=== PATIENT | female | born 1940 | race Caucasian/White ===

== ENCOUNTER 2022-07-11 13:13 | Observation (INO) | payer MEDICARE, BC, SELFPAY ==
[2022-07-11] VITALS (7 sets, daily range): BP systolic 125–163; BP diastolic 45–87; PULSE 78–89; RESP 16–18; TEMP 36.6–36.7; O2SAT 94–99; BMI 17.6; BMI 17.8
--- NOTE | 2022-07-11 13:27 | CRLHL7_ITS ---
For Patients: As a result of the Cures Act, medical imaging exams and procedure reports are released immediately into your electronic medical record. You may view this report before your referring provider. If you have questions, please contact your health care provider. INDICATION: Altered mental status. TECHNIQUE: Chest 2 views. IMPRESSION: Chronic bronchial wall thickening lower lobes. 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 No effusion or pneumothorax. No acute pulmonary consolidation. Mild cardiomegaly with a TAVR prosthesis. Dictated by Thai Foster MD @ 07/11/2022 3:35:55 PM (Electronically Signed)
--- NOTE | 2022-07-11 13:38 | CRLHL7_ITS ---
For Patients: As a result of the Century Cures Act, medical imaging exams and procedure reports are released immediately into your electronic medical record. You may view this report before your referring provider. If you have questions, please contact your health care provider. INDICATION: Headache, vision changes. TECHNIQUE: CTA head with contrast bolus tracking and 3D MIP reconstruction. FINDINGS: There is suboptimal arterial opacification. There is extensive calcified plaque around the carotid siphons. There is no obvious large vessel occlusion. No aneurysm is identified. IMPRESSION: No large vessel occlusion. Please note that all CT scans at this facility use dose modulation, iterative reconstruction, and/or weight-based dosing when appropriate to reduce radiation dose to as low as reasonably achievable. Dictated by George Sadler MD @ 07/11/2022 4:33:25 PM (Electronically Signed)
--- NOTE | 2022-07-11 13:38 | CRLHL7_ITS ---
For Patients: As a result of the Century Cures Act, medical imaging exams and procedure reports are released immediately into your electronic medical record. You may view this report before your referring provider. If you have questions, please contact your health care provider. INDICATION: Headache, vision changes. TECHNIQUE: CTA neck with contrast bolus tracking and 3D MIP reconstruction. FINDINGS: There is very little arterial occlusion, significantly limiting the study. There is carotid atherosclerosis. There is no obvious significant carotid or vertebral artery stenosis or dissection. IMPRESSION: Carotid atherosclerosis. No obvious significant stenosis or dissection on this limited study. Please note that all CT scans at this facility use dose modulation, iterative reconstruction, and/or weight-based dosing when appropriate to reduce radiation dose to as low as reasonably achievable. Dictated by George Sadler MD @ 07/11/2022 4:35:26 PM (Electronically Signed)
--- NOTE | 2022-07-11 13:38 | CRLHL7_ITS ---
For Patients: As a result of the Century Cures Act, medical imaging exams and procedure reports are released immediately into your electronic medical record. You may view this report before your referring provider. If you have questions, please contact your health care provider. INDICATION: Patient change in headache, status post TAVR 07/08 TECHNIQUE: Noncontrast axial CT of the head. Coronal and sagittal reformats. Bone and soft tissue algorithms. COMPARISON: No relevant comparison studies available at this institution. FINDINGS: The ventricles and cortical sulci appear slightly prominent. No midline shift or mass effect. No acute intracranial hemorrhage or extra-axial fluid collection. Eaton-white matter differentiation is grossly maintained. Suggestion of mild hypoattenuation along the posteromedial left occipital lobe is favored artifactual. There is mild supratentorial white matter hypoattenuation, suggestive of chronic microangiopathy. Scattered calcific plaquing of the intracranial ICAs. Midline structures are unremarkable. Bony calvarium appears grossly intact. Paranasal sinuses and mastoid air cells are clear. Orbits are unremarkable. IMPRESSION: 1. No CT evidence of acute intracranial abnormality. 2. Mild cerebral volume loss and mild presumed chronic microangiopathy changes. Please note that all CT scans at this facility use dose modulation, iterative reconstruction, and/or weight-based dosing when appropriate to reduce radiation dose to as low as reasonably achievable. Dictated by Sakina Victoria MD @ 07/11/2022 3:14:45 PM (Electronically Signed)
--- NOTE | 2022-07-11 13:40 | ED.GENADULT ---
HPI - General Adult General Time Seen by Provider: 13:32 Date Seen: 07/11/22 Chief complaint: Post Op Complication Stated complaint: Reaction to heart surgery 07/08 seeing things Time Seen by Provider: 07/11/22 13:25 Source: patient and family Mode of arrival: ambulatory Limitations: no limitations History of Present Illness HPI narrative: 82-year-old female who is postop day 3 status post TAVR who presents today with vision changes and visual hallucinations. Patient notes that she was doing well when she got home, then last night woke up and was seen ?trees and animals and people that did not look like people. This persisted all night. This morning when she looked in the mirror she had ?red poked dots? on her face. When watching gnosticism on TV she noted Polka dots on the alter boys robes as well. She has developed a slight frontal headache in the last hour. She denies chest pain or shortness of breath, no nausea vomiting, no abdominal pain. Notes that just prior to her surgery she was starting to have some urinary symptoms with frequency. Called her back hanger who recommended coming to the emergency department. Related Data Home Medications Medication Instructions Recorded Confirmed aspirin 81 mg capsule 81 mg PO DAILY 07/11/22 07/11/22 estradiol 0.01% (0.1 mg/gram) 1 appful vaginal DAILY 07/11/22 07/11/22 vaginal cream famotidine 40 mg tablet 40 mg PO DAILY 07/11/22 07/11/22 ferrous sulfate 325 mg (65 mg 325 mg PO DIRECTED 07/11/22 07/11/22 iron) tablet,delayed release sodium chloride 1 gram tablet 1,000 mg PO DAILY 07/11/22 07/11/22 Allergies Allergy/AdvReac Type Severity Reaction Status Date / Time latex Allergy Mild Rash Verified 07/11/22 14:00 Sulfa (Sulfonamide Allergy Mild Rash Verified 07/11/22 14:00 Antibiotics) Review of Systems Status of ROS: Reports: 10 or more systems reviewed and unremarkable except as noted in History and below PFSH PFSH Social History Non-prescribed substance use: denies use Exam Narrative: Exam Narrative: General: Well-developed and well-nourished, no acute distress Head: Atraumatic and normocephalic Eyes: Pupils are equal reactive, extraocular motions intact, conjunctiva clear ENT: External nose and ears are normal, posterior pharynx without erythema or exudate Neck: No midline cervical tenderness, full spontaneous range of motion the neck, trachea midline, no adenopathy Heart: Regular rate and rhythm, prominent valve click Lungs: Clear to auscultation bilaterally without wheezes or crackles Abdomen: Soft, nontender, nondistended with active bowel sounds Musculoskeletal: No tenderness, deformity, or edema Neurologic: Awake, alert, and oriented x3, no gross focal neurologic deficits, cranial nerves intact as tested Psych: Mood and affect are appropriate Skin: No rashes Const: Vital Signs, click to edit/add: Vital Signs - 24 hr 07/11/22 13:33 07/11/22 14:00 07/11/22 15:17 Temperature 98.0 F Pulse Rate 81 Pulse Rate [Right Pulse Oximeter] 89 78 Respiratory Rate 18 16 Blood Pressure [Ri ght Upper Arm] 149/87 H 148/78 H Pulse Oximetry 99 97 Oxygen Delivery Me thod Room Air Course Course Hospital Course: Patient seen examined, prior records reviewed. Patient presents today with some visual hallucinations status post TAVR on July 08. On exam here, no focal neurologic deficits and she says her symptoms are improved. She describes Polka dots when she looks at things as well as seen treatment animals, she denies visual floaters or flashers, no eye pain. Slight headache. No other neurologic findings and no neurologic deficits on exam. She denies chest pain or shortness of breath, valve click on exam. Symptoms most likely represent delirium either from medications after her TAVR, postoperative delirium, consider also infectious etiology. CT scan of the head is ordered although symptoms are not typical for intracranial ischemia or hemorrhage. Consider CT scan of the chest but no shortness of breath or chest pain, no crackles on lung exam suggest acute pulmonary edema or failure, or valve pathology. Chest x-rays ordered. Reevaluation(s) Reevaluation #1: Labs independently interpreted by me with mild hyponatremia, CBCs reassuring and creatinine is normal. Urinalysis is pending. CT scan of the head independently interpreted by me does not demonstrate any acute hemorrhage or other intracranial pathology. Chest x-ray and plain early interpreted by me demonstrates aortic prosthesis in place, possible trace infiltrate on the rate, no other acute findings. Radiology report from [facility] reviewed, proximal ICA plaquing with 50% narrowing on the left, less than 50% on the right. No intracranial occlusion or stenosis. Time: 15:26 Reevaluation #2: Urinalysis independently interpreted by me not consistent with infection. Paged interventional cardiology discussed patient's care. Patient recheck, she remains finally stable in emergency department elbow little bit anxious, says that she otherwise feels well. Time: 16:15 Reevaluation #3: Care discussed with Dr. Crenshaw, [facility] who feels that symptoms are not likely to be related to TAVR. Will discuss with Neurology. Time: 16:29 Additional Reevaluation(s): 4:50 p.m. care discussed with [facility] a Neurology, feel that is unlikely this is a stroke symptom but does recommend MRI which could be done tomorrow. Will need to check to see if TAVR is compatible with MRI this close to placement. Recheck patient and discussed plan for admission, possible MRI in the morning. Patient does not want to be admitted. I discussed my concerns with the patient that although she is able to tell that her visual illusions are not real currently, she could get worse and started having confusion that would make her unable to differentiate which she has actually seen verses the solutions. Additionally, concerned that without knowing the etiology of this problem, prognosis and expected clinical course cannot be predicted and patient could get worse fairly acutely in terms of confusion or mentation. She expressed understanding of this, says she feels like her visual hallucinations are improving, and declines admission. She has family who can stay with her tonight. She should contact her primary care doctor tomorrow for MRI, although I am waiting for call back today from Cardiology to find out if the TAVR is compatible. 5:08 p.m. patient is now agreeable to be observed in the hospital overnight. Discussed with Dr. Crenshaw, cardiology again, TAVR is MRI compatible immediately after placement with a 1.5/3 Pili magnet. Care discussed with Dr. Sánchez, hospitalist for admission. Vital Signs Vital signs: Initial Vital Signs Temperature 98.0 F 07/11/22 13:33 Temperature Source Temporal Artery Scan 07/11/22 13:33 Pulse Rate 89 07/11/22 13:33 Respiratory Rate 18 07/11/22 13:33 Blood Pressure 149/87 H 07/11/22 13:33 Blood Pressure Mean 107 07/11/22 13:33 Blood Pressure Position Sitting 07/11/22 13:33 Pulse Oximetry 99 07/11/22 13:33 Oxygen Delivery Method 07/11/22 13:33 Vital Signs Temperature 98.0 F 07/11/22 13:33 Pulse Rate 89 07/11/22 13:33 Respiratory Rate 18 07/11/22 13:33 Blood Pressure 149/87 H 07/11/22 13:33 Pulse Oximetry 99 07/11/22 13:33 Oxygen Delivery Method 07/11/22 13:33 Temperature 98.0 F 07/11/22 13:33 Pulse Rate 81 07/11/22 15:17 Respiratory Rate 16 07/11/22 14:00 Blood Pressure 148/78 H 07/11/22 14:00 Pulse Oximetry 97 07/11/22 15:17 Oxygen Delivery Method 07/11/22 13:33 Medical Decision Making Medical Records Medical records reviewed: Yes I reviewed the patient's medical records Lab Data Lab results reviewed: Yes I reviewed the patient's lab results Labs: Lab Results 07/11/22 07/11/22 07/11/22 Range/Units 14:00 14:00 15:30 WBC 8.39 (4.50-11.00) K/uL RBC 3.85 L (4.00-5.20) m/uL Hgb 12.0 (12.0-16.0) gm/dL Hct 35.8 (33.0-51.0) % MCV 93 (80-100) fL MCH 31 (26-34) pg MCHC 34 (32-36) gm/dL RDW Coeff of [place] 12.9 (11.5-15.5) % Plt Count 175 (140-440) K/uL Neut % (Auto) 72.0 (42.0-72.0) % Lymph % (Auto) 15.9 L (20-44) % Russell % (Auto) 10.3 (0.0-11.0) % Eos % (Auto) 1.2 (0.0-7.0) % Baso % (Auto) 0.4 (0.0-3.0) % Neut # (Auto) 6.05 (1.7-7.0) K/uL Lymph # (Auto) 1.30 (0.90-2.90) K/uL Russell # (Auto) 0.90 (0.00-0.90) K/UL Eos # (Auto) 0.10 (0.00-0.50) K/uL Baso # (Auto) 0.03 (0.00-0.30) K/uL Sodium 131 L (135-149) mmol/L Potassium 3.7 (3.6-5.1) mmol/L Chloride 95 L (96-114) mmol/L Carbon Dioxide 29 (20-32) mmol/L BUN 14 (7-30) mg/dL Creatinine 0.4 L (0.5-1.5) mg/dL Estimated Creat Clear 27.47 Estimated GFR 98 ml/min Glucose 96 (60-115) mg/dL Calcium 10.2 (8.4-10.6) mg/dL Urine Color Light yellow (Yellow) Urine Appearance Clear (Clear) Urine pH 7.0 (5.0-8.5) Ur Specific [place] 1.010 (1.000-1.030) Urine Protein Negative (Negative) Urine Glucose (UA) Negative (Negative) Urine Ketones Negative (Negative) Urine Blood Trace-intact A (Negative) Urine Nitrite Negative (Negative) Urine Bilirubin Negative (Negative) Urine Urobilinogen 0.2 (0.2-1.0) Ur Leukocyte Esterase Trace A (Negative) Urine RBC 2-5 A (0-2) Urine WBC 2-5 (0-5) Ur Squamous Epith Cells Few (None-Few) Urine Bacteria None (None) ECG Data Attestation: I personally reviewed and interpreted this ECG as follows: Prior ECG tracings: not available for review Interpretation: EKG independently interpreted by me performed at Discharge Plan Discharge Clinical Impression: S/P TAVR (transcatheter aortic valve replacement), Hallucinations, visual Patient Disposition: Admitted As Inpatient Condition: Improved
[2022-07-11 14:17] LABS: Basophils Absolute Auto 0.03 K/uL (0.00-0.30); Basophils Percent Auto 0.4 % (0.0-3.0); Eosinophils Percent Auto 1.2 % (0.0-7.0); Hematocrit 35.8 % (33.0-51.0); Immature Granulocytes Abs Auto 0.02 K/uL (0.00-0.30); Immature Granulocytes Pct Auto 0.2 %; Lymphocytes Percent Auto 15.9 % (20-44); Mean Corpuscular HGB Conc 34 gm/dL (32-36); Mean Corpuscular Hemoglobin 31 pg (26-34); Mean Corpuscular Volume 93 fL (80-100); Monocytes Percent Auto 10.3 % (0.0-11.0); Neutrophils Absolute Auto 6.05 K/uL (1.7-7.0); Platelet Count* 175 K/uL (140-440); RDW Coefficient of Variation % 12.9 % (11.5-15.5); Red Blood Count 3.85 m/uL (4.00-5.20); White Blood Count* 8.39 K/uL (4.50-11.00)
[2022-07-11 14:20] LABS: Slide Review Reflex No
[2022-07-11 14:29] LABS: Chloride* 95 mmol/L (96-114)
[2022-07-11 14:30] LABS: Potassium* 3.7 mmol/L (3.6-5.1); Sodium* 131 mmol/L (135-149)
[2022-07-11 14:32] LABS: Carbon Dioxide* 29 mmol/L (20-32); Creatinine* 0.4 mg/dL (0.5-1.5); Est. Creatinine Clearance* 27.47; Estimated Glomerular Filt Rate 98 ml/min
[2022-07-11 14:33] LABS: Blood Urea Nitrogen* 14 mg/dL (7-30); Calcium* 10.2 mg/dL (8.4-10.6); Glucose* 96 mg/dL (60-115)
[2022-07-11 15:40] LABS: Appearance Urine Clear (Clear); Bilirubin Urine Negative (Negative); Blood Urine Trace-intact (Negative); Color Urine Light yellow (Yellow); Glucose Urine Negative (Negative); Ketones Urine Negative (Negative); Leukocyte Esterase Urine Trace (Negative); Nitrite Urine Negative (Negative); Protein Urine Negative (Negative); Urobilinogen Urine 0.2 (0.2-1.0)
[2022-07-11] MEDS: 0.9 % SODIUM CHLORIDE 500 ML 500 ML IV (15:41)
[2022-07-11 16:06] LABS: Squamous Epithelial Cell Urine Few (None-Few)
[2022-07-11 18:10] LABS: SARS PCR* Negative SARS-CoV-2 (Negative)
--- NOTE | 2022-07-11 19:02 | PM.IMHP1 ---
Hospitalist- H&P: HPI History of Present Illness Time Seen by Provider: 18:45 Date Seen: 07/11/22 Chief complaint: Reaction to heart surgery 07/08 Narrative: Astrid Fields is a 82 year old female who underwent a TAVR on 07/09/2022 for severe symptomatic aortic stenosis at [facility] in presented through the ER today for visual hallucinations. After the procedure she recalls sleeping for a long time and feeling very cold for which she had a Rosina Hugger on. She says she was told by the doctors that she was doing so well that she could go home yesterday. On the car ride home her daughter commented that Jacquelyn did not seem herself. When she got to her daughter's house, she slept all day in the sunroom. Shruthi thinks she spent a night at her daughter's house and then was at home alone last night, but that would put three nights in between her surgery and today, but there have only been 2 nights. Last night Shruthi slept in her own bed and felt like she was tired, but afraid to sleep because whenever she closed her eyes she saw shapes that looked like half animal creatures, trees and other forms. She knew they were not real and she does not think she was confused. When she opened her eyes, the shapes were gone, but would come back as soon as she closed her eyes. She was afraid to go to sleep because of this. She then went to the bathroom and looked at her face in the mirror and saw black and red spots all over her face. Again she knew that this was not the case that they were actually there, but she saw them nonetheless. In the morning she was watching mass on TV and saw red and black spots on the alter boys white frocks. That is when she knew for sure that she was just seeing things and came to the ER. In the ER she again saw some shapes near the cabinets, but now she does not see anything abnormal. She had a headache this morning, but that is also gone. She denies any other focal symptoms, confusion, fever, or other vision problems. Shruthi admits to anxiety and says she is chronically anxious and drives my kids nuts. She also says she has a sore back today from laying on the hard table for the CT scan. Review of Systems Const: Reports: chills (first night after TAVR) and fatigue (for two days after TAVR sleeping more); Denies: fever Eyes: Reports: change in vision, dry eyes (chronic) and other (visual hallucinations) ENMT: Reports: throat pain (just after surgery); Denies: vertigo or nose bleeds Cardio: Denies: chest pain, palpitations or shortness of breath with exertion Resp: Denies: shortness of breath, cough or wheezing GI: Reports: abdominal pain (every evening for years), heartburn (occassionally, chronic) and constipation (occassionally, stopped iron); Denies: nausea, vomiting or diarrhea : Denies: painful urination, urinary frequency or urinary urgency Musculo: Reports: back pain Integ/Breast: Denies: rash or itching Neuro: Reports: headache (earlier today, gone now); Denies: numbness in extremities, weakness in extremities, lack of coordination, dizziness, vertigo, confusion or slurred speech Psych: Reports: anxiety Endo: Reports: fatigue (for two days after TAVR sleeping more) and cold intolerance Allergy/Immuno: Denies: wheezing PFSH PFSH Medical History (Updated 07/11/22 @ 19:56 by Pauly Sánchez MD) Cachexia Chronic hyponatremia Chronic superficial gastritis without bleeding Colon polyp GERD (gastroesophageal reflux disease) H/O echocardiogram Iron deficiency anemia Osteoporosis Severe aortic stenosis Surgical History (Updated 07/11/22 @ 19:56 by Pauly Sánchez MD) H/O rectocele repair (08/25/09) H/O rectocele repair (08/24/10) H/O tubal ligation (~1974) History of arthroscopy of left shoulder (~2008) Hx laparoscopic cholecystectomy (08/28/12) Hx of colonoscopy Hx of esophagogastroduodenoscopy (02/12/16) Family History (Updated 07/11/22 @ 19:53 by Pauly Sánchez MD) Sister Breast cancer Father Cancer Mother Lymphoma Social History (Updated 07/11/22 @ 19:51 by Pauly Sánchez MD) Narrative: Living independently. 2 years ago. He had dementia with behavioral disturbances and she says she is still not over his decline and . Smoked, 20 pack years, quit 49 years ago. Denies alcohol use. Denies recreational drug use. FULL CODE. Highest level of school completed/degree received: high school graduate Smoking Status: Former smoker Do you use any of these nicotine containing products: None How often do you have a drink containing alcohol: never How often do you have six or more drinks on one occasion: Never AUDIT-C Alcohol total score: 0 Non-prescribed substance use: denies use Caffeine: Yes service: No Meds Home Medications and Allergies Home Medications Medication Instructions Recorded Confirmed Type aspirin 81 mg capsule 81 mg PO DAILY 07/11/22 07/11/22 History calcium carbonate 600 mg-vitamin 1 tab PO DAILY 07/11/22 07/11/22 History D3 10 mcg (400 unit) tablet (Calcium 600 + D(3)) estradiol 0.01% (0.1 mg/gram) 1 appful vaginal DAILY PRN vaginal 07/11/22 07/11/22 History vaginal cream dryness famotidine 40 mg tablet 40 mg PO DAILY 07/11/22 07/11/22 History ferrous sulfate 325 mg (65 mg 325 mg PO DIRECTED 07/11/22 07/11/22 History iron) tablet,delayed release polyethylene glycol 3350 17 8.5 - 17 g PO DAILY PRN 07/11/22 07/11/22 History gram/dose oral powder (Miralax) sodium chloride 1 gram tablet 1,000 mg PO DAILY 07/11/22 07/11/22 History Allergies Allergy/AdvReac Type Severity Reaction Status Date / Time latex Allergy Mild Rash Verified 07/11/22 14:00 Sulfa (Sulfonamide Allergy Mild Rash Verified 07/11/22 14:00 Antibiotics) lisinopril AdvReac Mild Cough Verified 07/11/22 19:44 Exam Narrative: Exam Narrative: General: No acute distress. Awake alert oriented x3. Very kyphotic. HEENT: Normocephalic atraumatic, pupils equally round and reactive to light and accommodation. Oropharynx clear. Mucous membranes are moist. No cervical lymphadenopathy, thyromegaly or carotid bruits. No JVD. Cardiovascular: Regular rate and rhythm. Grade 1/6 systolic murmur loudest at the left lower sternal border. Chest: No increased work of breathing. Clear to auscultation bilaterally. No crackles or wheezes. Abdomen: Bowel sounds present. Soft, nondistended, nontender. No hepatosplenomegaly or masses. Groin: Normal external female genitalia. Bilateral femoral artery catheter wounds that have been glued. No erythema or drainage. These appear to be well and healing. Extremities: No edema, no cyanosis or clubbing. Skin: No jaundice, no pallor, no rashes. Neuro: There are no focal deficits. Romberg is negative. Gait is within normal limits. Cranial nerves 2-12 are intact. Extraocular movements are full. No nystagmus. No facial asymmetry. Tongue is midline. Peripheral vision and vision are grossly intact. She denies any hallucinations at present. Strength is 5/5 in all 4 extremities. DTRs intact and symmetric. Light touch sensation is intact in face body and extremities. Coordination is intact in upper and lower extremities. Const: Vital Signs, click to edit/add: Vital Signs - 24 hr 07/11/22 13:33 07/11/22 14:00 07/11/22 15:17 Temperature 98.0 F Pulse Rate 81 Pulse Rate [Right Pulse Oximeter] 89 78 Respiratory Rate 18 16 Blood Pressure [Ri ght Arm] Blood Pressure [Ri ght Upper Arm] 149/87 H 148/78 H Pulse Oximetry 99 97 Oxygen Delivery Me thod Room Air 07/11/22 18:34 Temperature 98.0 F Pulse Rate Pulse Rate [Right Pulse Oximeter] Respiratory Rate 16 Blood Pressure [Ri ght Arm] 163/71 H Blood Pressure [Ri ght Upper Arm] Pulse Oximetry 96 Oxygen Delivery Me thod Room Air Documenting provider has reviewed patient's vital signs: yes Hospitalist - H&P: Result Labs Labs: Short CBC 07/11/22 Range/Units 14:00 WBC 8.39 (4.50-11.00) K/uL Hgb 12.0 (12.0-16.0) gm/dL Hct 35.8 (33.0-51.0) % Plt Count 175 (140-440) K/uL BMP 07/11/22 14:00 Sodium 131 L Potassium 3.7 Chloride 95 L Carbon Dioxide 29 BUN 14 Creatinine 0.4 L Glucose 96 Calcium 10.2 Urine 07/11/22 Range/Units 15:30 Urine Color Light yellow (Yellow) Urine Appearance Clear (Clear) Urine pH 7.0 (5.0-8.5) Ur Specific [place] 1.010 (1.000-1.030) Urine Protein Negative (Negative) Urine Glucose (UA) Negative (Negative) Ordering Physician: Nacho Schaefer M.D. Date of Service: 07/11/22 Procedure(s): CT head/brain wo con Accession Number(s): [id number] cc: Nacho Schaefer M.D.; Liz Moseley D.O.~ For Patients: As a result of the Cures Act, medical imaging exams and procedure reports are released immediately into your electronic medical record. You may view this report before your referring provider. If you have questions, please contact your health care provider. INDICATION: Patient change in headache, status post TAVR 07/08 TECHNIQUE: Noncontrast axial CT of the head. Coronal and sagittal reformats. Bone and soft tissue algorithms. COMPARISON: No relevant comparison studies available at this institution. FINDINGS: The ventricles and cortical sulci appear slightly prominent. No midline shift or mass effect. No acute intracranial hemorrhage or extra-axial fluid collection. [place]-white matter differentiation is grossly maintained. Suggestion of mild hypoattenuation along the posteromedial left occipital lobe is favored artifactual. There is mild supratentorial white matter hypoattenuation, suggestive of chronic microangiopathy. Scattered calcific plaquing of the intracranial ICAs. Midline structures are unremarkable. Bony calvarium appears grossly intact. Paranasal sinuses and mastoid air cells are clear. Orbits are unremarkable. IMPRESSION: 1. No CT evidence of acute intracranial abnormality. 2. Mild cerebral volume loss and mild presumed chronic microangiopathy changes. Please note that all CT scans at this facility use dose modulation, iterative reconstruction, and/or weight-based dosing when appropriate to reduce radiation dose to as low as reasonably achievable. Dictated by Sakina Victoria MD @ 07/11/2022 3:14:45 PM (Electronically Signed) Ordering Physician: Nacho Schaefer M.D. Date of Service: 07/11/22 Procedure(s): CT angio head Accession Number(s): [id number] cc: Nacho Schaefer M.D.; Liz Moseley D.O.~ For Patients: As a result of the Cures Act, medical imaging exams and procedure reports are released immediately into your electronic medical record. You may view this report before your referring provider. If you have questions, please contact your health care provider. INDICATION: Headache, vision changes. TECHNIQUE: CTA head with contrast bolus tracking and 3D MIP reconstruction. FINDINGS: There is suboptimal arterial opacification. There is extensive calcified plaque around the carotid siphons. There is no obvious large vessel occlusion. No aneurysm is identified. IMPRESSION: No large vessel occlusion. Please note that all CT scans at this facility use dose modulation, iterative reconstruction, and/or weight-based dosing when appropriate to reduce radiation dose to as low as reasonably achievable. Dictated by George Sadler MD @ 07/11/2022 4:33:25 PM (Electronically Signed) Ordering Physician: Nacho Schaefer M.D. Date of Service: 07/11/22 Procedure(s): CT angio neck Accession Number(s): [id number] cc: Nacho Schaefer M.D.; Liz Moseley D.O.~ For Patients: As a result of the Cures Act, medical imaging exams and procedure reports are released immediately into your electronic medical record. You may view this report before your referring provider. If you have questions, please contact your health care provider. INDICATION: Headache, vision changes. TECHNIQUE: CTA neck with contrast bolus tracking and 3D MIP reconstruction. FINDINGS: There is very little arterial occlusion, significantly limiting the study. There is carotid atherosclerosis. There is no obvious significant carotid or vertebral artery stenosis or dissection. IMPRESSION: Carotid atherosclerosis. No obvious significant stenosis or dissection on this limited study. Please note that all CT scans at this facility use dose modulation, iterative reconstruction, and/or weight-based dosing when appropriate to reduce radiation dose to as low as reasonably achievable. Dictated by George Sadler MD @ 07/11/2022 4:35:26 PM (Electronically Signed) Assessment and Plan Assessment and plan (1) Hallucinations, visual: Status: Acute (2) S/P TAVR (transcatheter aortic valve replacement): Problem comment: Right transfemoral TAVR with a 23 mm Chantel S3 / ULTRA (if ) valve (+2cc, 3% oversized) Status: Acute Plan The ER physician spoke with marketing content manager at [facility] who did not think the visual hallucinations were directly related to the TAVR procedure. Also said that the TAVR valve it is MRI compatible immediately after being placed. Differential for visual hallucinations in the setting include delirium, stroke, seizure, prodrome to a seizure or migraine headache, retinal or optical disturbance, medication reaction, or other. She is on very few medications, and only a baby aspirin is new. None of the medications that she is on her psychoactive. The visual hallucinations are in both eyes, which rules out a retinal or optical disturbance. At this point I favor delirium, as I note that her perception of time is off and she is confused about some details since her surgery, she is quite anxious both now and according to her at baseline, and she has had normally a recent procedure, but has been at 3 different locations the last 3 days which may contribute to confusion. Stroke is also a possibility, but less likely. Admit for observation and obtain an MRI in the morning.
--- NOTE | 2022-07-11 19:18 | PC.NURSE ---
Up to floor at 1830. Pt. alert and oriented x4. Ambulating independently in room to BR. VSS. Denies chest pain, SOB, N/V/pain. tolerating a reg diet.
[2022-07-11] MEDS: SODIUM CHLORIDE 0.9 % (FLUSH) 10 ML SYRINGE 5 ML IVF (20:55)
[2022-07-11] MEDS: ACETAMINOPHEN 500 MG TABLET 1000 MG PO (22:45)
[2022-07-12 03:00] VITALS: BP 106/52; PULSE 84; RESP 18; TEMP 36.9; O2SAT 94
--- NOTE | 2022-07-12 05:48 | PC.NURSE ---
[id number] Pt pleasant and cooperative, slept fair during the night. C/O chronic back pain 3-11/29, tylenol, pillow and aqua-k pad used to help relieve pain, somewhat affective. No hallucinations noted this shift, denies chest pain, sob, headache, lightheaded/dizzy, nausea and vomiting. Ambulating to BR independently, tolerated activity well. two surgical sites to bilateral femoral arteries from TAVR procedure open to air, no drainage.
[2022-07-12 07:42] VITALS: BP 125/64; PULSE 86; RESP 16; TEMP 36.9; O2SAT 93
[2022-07-12 07:45] VITALS: PULSE 89
[2022-07-12 07:46] VITALS: PULSE 86; RESP 16
[2022-07-12] MEDS: ASPIRIN 81 MG TABLET EC PO (08:40)
[2022-07-12] MEDS: FAMOTIDINE 20 MG TABLET 40 MG PO (08:40)
[2022-07-12] MEDS: SODIUM CHLORIDE 1 GM TABLET PO (08:40)
[2022-07-12] MEDS: SODIUM CHLORIDE 0.9 % (FLUSH) 10 ML SYRINGE 5 ML IVF (08:41)
[2022-07-12 10:53] VITALS: BP 150/71; PULSE 82; RESP 18; TEMP 36.3; O2SAT 95
--- NOTE | 2022-07-12 11:15 | CRLHL7_ITS ---
For Patients: As a result of the Century Cures Act, medical imaging exams and procedure reports are released immediately into your electronic medical record. You may view this report before your referring provider. If you have questions, please contact your health care provider. INDICATION: Visual hallucinations. TECHNIQUE: Brain MRI without contrast. The following sequences were obtained: Sagittal T1 weighted sequence. DWI and ADC mapping sequences. Axial FLAIR and DILAN T2 weighted sequences. Susceptibility or GRE sequence. COMPARISON: Head CT from 07/11/2022. FINDINGS: Small focus of diffusion restriction within the right parietal lobe cortex, compatible with an acute infarct. Few additional punctate recent infarcts within the nearby right parietal subcortical white matter and left cerebellar hemisphere. No evidence of acute or chronic intracranial blood products. Patchy FLAIR hyperintensities throughout the supratentorial white matter, and to a lesser extent the central brainstem, typical for chronic microvascular ischemic change. Moderate generalized parenchymal volume loss. No mass effect or herniation. No hydrocephalus or extra-axial collections. The pituitary gland, parasellar structures and optic chiasm are normal. All the major intracranial vascular structures demonstrate normal flow-related signal. The orbital contents are normal. No calvarial or skull base marrow replacing process. No obstructive sinus disease. No extracranial soft tissue findings. IMPRESSION: 1. 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 No acute intracranial hemorrhage. 2. Moderate chronic microvascular ischemic changes within the supratentorial white matter, and to a lesser extent the central brainstem. Dictated by Carlito Steele MD @ 07/12/2022 11:57:16 AM (Electronically Signed)
--- NOTE | 2022-07-12 12:14 | PC.NURSE ---
End of shift. Pt has been very pleasant. no pain she is still seeing things on and off at times. md was updated flashing lights when she close and opens her eyes. no pain so far. she has heat to her back. she denies chest pain, sob, headache, lightheaded/dizzy, nausea and vomiting.? She is up ab jay in the room. , tolerated activity well.? two surgical sites to bilateral femoral arteries from TAVR procedure open to air, no drainage.? SL is patent.
--- NOTE | 2022-07-12 12:50 | P.DS_ITS ---
DS: Providers Provider Date Seen: 07/12/22 Date of admission: 07/11/22 17:28 Primary care physician: Liz Moseley DO Admitting Clinician: Pauly Sánchez MD Attending Physician on discharge: Newton Morales MD Date of Discharge: 07/12/22 DS: Diagnosis Discharge Diagnosis (1) Stroke: Status: Acute Problem details: MRI shows small new right parietal and left cerebellar stroke, suspicious for embolic stroke. Patient declines further evaluation at this time. Notably she had recent TAVR with recent echo. Cardiac monitoring here was normal. CTA of head and neck were unremarkable as well. Initiate Plavix plus aspirin for 1 month then aspirin to continue. Patient declines further outpatient monitoring or statin therapy at this time. (2) S/P TAVR (transcatheter aortic valve replacement): Status: Acute Problem details: Right transfemoral TAVR with a 23 mm Chantel S3 / ULTRA (if ) valve (+2cc, 3% oversized) (3) Hallucinations, visual: Status: Acute Problem details: Improved though still having mild symptoms. Possibly related to MRI findings DS: Summary Hospital Course Hospital Course: 82-year-old female status post TAVR 5 days ago presents with onset of visual hallucinations in the last day. Admitted to the hospital for evaluation of this. Overnight her symptoms have largely resolved though she still reports still seeing some abnormalities such as flashing lights when she opens her eyes. She recognizes these as unreal and is not delusional. CTA of the head and neck and MRI of the brain were obtained. Significant findings are primarily new small presumably embolic infarcts in right parietal and left occipital lobes. Had a long discussion with the patient about further evaluation treatment. She is quite adamant that she does not want aggressive evaluation and treatment. She was even quite reluctant to begin clopidogrel. She did not want any further outpatient evaluation. She feels like she spends too much time with doctors already. I did discuss risks and benefits of all of they potential evaluation and management for stroke. At this point she will accept adding clopidogrel to aspirin but no other interventions. She can discuss this with her primary care provider, Dr. Howard at her follow-up appointment. Status at Discharge Functional status at discharge: independent ambulation Overall status at discharge: patient is back to baseline Time Spent with Patient Time attestation: Total time spent providing and/or coordinating discharge services: Time spent: Greater than 30 minutes Exam Narrative: Exam Narrative: She is alert and appears in no distress. Speech is normal. Head is without trauma. Extraocular movements are full. Visual gotti are intact. No facial asymmetry. Oropharynx is normal. Tongue is midline. Intact sensation in her face. Respirations are clear to auscultation. Cardiovascular S1, S2, regular rate and rhythm. Abdomen: Bowel sounds active. Abdomen is soft without tenderness or mass. Upper extremities bilaterally with 5/5 strength in shoulder flexion and extension, elbow flexion extension, wrist flexion extension and head of ict strength and finger extension. Rapid finger movements normal. [id number] normal. Lower extremity bilateral strength with hip flexion, knee flexion and extension, ankle dorsiflexion and plantar flexion all 5/5. Babinski is downgoing toe. Heel-ruth is normal. Const: Vital Signs, click to edit/add: Vital Signs - 24 hr 07/11/22 13:33 07/11/22 14:00 07/11/22 15:17 Temperature 98.0 F Pulse Rate 81 Pulse Rate [Pulse Oximeter] Pulse Rate [Right Pulse Oximeter] 89 78 Respiratory Rate 18 16 Blood Pressure [Ri ght Arm] Blood Pressure [Ri ght Upper Arm] 149/87 H 148/78 H Pulse Oximetry 99 97 Oxygen Delivery Me thod Room Air 07/11/22 18:34 07/11/22 19:00 07/11/22 23:00 Temperature 98.0 F 97.8 F 98.0 F Pulse Rate Pulse Rate [Pulse Oximeter] 89 Pulse Rate [Right Pulse Oximeter] Respiratory Rate 16 16 16 Blood Pressure [Ri ght Arm] 163/71 H 143/67 H 125/45 L Blood Pressure [Ri ght Upper Arm] Pulse Oximetry 96 96 94 Oxygen Delivery Me thod Room Air Room Air Room Air 07/11/22 23:59 07/12/22 03:00 07/12/22 07:42 Temperature 98.4 F 98.5 F Pulse Rate 89 Pulse Rate [Pulse Oximeter] 84 86 Pulse Rate [Right Pulse Oximeter] Respiratory Rate 18 16 Blood Pressure [Ri ght Arm] 106/52 L 125/64 Blood Pressure [Ri ght Upper Arm] Pulse Oximetry 94 93 Oxygen Delivery Pa thod Room Air Room Air 07/12/22 07:45 07/12/22 07:46 07/12/22 10:53 Temperature 97.4 F L Pulse Rate 89 Pulse Rate [Pulse Oximeter] 86 82 Pulse Rate [Right Pulse Oximeter] Respiratory Rate 16 18 Blood Pressure [Ri ght Arm] 150/71 H Blood Pressure [Ri ght Upper Arm] Pulse Oximetry 95 Oxygen Delivery Me thod Room Air Documenting provider has reviewed patient's vital signs: yes DS: Data Data Completed and Pending Labs on day of discharge: Labs from last 24 hours 07/11/22 07/11/22 07/11/22 17:20 15:30 14:00 WBC RBC Hgb Hct MCV MCH MCHC RDW Coeff of [place] Plt Count Neut % (Auto) Lymph % (Auto) [place] % (Auto) Eos % (Auto) Baso % (Auto) Neut # (Auto) Lymph # (Auto) [place] # (Auto) Eos # (Auto) Baso # (Auto) Sodium 131 L Potassium 3.7 Chloride 95 L Carbon Dioxide 29 BUN 14 Creatinine 0.4 L Estimated Creat Clear 27.47 Estimated GFR 98 Glucose 96 Calcium 10.2 Urine Color Light yellow Urine Appearance Clear Urine pH 7.0 Ur Specific [place] 1.010 Urine Protein Negative Urine Glucose (UA) Negative Urine Ketones Negative Urine Blood Trace-intact A Urine Nitrite Negative Urine Bilirubin Negative Urine Urobilinogen 0.2 Ur Leukocyte Esterase Trace A Urine RBC 2-5 A Urine WBC 2-5 Ur Squamous Epith Cells Few Urine Bacteria None SARS-CoV-2 (PCR) Negative SARS-CoV-2 07/11/22 14:00 WBC 8.39 RBC 3.85 L Hgb 12.0 Hct 35.8 MCV 93 MCH 31 MCHC 34 RDW Coeff of [place] 12.9 Plt Count 175 Neut % (Auto) 72.0 Lymph % (Auto) 15.9 L [place] % (Auto) 10.3 Eos % (Auto) 1.2 Baso % (Auto) 0.4 Neut # (Auto) 6.05 Lymph # (Auto) 1.30 [place] # (Auto) 0.90 Eos # (Auto) 0.10 Baso # (Auto) 0.03 Sodium Potassium Chloride Carbon Dioxide BUN Creatinine Estimated Creat Clear Estimated GFR Glucose Calcium Urine Color Urine Appearance Urine pH Ur Specific [place] Urine Protein Urine Glucose (UA) Urine Ketones Urine Blood Urine Nitrite Urine Bilirubin Urine Urobilinogen Ur Leukocyte Esterase Urine RBC Urine WBC Ur Squamous Epith Cells Urine Bacteria SARS-CoV-2 (PCR) Imaging MR Brain: Radiologist's impression: Small focus of diffusion restriction within the right parietal lobe cortex, compatible with an acute infarct. Few additional punctate recent infarcts within the nearby right parietal subcortical white matter and left cerebellar hemisphere.? No evidence of acute or chronic intracranial blood products. Patchy FLAIR hyperintensities throughout the supratentorial white matter, and to a lesser extent the central brainstem, typical for chronic microvascular ischemic change. Moderate generalized parenchymal volume loss. No mass effect or herniation. No hydrocephalus or extra-axial collections. The pituitary gland, parasellar structures and optic chiasm are normal. All the major intracranial vascular structures demonstrate normal flow-related signal. The orbital contents are normal. No calvarial or skull base marrow replacing process. No obstructive sinus disease. No extracranial soft tissue findings. IMPRESSION: 1. 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 No acute intracranial hemorrhage. 2. Moderate chronic microvascular ischemic changes within the supratentorial white matter, and to a lesser extent the central brainstem. Dictated by Carlito Steele MD @ 07/12/2022 11:57:[address]- Other: Radiologist's impression: CTA neck with contrast bolus tracking and 3D MIP reconstruction. FINDINGS: There is very little arterial occlusion, significantly limiting the study. There is carotid atherosclerosis. There is no obvious significant carotid or vertebral artery stenosis or dissection. IMPRESSION: Carotid atherosclerosis. No obvious significant stenosis or dissection on this limited study. CTA head with contrast bolus tracking and 3D MIP reconstruction. FINDINGS: There is suboptimal arterial opacification. There is extensive calcified plaque around the carotid siphons. There is no obvious large vessel occlusion. No aneurysm is identified. IMPRESSION: No large vessel occlusion. Discharge Plan Discharge Disposition: Home, Self-Care Date of Admission: 07/11/22 17:28 Primary Care Provider: Liz Moseley Condition: Improved Anticipated Discharge Date/Time: 07/12/22 13:06 Discharge Medications: New clopidogrel 75 mg tablet 75 mg PO DAILY Qty: 30 0RF Continued aspirin 81 mg capsule 81 mg PO DAILY estradiol 0.01 % (0.1 mg/gram) cream 1 appful VAGINAL DAILY PRN (Reason: vaginal dryness) famotidine 40 mg tablet 40 mg PO DAILY sodium chloride 1 gram tablet 1,000 mg PO DAILY ferrous sulfate 325 mg (65 mg iron) tablet,delayed release (DR/EC) 325 mg PO DIRECTED Label Comments: take one tablet by mouth Tuesday and calcium carbonate-vitamin D3 [Calcium 600 + D(3)] 600 mg-10 mcg (400 unit) tablet 1 tab PO DAILY polyethylene glycol 3350 [Miralax] 17 gram/dose powder 8.5 - 17 g PO DAILY PRN Discharge Orders: Discharge Order (Routine); Ordered 07/12/22 Ordered By: Andreas Morales Additional Instructions: I am optimistic that you will have a good recovery from these small strokes. I think the visual hallucinations will continue to improve. We talked today about tests and treatments that might prevent another stroke. It is possible that another stroke could be much more serious and possibly disabling. Talk with Dr. Moseley about your goals of care and how to keep yourself healthy and independent. She will help you decide what other tests or treatments would be beneficial Activity Level: Activity as Tolerated Discharge Diet: Regular Follow Up Appointments: Liz Moseley DO [Primary Care Provider] - (Patient will follow-up on about July 27 for previously scheduled appointment) Forms: [email or web address] Info Instructions
[2022-07-12 13:24] VITALS: PULSE 89; RESP 18; TEMP 36.3
[2022-07-12] MEDS: CLOPIDOGREL 75 MG TABLET PO (13:29)
== END 2022-07-12 14:35 | disposition home or self-care (01) ==
LOC: ED 17:10 → MEDSURG 17:29
PROVIDERS: Admitting Provider Family Medicine; Emergency Provider Family Medicine; PCP Family Medicine; Visit Provider Family Medicine
DX: R44.1 Visual hallucinations (principal); I63.9 Cerebral infarction, unspecified; E87.1 Hypo-osmolality and hyponatremia; F05 Delirium due to known physiological condition; Z95.2 Presence of prosthetic heart valve; Z79.82 Long term (current) use of aspirin; R51.9 Headache, unspecified; F41.9 Anxiety disorder, unspecified; R53.83 Other fatigue; M54.9 Dorsalgia, unspecified; M81.0 Age-related osteoporosis without current pathological fracture; Z87.898 Personal history of other specified conditions; Z98.890 Other specified postprocedural states; Z98.51 Tubal ligation status; Z87.891 Personal history of nicotine dependence
CPT/HCPCS: 36415; 70450; 70496; 70498; 70551; 71046; 80048; 81001; 85025; 87635; 96361; 97165; 99285; G0378; A9270; J7120; Q9967

== ENCOUNTER 2022-08-06 10:33 | Outpatient (CLI) | payer MEDICARE, BC, SELFPAY | END 2022-08-06 10:34 | disposition home or self-care (01) | LOC: RAD 10:35 | PROVIDERS: PCP Family Medicine; Referring Provider Physician Assistant Medical | DX: I35.0 Nonrheumatic aortic (valve) stenosis (principal); I51.7 Cardiomegaly; I34.0 Nonrheumatic mitral (valve) insufficiency; I07.1 Rheumatic tricuspid insufficiency | CPT/HCPCS: 93308; 93321; 93325 ==

== ENCOUNTER 2023-12-09 12:34 | Inpatient (IN) | payer MEDICARE, BC, SELFPAY ==
[2023-12-09] VITALS (7 sets, daily range): BP systolic 119–176; BP diastolic 44–67; PULSE 71–87; RESP 18–24; TEMP 36.3–36.7; O2SAT 90–98; BMI 19.5; BMI 19.9
--- NOTE | 2023-12-09 13:01 | ED.ABDPAIN ---
HPI - Abdominal Pain General Time Seen by Provider: 13:01 Date Seen: 12/09/23 Chief Complaint: Abdominal Pain Stated Complaint: back and abdominal pain Time Seen by Provider: 12/09/23 12:34 Source: patient and RN notes reviewed Mode of arrival: ambulatory Limitations: no limitations History of Present Illness HPI narrative: This 83-year-old female is ambulatory into the ED with increasing mid to low back pain beyond her her usual, also now with some abdominal pain. She has no fall or injury to her back but does admit that when this started she did lift heavy or suitcase. She has had a history of a compression fracture in her back, is wondering if that is what she is having. There is no pain into the legs, she is still able to ambulate. She notes that she has maybe not urinating as much but no dysuria, no hematuria. She has some generalized abdominal pain, feels like she is constipated, has had small bowel movements last 2 days. She does not tolerate narcotic pain medicines due to nausea. They tried gabapentin when she was in the hospital reportedly for her compression fracture in her back in 2020. She states her doctor did not really want to keep her on this for the sedation and the potential for falls at night. She will use some Tylenol. Appetite is unchanged, she admits her appetite is never very good but she is still able to eat, no nausea or vomiting. There has been no fevers or chills. She states she does have a history of constipation, is wondering if she is constipated. MD elicited complaint: abdominal pain Pertinent past history: constipation Related Data Home Medications ?Medication ?Instructions ?Recorded ?Confirmed aspirin 81 mg capsule 81 mg PO DAILY 07/11/22 12/09/23 calcium carbonate 600 mg-vitamin 1 tab PO DAILY 07/11/22 12/09/23 D3 10 mcg (400 unit) tablet (Calcium 600 + D(3)) estradiol 0.01% (0.1 mg/gram) 1 appful vaginal DAILY PRN vaginal 07/11/22 12/09/23 vaginal cream dryness famotidine 40 mg tablet 40 mg PO DAILY 07/11/22 12/09/23 ferrous sulfate 325 mg (65 mg 325 mg PO DIRECTED 07/11/22 12/09/23 iron) tablet,delayed release polyethylene glycol 3350 17 8.5 - 17 g PO DAILY PRN 07/11/22 12/09/23 gram/dose oral powder (Miralax) sodium chloride 1 gram tablet 1,000 mg PO DAILY 07/11/22 12/09/23 amlodipine 5 mg tablet 5 mg PO DAILY 12/09/23 12/09/23 omeprazole 40 mg capsule,delayed 40 mg PO DAILY 12/09/23 12/09/23 release Previous Rx's ?Medication ?Instructions ?Recorded gabapentin 100 mg capsule 100 mg PO TID PRN #30 caps 12/09/23 Allergies Allergy/AdvReac Type Severity Reaction Status Date / Time latex Allergy Mild Rash Verified 12/09/23 15:12 Sulfa (Sulfonamide Allergy Mild Rash Verified 12/09/23 15:12 Antibiotics) lisinopril AdvReac Mild Cough Verified 12/09/23 15:12 Review of Systems Status of ROS Reports: 6 or more systems reviewed and unremarkable except as noted in History and below [facility] Medical History (Updated 12/09/23 @ 23:49 by Andreas Morales MD) Stroke ?I63.9 - Cerebral infarction, unspecified (ICD-10) H/O echocardiogram ?Z92.89 - Personal history of other medical treatment (ICD-10) Chronic hyponatremia ?E87.1 - Hypo-osmolality and hyponatremia (ICD-10) Cachexia ?R64 - Cachexia (ICD-10) Iron deficiency anemia ?D50.9 - Iron deficiency anemia, unspecified (ICD-10) Chronic superficial gastritis without bleeding ?K29.30 - Chronic superficial gastritis without bleeding (ICD-10) Osteoporosis ?M81.0 - Age-related osteoporosis without current pathological fracture (ICD-10) GERD (gastroesophageal reflux disease) ?K21.9 - Gastro-esophageal reflux disease without esophagitis (ICD-10) Colon polyp ?K63.5 - Polyp of colon (ICD-10) Severe aortic stenosis ?I35.0 - Nonrheumatic aortic (valve) stenosis (ICD-10) Surgical History H/O rectocele repair (08/24/10) ?Z98.890 - Other specified postprocedural states (ICD-10) H/O rectocele repair (08/25/09) ?Z98.890 - Other specified postprocedural states (ICD-10) Hx laparoscopic cholecystectomy (08/28/12) ?Z90.49 - Acquired absence of other specified parts of digestive tract (ICD-10) H/O tubal ligation (~1974) ?Z98.51 - Tubal ligation status (ICD-10) Hx of esophagogastroduodenoscopy (02/12/16) ?Z98.890 - Other specified postprocedural states (ICD-10) Hx of colonoscopy ?Z98.890 - Other specified postprocedural states (ICD-10) History of arthroscopy of left shoulder (~2008) ?Z98.890 - Other specified postprocedural states (ICD-10) Family History Sister Breast cancer Father Cancer Mother Lymphoma Social History (Updated 12/09/23 @ 23:44 by Andreas Morales MD) Narrative: Living independently. 2 years ago. He had dementia with behavioral disturbances and she says she is still not over his decline and . Smoked, 20 pack years, quit 50 years ago. Nonsmoker.. DNR. She reports that she was quite unhappy with longterm placement when she had her T12 compression fracture about 3 years ago. She said she would rather than return to a longterm. She is more afraid of disability than . What is your current living situation?: I presently have a place to live Problems where you live: no known problems Problems where you live details: n/a In the past 12 months, utilities in danger of being shut off: no In past 12 months, lack of transportation kept you from medical appts, meetings, work, or getting things needed for daily living: no In the past 12 mos, have been you worried that your food would run out before you had money to buy more?: never true In the past 12 mos, the food you bought just didn't last and you didn't have money to buy more?: never true Highest level of school completed/degree received: high school graduate Smoking Status: Former smoker Do you use any of these nicotine containing products: None How often do you have a drink containing alcohol: never How often do you have six or more drinks on one occasion: Never AUDIT-C Alcohol total score: 0 Non-prescribed substance use: denies use Caffeine: Yes (2 cups of coffee) How often does anyone, including family, friends and others, physically hurt you: never How often does anyone, including family, friends and others, insult or talk down to you: never How often does anyone, including family, friends and others, threaten you with harm: never How often does anyone, including family, friends and others, scream or curse at you: never service: No Exam Const: Vital Signs, click to edit/add: Vital Signs - 24 hr 12/09/23 12:39 12/09/23 14:27 12/09/23 16:13 Temperature 97.3 F L Pulse Rate [Pulse Oximeter] 87 80 87 Respiratory Rate 18 Blood Pressure [Ri ght Upper Arm] 176/67 H Pulse Oximetry 98 93 92 Oxygen Delivery Me thod Room Air Room Air Room Air This 83-year-old female is a very slender build, appears frail but is otherwise alert, interactive, no apparent distress. Face atraumatic, sclera clear, equal pupils. Able to speak in complete sentences. Under, no masses, no jugular venous distension, no thyromegaly masses or nodules. She can sit up but it is somewhat uncomfortable for her. She has significant kyphosis. At the end of the thoracic spine midline and into the lumbar spine she does feel some pain, she states it is worst at the end of the thoracic spine and upper lumbar back. CV regular rate and rhythm, do hear a systolic murmur, normal S1-S2, no S3-S4. Abdomen is soft, bowel sounds are present, no rebound or guarding, no organomegaly at this time. She has no lower extremity edema. No focal change in strength or sensory noted. Documenting provider has reviewed patient's vital signs: yes Course Course ED Course: We can proceed with CT imaging to rule out compression fracture. For doing CT imaging, have discussed with patient that I do think we need to consider abdominal imaging. At age 83 and with her frailty, patient could have significant underlying pathology be on constipation. Her exam is otherwise reassuring but certainly do not want to miss anything pertinent. Retroperitoneal pathology in the abdomen could present with more back symptoms. She certainly does have tenderness over the midline in that lower thoracic area. Compression fracture of her spine certainly is a consideration. It is possible that we may not see this on imaging but if her back is as bad as which she reports, I expect we may visualize an acute abnormality. Will get baseline labs. They do feel that she does need some pain management. Will have her on pulse oximetry, established an IV and try a very low dose of IV fentanyl with some Zofran to prevent nausea. Reevaluation(s) Time of Reevaluation #1: 15:27 Reevaluation #1: Patient requesting more pain meds, will re-dose the fentanyl. Her sodium is 125. She does run hyponatremic in our records but not this low. Will give a small bolus of normal saline. We are waiting reading of her CT scans. Time of Reevaluation #2: 16:31 Reevaluation #2: Have reviewed patient CTs. There is definitely constipation. She has the significant but stable T12 compression fracture. Reviewed with her that sometimes there can be further degeneration that we do not always bead picker initially on the imaging. In any event, things appear stable. The fentanyl helped some but not greatly. Discussed the hyponatremia, she does take sodium tablets for this. Her level would qualify her to come into the hospital but she overall seems quite stable and not affected at this time. She does already have sodium tablets. She really does want to go home. We discussed that pain management really next step would be things that could be sedating and increase her risk for falls. She feels comfortable and safe going home. Her daughter will be back shortly to pick her up. We discussed reinitiating gabapentin at 100 mg, she states she tolerated this without complication before. I think avoidance of narcotics is probably safest for her given that she has the side effect of nausea with them. I do feel more comfortable initiating something that she states she has already tolerated. Have offered her hospitalization but she is declining at this time. Her hyponatremia does not seem to be causing any changes in her baseline status from what I can see or what she is describing to me. We will insure patient is ambulating safely prior to discharge. Time of Reevaluation #3: 16:58 Reevaluation #3: Patient's daughter was concerned, she did want her mom placed in the hospital. Reviewed with patient that I had offered hospitalization, had reviewed with our hospitalist in he is willing to place her in the hospital. She would be observation but she does have hyponatremia. Discussed with her that the hospitalization offer certainly is there for her. Her daughter obviously wants her to stay, she will call her daughter back and let her know that she will be staying overnight. She wants know that is just overnight, reviewed with her that we have no idea, will have to see how things go. She understands and is in agreement for hospitalization. I had already reviewed this case with Dr. Morales, he had accepted. Vital Signs Vital signs: Initial Vital Signs Temperature 97.3 F L 12/09/23 12:39 Temperature Source Temporal Artery Scan 12/09/23 12:39 Pulse Rate 87 12/09/23 12:39 Respiratory Rate 18 12/09/23 12:39 Blood Pressure 176/67 H 12/09/23 12:39 Blood Pressure Mean 103 12/09/23 12:39 Blood Pressure Position Sitting 12/09/23 12:39 Pulse Oximetry 98 12/09/23 12:39 Oxygen Delivery Method Room Air 12/09/23 12:39 Vital Signs Temperature 97.3 F L 12/09/23 12:39 Pulse Rate 87 12/09/23 12:39 Respiratory Rate 18 12/09/23 12:39 Blood Pressure 176/67 H 12/09/23 12:39 Pulse Oximetry 98 12/09/23 12:39 Oxygen Delivery Method Room Air 12/09/23 12:39 Temperature 98.1 F 12/10/23 04:33 Pulse Rate 70 12/10/23 04:33 Respiratory Rate 20 12/10/23 04:33 Blood Pressure 132/47 L 12/10/23 04:33 Pulse Oximetry 89 12/10/23 04:33 Oxygen Delivery Method Room Air 12/10/23 04:33 Medications Administered Medications: Generic Name Dose Route Start Last Admin Trade Name Freq PRN Reason Stop Dose Admin Acetaminophen 650 mg 12/09/23 18:15 12/10/23 04:20 Acetaminophen 325 Mg Tablet PO 650 mg Q4H PRN Administration Mild Pain Gabapentin 100 mg 12/09/23 21:00 12/09/23 23:09 Gabapentin 100 Mg Capsule PO Not Given TID [facility] Ondansetron HCl 4 mg 12/09/23 19:48 12/09/23 19:59 Ondansetron 2 Mg/Ml Inj IVP 4 mg Q4H PRN Administration Nausea Oxycodone HCl 2.5 mg 12/09/23 18:15 12/09/23 18:51 Oxycodone 5 Mg Tablet PO 2.5 mg Q2H PRN Administration MODERATE PAIN Senna/Docusate Sodium 2 tab 12/09/23 21:00 12/09/23 23:09 Sennosides/Docusate Tablet PO Not Given BID CLIVE Sodium Chloride 5 ml 12/09/23 21:00 12/09/23 23:09 Sodium Chloride 0.9 % (Flush) 10 Ml Syringe IVF 5 ml BID CLIVE Administration Discontinued Medications Generic Name Dose Route Start Last Admin Trade Name Sujey PRN Reason Stop Dose Admin Bisacodyl 10 mg 12/09/23 18:15 12/09/23 18:51 Bisacodyl 10 Mg Supp.Rect RI 12/09/23 18:16 10 mg ONCE ONE Administration Fentanyl 12.5 mcg 12/09/23 13:12 12/09/23 13:45 Fentanyl 100 Mcg/2 Ml Inj IVP 12/09/23 13:13 12.5 mcg ONCE ONE Administration Fentanyl 12.5 mcg 12/09/23 15:26 12/09/23 15:58 Fentanyl 100 Mcg/2 Ml Inj IVP 12/09/23 15:27 12.5 mcg ONCE ONE Administration Gabapentin 100 mg 12/09/23 16:32 12/09/23 16:41 Gabapentin 100 Mg Capsule PO 12/09/23 16:33 100 mg ONCE ONE Administration Sodium Chloride 250 mls @ 250 mls/hr 12/09/23 15:28 12/09/23 16:45 0.9 % Sodium Chloride 250 Ml IV 12/09/23 16:27 Infused .Q1H ONE Infusion Magnesium Hydroxide 30 ml 12/09/23 18:15 12/09/23 18:54 Magnesium Hydroxide 30 Ml Oral.Susp PO 12/09/23 18:16 30 ml ONCE ONE Administration Ondansetron HCl 4 mg 12/09/23 13:12 12/09/23 13:46 Ondansetron 2 Mg/Ml Inj IVP 12/09/23 13:13 4 mg ONCE ONE Administration Sodium Chloride 1 gm 12/09/23 18:21 12/09/23 18:54 Sodium Chloride 1 Gm Tablet PO 12/09/23 18:22 Not Given ONCE ONE MDM - Abdominal Pain Lab Data Attestation: I reviewed the patient's lab results. Labs: Lab Results 07/19/24 07/19/24 Range/Units 13:29 13:35 WBC 10.31 (4.50-11.00) K/uL RBC 3.10 L (4.00-5.20) m/uL Hgb 9.7 L (12.0-16.0) gm/dL Hct 29.9 L (33.0-51.0) % MCV 97 (80-100) fL MCH 31 (26-34) pg MCHC 32 (32-36) gm/dL RDW Coeff of [place] 13.0 (11.5-15.5) % Plt Count 360 (140-440) K/uL Neut % (Auto) 82.3 H (42.0-72.0) % Lymph % (Auto) 8.5 L (20-44) % [place] % (Auto) 7.5 (0.0-11.0) % Eos % (Auto) 0.8 (0.0-7.0) % Baso % (Auto) 0.5 (0.0-3.0) % Neut # (Auto) 8.50 H (1.7-7.0) K/uL Lymph # (Auto) 0.90 (0.90-2.90) K/uL [place] # (Auto) 0.80 (0.00-0.90) K/UL Eos # (Auto) 0.08 (0.00-0.50) K/uL Baso # (Auto) 0.05 (0.00-0.30) K/uL Abs Immat Gran (auto) 0.04 (0.00-0.30) K/uL Imm/Tot Granulo (auto) 0.4 % Sodium 125 L (135-149) mmol/L Potassium 4.2 (3.6-5.1) mmol/L Chloride 88 L (96-114) mmol/L Carbon Dioxide 30 (20-32) mmol/L Anion Gap 7 (7-15) mEq/L BUN 14 (7-30) mg/dL Creatinine 0.5 (0.5-1.5) mg/dL Estimated Creat Clear 29.99 Estimated GFR 92 ml/min Glucose 94 (60-115) mg/dL Lactate 0.8 (0.5-1.9) mmol/L Calcium 10.5 (8.4-10.6) mg/dL Total Bilirubin 0.5 (0.1-1.5) mg/dL AST 43 H (12-35) U/L ALT 24 (4-35) U/L Alkaline Phosphatase 158 H (40-150) U/L C-Reactive Protein 1.3 H (0.5-1.0) mg/dL Total Protein 8.4 H (6.0-8.3) g/dL Albumin 4.7 (3.3-5.0) g/dL Urine Color Yellow (Yellow) Urine Appearance Clear (Clear) Urine pH 7.0 (5.0-8.5) Ur Specific [place] 1.015 (1.000-1.030) Urine Protein Negative (Negative) Urine Glucose (UA) Negative (Negative) Urine Ketones Negative (Negative) Urine Blood Negative (Negative) Urine Nitrite Negative (Negative) Urine Bilirubin Negative (Negative) Urine Urobilinogen 0.2 (0.2-1.0) Ur Leukocyte Esterase 1+ A (Negative) Urine RBC 0-2 (0-2) Urine WBC 5-10 A (0-5) Ur Squamous Epith Cells Few (None-Few) Urine Bacteria None (None) POC Creatinine 0.6 (0.6-1.3) mg/dl Imaging Data CT scan - abdomen: Attestation: I have reviewed the pertinent imaging results. Radiologist's impression: Patient: JAILENE MEDINA Facility:?[facility] Patient ID:?[id number] Site Patient ID:?[id number] Site :?[id number] Study:?CT-Abdomen/Pelvis W/ 49CC ISOVUE 370-12/09/2023 3:16:42 PM Ordering Physician:Carolyn Escamilla Final Report: INDICATION: Abdominal pain, not otherwise described. Constipation. COMPARISON: None available. TECHNIQUE: CT of the abdomen and pelvis with 49 cc of Isovue 370 intravenous contrast. Please note that all CT scans at this facility use dose modulation, iterative reconstruction, and/or weight-based dosing when appropriate to reduce radiation dose to as low as reasonably achievable. FINDINGS: ABDOMEN Liver: Normal hepatic attenuation. No suspicious focal hepatic lesion. No intrahepatic biliary ductal dilatation. Patent portal and hepatic veins. Gallbladder: Cholecystectomy. Prominent extrahepatic bile duct is consistent with a reservoir effect. Pancreas: Normal pancreatic attenuation. No focal lesion. Normal duct caliber. No peripancreatic inflammatory changes. Spleen: Normal splenic attenuation. No suspicious focal lesion. Patent splenic artery and vein. Adrenal Glands: Symmetrical adrenal glands. No focal lesion of significance. Kidneys: Normal bilateral renal attenuation. Bilateral uncomplicated renal cortical cysts are noted, the largest arising exophytically from the lower pole of the left kidney measuring 4.8 cm in greatest dimension (6; 37). No suspicious focal lesion. No obstructing nephrolith or dilatation of the intrarenal collecting systems. Patent renal arteries and veins. Nondilated upper urinary tracts. Gastrointestinal tract: Nondilated bowel. Moderate colonic fecal burden. No inflammatory changes. Vascular: Chronic severe thoracoabdominal aortoiliac atherosclerotic mural calcification. Abdominal aorta and its major proximal branches including the celiac, superior mesenteric, inferior mesenteric, renal, and bilateral common iliac arteries are patent. Inferior vena cava, portal and superior mesenteric veins are patent. Additional findings: No incidental adenopathy. No significant ascites, free fluid or pneumoperitoneum. PELVIS No bladder lesion is identified. No abnormal free fluid. No incidental adenopathy. SKELETON AND BODY WALL Chronic appearing severe T12 complete burst fracture with retropulsion of the posterior vertebral body into the spinal canal. No severe spinal stenosis is associated. Please correlate with the patient`s clinical history. LOWER THORAX TAVR. Severe atherosclerotic coronary artery calcification. Increased lung volumes consistent with chronic obstructive airways disease. Inferior lingular segment pleural-based band opacity consistent with nonspecific fibrosis. Partially included lower thoracic wall, lungs, pleural spaces and mediastinum are otherwise without significant incidental findings. IMPRESSION: 1. No specific imaging findings to explain abdominal pain. 2. Nonspecific moderate colonic fecal loading consistent with the history of constipation. No evidence of stercoral colitis. 3. Incidental findings described above including a chronic severe burst fracture of T12 with retropulsion of the posterior vertebral body into the spinal canal without associated significant spinal canal stenosis. Please note that all CT scans at this facility use dose modulation, iterative reconstruction, and/or weight-based dosing when appropriate to reduce radiation dose to as low as reasonably achievable. Dictated by Terrance Sosa MD @ 12/09/2023 3:53:53 PM (Electronic Signature) CT- Other: Attestation: I have reviewed the pertinent imaging results. Radiologist's impression: Patient: JAILENE MEDINA Facility:[facility] Patient ID:?[id number] Site Patient ID:?[id number]. Site :?[id number] Study:?CT-Spine Lumbar W/O-12/09/2023 3:18:00 PM Ordering Physician:Carolyn Escamilla Final Report: Indication: Increasing lower back pain. History of lower back compression fracture. Technique: Noncontrast axial CT of the lumbar spine with coronal and sagittal reformats. Comparison: CT chest abdomen pelvis report 05/20/2022, MRI thoracic spine report 10/08/2021, CT thoracic spine 05/23/2021. Findings: Redemonstration of the chronic T12 superior endplate compression deformity, with severe vertebral height loss, and approximately 6 mm cortical retropulsion of the posterosuperior corner. On the 05/20/2022 CTA report, it was estimated that there was 85 percent vertebral height loss at this level, favored stable over the interval. Accentuated lumbar lordosis. Grade 1 anterolisthesis at L2-3. Remaining vertebral body heights are maintained. No acute osseous abnormality identified. Aortoiliac atherosclerotic plaquing. Bilateral renal cysts, left larger than right. Included views of the SI joints demonstrate partial bony ankylosis on the left. T11-T12: Cortical retropulsion, mild facet arthropathy. No neural foraminal stenosis. Mild-moderate spinal canal narrowing. T12-L1, L1-L2: No neural foraminal or spinal canal stenosis. L2-L3: Mild diffuse disc bulge. No neural foraminal or spinal canal stenosis. L3-L4: Mild diffuse disc bulge, mild facet arthropathy. No neural foraminal or spinal canal stenosis. L4-L5: Mild diffuse disc bulge, mild facet arthropathy. Mild bilateral neural foraminal narrowing, left worse than right. No spinal canal stenosis. L5-S1: Shallow posterior disc bulge, mild facet arthropathy. No neural foraminal or spinal canal stenosis. Impression: 1. Chronic T12 superior endplate compression deformity with severe vertebral height loss and 6 mm cortical retropulsion, favored stable relative to the 05/20/2022 CTA report. 2. No acute osseous abnormality. Scattered spondylosis as detailed. No high-grade neural foraminal or spinal canal stenosis. Please note that all CT scans at this facility use dose modulation, iterative reconstruction, and/or weight-based dosing when appropriate to reduce radiation dose to as low as reasonably achievable. Dictated by Sakina Victoria MD @ 12/09/2023 3:44:22 PM (Electronic Signature) Discharge Plan Discharge Clinical Impression: Constipation, Acute back pain, Hyponatremia Patient Disposition: Admitted As Observation Condition: Stable Activity Level: Activity as Tolerated
--- NOTE | 2023-12-09 13:12 | CRLHL7_ITS ---
For Patients: As a result of the Century Cures Act, medical imaging exams and procedure reports are released immediately into your electronic medical record. You may view this report before your referring provider. If you have questions, please contact your health care provider. Indication: Increasing lower back pain. History of lower back compression fracture. Technique: Noncontrast axial CT of the lumbar spine with coronal and sagittal reformats. Comparison: CT chest abdomen pelvis report 05/20/2022, MRI thoracic spine report 10/08/2021, CT thoracic spine 05/23/2021. Findings: Redemonstration of the chronic T12 superior endplate compression deformity, with severe vertebral height loss, and approximately 6 mm cortical retropulsion of the posterosuperior corner. On the 05/20/2022 CTA report, it was estimated that there was 85 percent vertebral height loss at this level, favored stable over the interval. Accentuated lumbar lordosis. Grade 1 anterolisthesis at L2-3. Remaining vertebral body heights are maintained. No acute osseous abnormality identified. Aortoiliac atherosclerotic plaquing. Bilateral renal cysts, left larger than right. Included views of the SI joints demonstrate partial bony ankylosis on the left. T11-T12: Cortical retropulsion, mild facet arthropathy. No neural foraminal stenosis. Mild-moderate spinal canal narrowing. T12-L1, L1-L2: No neural foraminal or spinal canal stenosis. L2-L3: Mild diffuse disc bulge. No neural foraminal or spinal canal stenosis. L3-L4: Mild diffuse disc bulge, mild facet arthropathy. No neural foraminal or spinal canal stenosis. L4-L5: Mild diffuse disc bulge, mild facet arthropathy. Mild bilateral neural foraminal narrowing, left worse than right. No spinal canal stenosis. L5-S1: Shallow posterior disc bulge, mild facet arthropathy. No neural foraminal or spinal canal stenosis. Impression: 1. Chronic T12 superior endplate compression deformity with severe vertebral height loss and 6 mm cortical retropulsion, favored stable relative to the 05/20/2022 CTA report. 2. No acute osseous abnormality. Scattered spondylosis as detailed. No high-grade neural foraminal or spinal canal stenosis. Please note that all CT scans at this facility use dose modulation, iterative reconstruction, and/or weight-based dosing when appropriate to reduce radiation dose to as low as reasonably achievable. Dictated by Sakina Victoria MD @ 12/09/2023 3:44:22 PM (Electronically Signed)
--- NOTE | 2023-12-09 13:12 | CRLHL7_ITS ---
For Patients: As a result of the 21st Century Cures Act, medical imaging exams and procedure reports are released immediately into your electronic medical record. You may view this report before your referring provider. If you have questions, please contact your health care provider. INDICATION: Abdominal pain, not otherwise described. Constipation. COMPARISON: None available. TECHNIQUE: CT of the abdomen and pelvis with 49 cc of Isovue 370 intravenous contrast. Please note that all CT scans at this facility use dose modulation, iterative reconstruction, and/or weight-based dosing when appropriate to reduce radiation dose to as low as reasonably achievable. FINDINGS: ABDOMEN Liver: Normal hepatic attenuation. No suspicious focal hepatic lesion. No intrahepatic biliary ductal dilatation. Patent portal and hepatic veins. Gallbladder: Cholecystectomy. Prominent extrahepatic bile duct is consistent with a reservoir effect. Pancreas: Normal pancreatic attenuation. No focal lesion. Normal duct caliber. No peripancreatic inflammatory changes. Spleen: Normal splenic attenuation. No suspicious focal lesion. Patent splenic artery and vein. Adrenal Glands: Symmetrical adrenal glands. No focal lesion of significance. Kidneys: Normal bilateral renal attenuation. Bilateral uncomplicated renal cortical cysts are noted, the largest arising exophytically from the lower pole of the left kidney measuring 4.8 cm in greatest dimension (6; 37). No suspicious focal lesion. No obstructing nephrolith or dilatation of the intrarenal collecting systems. Patent renal arteries and veins. Nondilated upper urinary tracts. Gastrointestinal tract: Nondilated bowel. Moderate colonic fecal burden. No inflammatory changes. Vascular: Chronic severe thoracoabdominal aortoiliac atherosclerotic mural calcification. Abdominal aorta and its major proximal branches including the celiac, superior mesenteric, inferior mesenteric, renal, and bilateral common iliac arteries are patent. Inferior vena cava, portal and superior mesenteric veins are patent. Additional findings: No incidental adenopathy. No significant ascites, free fluid or pneumoperitoneum. PELVIS No bladder lesion is identified. No abnormal free fluid. No incidental adenopathy. SKELETON AND BODY WALL Chronic appearing severe T12 complete burst fracture with retropulsion of the posterior vertebral body into the spinal canal. No severe spinal stenosis is associated. Please correlate with the patient`s clinical history. LOWER THORAX TAVR. Severe atherosclerotic coronary artery calcification. Increased lung volumes consistent with chronic obstructive airways disease. Inferior lingular segment pleural-based band opacity consistent with nonspecific fibrosis. Partially included lower thoracic wall, lungs, pleural spaces and mediastinum are otherwise without significant incidental findings. IMPRESSION: 1. No specific imaging findings to explain abdominal pain. 2. Nonspecific moderate colonic fecal loading consistent with the history of constipation. No evidence of stercoral colitis. 3. Incidental findings described above including a chronic severe burst fracture of T12 with retropulsion of the posterior vertebral body into the spinal canal without associated significant spinal canal stenosis. Please note that all CT scans at this facility use dose modulation, iterative reconstruction, and/or weight-based dosing when appropriate to reduce radiation dose to as low as reasonably achievable. Dictated by Terrance Sosa MD @ 12/09/2023 3:53:53 PM (Electronically Signed)
[2023-12-09 13:43] LABS: Lactate* 0.8 mmol/L (0.5-1.9)
[2023-12-09] MEDS: fentaNYL 100 MCG/2 ML inj 12.5 MCG IVP ×2 (13:45→15:58)
[2023-12-09] MEDS: ONDANSETRON 2 MG/ML inj 4 MG IVP ×2 (13:46→19:59)
[2023-12-09 13:48] LABS: Basophils Absolute Auto 0.05 K/uL (0.00-0.30); Basophils Percent Auto 0.5 % (0.0-3.0); Eosinophils Absolute Auto 0.08 K/uL (0.00-0.50); Eosinophils Percent Auto 0.8 % (0.0-7.0); Hematocrit 29.9 % (33.0-51.0); Hemoglobin* 9.7 gm/dL (12.0-16.0); Immature Granulocytes Abs Auto 0.04 K/uL (0.00-0.30); Immature Granulocytes Pct Auto 0.4 %; Lymphocytes Percent Auto 8.5 % (20-44); Mean Corpuscular HGB Conc 32 gm/dL (32-36); Mean Corpuscular Hemoglobin 31 pg (26-34); Mean Corpuscular Volume 97 fL (80-100); Monocytes Percent Auto 7.5 % (0.0-11.0); Neutrophils Percent Auto 82.3 % (42.0-72.0); Platelet Count* 360 K/uL (140-440); White Blood Count* 10.31 K/uL (4.50-11.00)
[2023-12-09 14:02] LABS: Creatinine, Point-of-Care* 0.6 mg/dl (0.6-1.3); Slide Review Reflex No
[2023-12-09 14:04] LABS: Chloride* 88 mmol/L (96-114)
[2023-12-09 14:05] LABS: Albumin* 4.7 g/dL (3.3-5.0); Potassium* 4.2 mmol/L (3.6-5.1); Sodium* 125 mmol/L (135-149)
[2023-12-09 14:08] LABS: Alanine Aminotransferase* 24 U/L (4-35); Alkaline Phosphatase* 158 U/L (40-150); Anion Gap 7 mEq/L (7-15); Aspartate Amino Transferase* 43 U/L (12-35); Bilirubin Total* 0.5 mg/dL (0.1-1.5); Blood Urea Nitrogen* 14 mg/dL (7-30); Carbon Dioxide* 30 mmol/L (20-32); Creatinine* 0.5 mg/dL (0.5-1.5); Est. Creatinine Clearance* 29.99; Estimated Glomerular Filt Rate 92 ml/min; Glucose* 94 mg/dL (60-115); Total Protein* 8.4 g/dL (6.0-8.3)
[2023-12-09 14:09] LABS: Calcium* 10.5 mg/dL (8.4-10.6)
[2023-12-09 14:12] LABS: C Reactive Protein* 1.3 mg/dL (0.5-1.0)
[2023-12-09 14:37] LABS: Appearance Urine Clear (Clear); Bilirubin Urine Negative (Negative); Blood Urine Negative (Negative); Color Urine Yellow (Yellow); Glucose Urine Negative (Negative); Ketones Urine Negative (Negative); Leukocyte Esterase Urine 1+ (Negative); Nitrite Urine Negative (Negative); Protein Urine Negative (Negative); RBC Urine 0-2 (0-2); Specific Gravity Urine 1.015 (1.000-1.030); Squamous Epithelial Cell Urine Few (None-Few); Urobilinogen Urine 0.2 (0.2-1.0)
[2023-12-09] MEDS: 0.9 % SODIUM CHLORIDE 250 ml 250 ML IV (15:53)
[2023-12-09] MEDS: GABAPENTIN 100 MG CAPSULE PO (16:41)
[2023-12-09] MEDS: bisacodyL 10 MG SUPP.RECT PR (18:51)
[2023-12-09] MEDS: OXYCODONE 5 MG TABLET 2.5 MG PO (18:51)
[2023-12-09] MEDS: MAGNESIUM HYDROXIDE 30 ML ORAL.SUSP PO (18:54)
[2023-12-09] MEDS: SODIUM CHLORIDE 0.9 % (FLUSH) 10 ML SYRINGE 5 ML IVF (23:09)
[2023-12-09] MEDS: ACETAMINOPHEN 325 MG TABLET 650 MG PO (23:34)
--- NOTE | 2023-12-09 23:34 | P.IMHP_ITS ---
Hospitalist- H&P: HPI History of Present Illness Date Seen: 12/09/23 Chief complaint: back and abdominal pain Narrative: Astrid Fields is a 83 year old female admitted with acute on chronic back pain and constipation. Patient has known osteoporosis and had a severe T12 compression fracture a few years ago. 2 days ago she had marked increase in her back pain at about the T12 level. There was no new injury. She did live a heavy suitcase on Tuesday but was not aware of any injury at that time. She has no bowel or bladder incontinence. No pain shooting into her legs or new numbness or weakness in her legs. She also notes that she has recently been having increasing low abdominal pain and is been struggling to have a bowel movement. She had a small hard stool couple days ago. She does have a history of chronic constipation. She has been taking psyllium every other day alternating with MiraLax but without good results. She is not on any chronic opioids and she poorly tolerates them due to nausea. She reports a chronically poor appetite which has been worse recently. She has not had any vomiting. 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 She does not have diabetes. Along with this she has poor balance. She has never been prescribed a walker but uses her 's walker sometimes in the middle of the night when she is up to the bathroom. His walker poorly fits her. She has chronic hyponatremia and is on sodium tablets for this. Review of Systems Narrative: Complete review of systems is unremarkable except as noted above. She specifically denies shortness of breath, chest pain, fever, chills. No urinary symptoms. [facility] Medical History (Updated 12/09/23 @ 23:49 by Andreas Morales MD) Stroke ?I63.9 - Cerebral infarction, unspecified (ICD-10) H/O echocardiogram ?Z92.89 - Personal history of other medical treatment (ICD-10) Chronic hyponatremia ?E87.1 - Hypo-osmolality and hyponatremia (ICD-10) Cachexia ?R64 - Cachexia (ICD-10) Iron deficiency anemia ?D50.9 - Iron deficiency anemia, unspecified (ICD-10) Chronic superficial gastritis without bleeding ?K29.30 - Chronic superficial gastritis without bleeding (ICD-10) Osteoporosis ?M81.0 - Age-related osteoporosis without current pathological fracture (ICD- 10) GERD (gastroesophageal reflux disease) ?K21.9 - Gastro-esophageal reflux disease without esophagitis (ICD-10) Colon polyp ?K63.5 - Polyp of colon (ICD-10) Severe aortic stenosis ?I35.0 - Nonrheumatic aortic (valve) stenosis (ICD-10) Surgical History H/O rectocele repair (08/24/10) ?Z98.890 - Other specified postprocedural states (ICD-10) H/O rectocele repair (08/25/09) ?Z98.890 - Other specified postprocedural states (ICD-10) Hx laparoscopic cholecystectomy (08/28/12) ?Z90.49 - Acquired absence of other specified parts of digestive tract (ICD- 10) H/O tubal ligation (~1974) ?Z98.51 - Tubal ligation status (ICD-10) Hx of esophagogastroduodenoscopy (02/12/16) ?Z98.890 - Other specified postprocedural states (ICD-10) Hx of colonoscopy ?Z98.890 - Other specified postprocedural states (ICD-10) History of arthroscopy of left shoulder (~2008) ?Z98.890 - Other specified postprocedural states (ICD-10) Family History Sister Breast cancer Father Cancer Mother Lymphoma Social History (Updated 12/09/23 @ 23:44 by Andreas Morales MD) Narrative: Living independently. 2 years ago. He had dementia with behavioral disturbances and she says she is still not over his decline and . Smoked, 20 pack years, quit 50 years ago. Nonsmoker.. DNR. She reports that she was quite unhappy with skilled nursing placement when she had her T12 compression fracture about 3 years ago. She said she would rather than return to a skilled nursing. She is more afraid of disability than . What is your current living situation?: I presently have a place to live Problems where you live: no known problems Problems where you live details: n/a In the past 12 months, utilities in danger of being shut off: no In past 12 months, lack of transportation kept you from medical appts, meetings, work, or getting things needed for daily living: no In the past 12 mos, have been you worried that your food would run out before you had money to buy more?: never true In the past 12 mos, the food you bought just didn't last and you didn't have money to buy more?: never true Highest level of school completed/degree received: high school graduate Smoking Status: Former smoker Do you use any of these nicotine containing products: None How often do you have a drink containing alcohol: never How often do you have six or more drinks on one occasion: Never AUDIT-C Alcohol total score: 0 Non-prescribed substance use: denies use Caffeine: Yes (2 cups of coffee) How often does anyone, including family, friends and others, physically hurt you : never How often does anyone, including family, friends and others, insult or talk down to you: never How often does anyone, including family, friends and others, threaten you with harm: never How often does anyone, including family, friends and others, scream or curse at you: never service: No Meds Home Medications and Allergies Home Medications ?Medication ?Instructions ?Recorded ?Confirmed ?Type aspirin 81 mg capsule 81 mg PO DAILY 07/11/22 12/09/23 History calcium carbonate 600 mg-vitamin 1 tab PO DAILY 07/11/22 12/09/23 History D3 10 mcg (400 unit) tablet (Calcium 600 + D(3)) estradiol 0.01% (0.1 mg/gram) 1 appful vaginal DAILY PRN vaginal 07/11/22 12/09/23 History vaginal cream dryness famotidine 40 mg tablet 40 mg PO DAILY 07/11/22 12/09/23 History ferrous sulfate 325 mg (65 mg 325 mg PO DIRECTED 07/11/22 12/09/23 History iron) tablet,delayed release polyethylene glycol 3350 17 8.5 - 17 g PO DAILY PRN 07/11/22 12/09/23 History gram/dose oral powder (Miralax) sodium chloride 1 gram tablet 1,000 mg PO DAILY 07/11/22 12/09/23 History amlodipine 5 mg tablet 5 mg PO DAILY 12/09/23 12/09/23 History omeprazole 40 mg capsule,delayed 40 mg PO DAILY 12/09/23 12/09/23 History release Allergies Allergy/AdvReac Type Severity Reaction Status Date / Time latex Allergy Mild Rash Verified 12/09/23 15:12 Sulfa (Sulfonamide Allergy Mild Rash Verified 12/09/23 15:12 Antibiotics) lisinopril AdvReac Mild Cough Verified 12/09/23 15:12 Exam Narrative: Exam Narrative: She is alert and appears in no distress. She gives her own history. Speech is fluent. Eyes are normal except for bilateral cataracts. She is oriented to her circumstances. Oropharynx is normal. Neck is supple without mass or adenopathy. Respirations are clear to auscultation. She is tender in the area of the lower thoracic spine on palpation and this is the area where she reports maximal pain. No apparent trauma on inspection. Cardiovascular: S1, S2, regular rate and rhythm. Abdomen is soft with mild diffuse low abdominal tenderness. No mass. No peritonitis. External genitalia normal. Extremities with no edema. Intact peripheral pulses. She moves both lower extremities with relatively equal strength. Const: Vital Signs, click to edit/add: Vital Signs - 24 hr 12/09/23 12:39 12/09/23 14:27 12/09/23 16:13 Temperature 97.3 F L Pulse Rate [Pulse Oximeter] 87 80 87 Respiratory Rate 18 Blood Pressure [Le ft Arm] Blood Pressure [Ri ght Upper Arm] 176/67 H Pulse Oximetry 98 93 92 Oxygen Delivery Me thod Room Air Room Air Room Air 12/09/23 19:20 12/09/23 22:56 12/09/23 23:05 Temperature 97.4 F L 97.5 F L Pulse Rate [Pulse Oximeter] 71 73 Respiratory Rate 18 24 Blood Pressure [Le ft Arm] 145/58 H 119/44 L Blood Pressure [Ri ght Upper Arm] Pulse Oximetry 92 92 92 Oxygen Delivery Me thod Room Air Room Air Room Air Documenting provider has reviewed patient's vital signs: yes Hospitalist - H&P: Result Labs Labs: Short CBC 12/09/23 Range/Units 13:35 WBC 10.31 (4.50-11.00) K/uL Hgb 9.7 L (12.0-16.0) gm/dL Hct 29.9 L (33.0-51.0) % Plt Count 360 (140-440) K/uL BMP 12/09/23 13:35 Sodium 125 L Potassium 4.2 Chloride 88 L Carbon Dioxide 30 BUN 14 Creatinine 0.5 Glucose 94 Calcium 10.5 Liver Function 12/09/23 Range/Units 13:35 Total Bilirubin 0.5 (0.1-1.5) mg/dL AST 43 H (12-35) U/L ALT 24 (4-35) U/L Alkaline Phosphatase 158 H (40-150) U/L Albumin 4.7 (3.3-5.0) g/dL Urine 12/09/23 Range/Units 13:29 Urine Color Yellow (Yellow) Urine Appearance Clear (Clear) Urine pH 7.0 (5.0-8.5) Ur Specific [place] 1.015 (1.000-1.030) Urine Protein Negative (Negative) Urine Glucose (UA) Negative (Negative) Imaging CT scan - abdomen: Radiologist's impression: INDICATION: Abdominal pain, not otherwise described. Constipation. COMPARISON: None available. TECHNIQUE: CT of the abdomen and pelvis with 49 cc of Isovue 370 intravenous contrast. Please note that all CT scans at this facility use dose modulation, iterative reconstruction, and/or weight-based dosing when appropriate to reduce radiation dose to as low as reasonably achievable. FINDINGS: ABDOMEN Liver: Normal hepatic attenuation. No suspicious focal hepatic lesion. No intrahepatic biliary ductal dilatation. Patent portal and hepatic veins. Gallbladder: Cholecystectomy. Prominent extrahepatic bile duct is consistent with a reservoir effect. Pancreas: Normal pancreatic attenuation. No focal lesion. Normal duct caliber. No peripancreatic inflammatory changes. Spleen: Normal splenic attenuation. No suspicious focal lesion. Patent splenic artery and vein. Adrenal Glands: Symmetrical adrenal glands. No focal lesion of significance. Kidneys: Normal bilateral renal attenuation. Bilateral uncomplicated renal cortical cysts are noted, the largest arising exophytically from the lower pole of the left kidney measuring 4.8 cm in greatest dimension (6; 37). No suspicious focal lesion. No obstructing nephrolith or dilatation of the intrarenal collecting systems. Patent renal arteries and veins. Nondilated upper urinary tracts. Gastrointestinal tract: Nondilated bowel. Moderate colonic fecal burden. No inflammatory changes. Vascular: Chronic severe thoracoabdominal aortoiliac atherosclerotic mural calcification. Abdominal aorta and its major proximal branches including the celiac, superior mesenteric, inferior mesenteric, renal, and bilateral common iliac arteries are patent. Inferior vena cava, portal and superior mesenteric veins are patent. Additional findings: No incidental adenopathy. No significant ascites, free fluid or pneumoperitoneum. PELVIS No bladder lesion is identified. No abnormal free fluid. No incidental adenopathy. SKELETON AND BODY WALL Chronic appearing severe T12 complete burst fracture with retropulsion of the posterior vertebral body into the spinal canal. No severe spinal stenosis is associated. Please correlate with the patient`s clinical history. LOWER THORAX TAVR. Severe atherosclerotic coronary artery calcification. Increased lung volumes consistent with chronic obstructive airways disease. Inferior lingular segment pleural-based band opacity consistent with nonspecific fibrosis. Partially included lower thoracic wall, lungs, pleural spaces and mediastinum are otherwise without significant incidental findings. IMPRESSION: 1. No specific imaging findings to explain abdominal pain. 2. Nonspecific moderate colonic fecal loading consistent with the history of constipation. No evidence of stercoral colitis. 3. Incidental findings described above including a chronic severe burst fracture of T12 with retropulsion of the posterior vertebral body into the spinal canal without associated significant spinal canal sten CT- Other: Radiologist's impression: CT lumbar spine: Indication: Increasing lower back pain. History of lower back compression fracture. Technique: Noncontrast axial CT of the lumbar spine with coronal and sagittal reformats. Comparison: CT chest abdomen pelvis report 05/20/2022, MRI thoracic spine report 10/08/2021, CT thoracic spine 05/23/2021. Findings: Redemonstration of the chronic T12 superior endplate compression deformity, with severe vertebral height loss, and approximately 6 mm cortical retropulsion of the posterosuperior corner. On the 05/20/2022 CTA report, it was estimated that there was 85 percent vertebral height loss at this level, favored stable over the interval. Accentuated lumbar lordosis. Grade 1 anterolisthesis at L2-3. Remaining vertebral body heights are maintained. No acute osseous abnormality identified. Aortoiliac atherosclerotic plaquing. Bilateral renal cysts, left larger than right. Included views of the SI joints demonstrate partial bony ankylosis on the left. T11-T12: Cortical retropulsion, mild facet arthropathy. No neural foraminal stenosis. Mild-moderate spinal canal narrowing. T12-L1, L1-L2: No neural foraminal or spinal canal stenosis. L2-L3: Mild diffuse disc bulge. No neural foraminal or spinal canal stenosis. L3-L4: Mild diffuse disc bulge, mild facet arthropathy. No neural foraminal or spinal canal stenosis. L4-L5: Mild diffuse disc bulge, mild facet arthropathy. Mild bilateral neural foraminal narrowing, left worse than right. No spinal canal stenosis. L5-S1: Shallow posterior disc bulge, mild facet arthropathy. No neural foraminal or spinal canal stenosis. Impression: 1. Chronic T12 superior endplate compression deformity with severe vertebral height loss and 6 mm cortical retropulsion, favored stable relative to the 05/20/2022 CTA report. 2. No acute osseous abnormality. Scattered spondylosis as detailed. No high-grade neural foraminal or spinal canal stenosis. Assessment and Plan Assessment and plan (1) Hyponatremia: Problem comment: Acute on chronic. Increase sodium tablets. Restrict fluid intake. Status: Acute (2) Acute back pain: Problem comment: Imaging does not show an acute new fracture but severe stable old T12 fracture. PT to evaluate Status: Acute (3) Constipation: Problem comment: Acute on chronic. Acute on chronic laxative for treatment Status: Acute (4) Osteoporosis: Problem comment: Bone density 2016. Since then has had fragility fractures. On calcium and vitamin-D. She was apparently treated with Fosamax but is not continuing it. She was apparently treated with intravenous bisphosphonate? I recommend reconsidering this. She is interested in minimizing medical interventions but I indicated that it may be worth considering as a way of avoiding disability without adding too many side effects or toxicities. Status: Acute Plan She admitted the hospital for further evaluation of pain and disability related to her fractures and to address her hyponatremia. She is poorly tolerate opioids in the past so will go cautiously with this. Plan of care discussed with the patient she is agreeable with this. Total Time Spent Total Time Spent: Total time spent today is 75 minutes in evaluation management.
[2023-12-10] MEDS: ACETAMINOPHEN 325 MG TABLET 650 MG PO ×3 (04:20→20:44)
[2023-12-10 04:33] VITALS: BP 132/47; PULSE 70; RESP 20; TEMP 36.7; O2SAT 89
--- NOTE | 2023-12-10 06:26 | PC.NURSE ---
End of shift [id number] ? Pt alert, oriented, cooperative. Pt continent of bladder, unable to have BM during shift. Pt reported pain in back as 7-8/10 with an increase in pain with ambulation. Narcotic pain medication noted to cause nausea, anti-nausea medication given per JUL. RN offered non-narcotic pain medication and an ice pack, pt reported increased comfort and ability to sleep. Pt up with standby assistance and walker/gait belt. Repeatedly asked RN ?how she will get back home? and ?how will she function back at home? in reference to her increased pain. RN provided emotional support with pt verbalizing improved emotional status.?
[2023-12-10 07:00] VITALS: BP 134/90; PULSE 73; RESP 20; TEMP 36.6; O2SAT 91
[2023-12-10 07:23] LABS: Basophils Absolute Auto 0.05 K/uL (0.00-0.30); Basophils Percent Auto 0.7 % (0.0-3.0); Eosinophils Absolute Auto 0.12 K/uL (0.00-0.50); Eosinophils Percent Auto 1.6 % (0.0-7.0); Hematocrit 29.3 % (33.0-51.0); Hemoglobin* 9.4 gm/dL (12.0-16.0); Immature Granulocytes Abs Auto 0.03 K/uL (0.00-0.30); Immature Granulocytes Pct Auto 0.4 %; Lymphocytes Percent Auto 12.8 % (20-44); Mean Corpuscular HGB Conc 32 gm/dL (32-36); Mean Corpuscular Hemoglobin 31 pg (26-34); Mean Corpuscular Volume 98 fL (80-100); Monocytes Percent Auto 12.8 % (0.0-11.0); Neutrophils Percent Auto 71.7 % (42.0-72.0); Platelet Count* 288 K/uL (140-440); RDW Coefficient of Variation % 13.1 % (11.5-15.5); White Blood Count* 7.66 K/uL (4.50-11.00)
[2023-12-10 07:28] LABS: Slide Review Reflex No
[2023-12-10 07:32] LABS: Chloride* 92 mmol/L (96-114); Sodium* 126 mmol/L (135-149)
[2023-12-10 07:33] LABS: Potassium* 4.7 mmol/L (3.6-5.1)
[2023-12-10 07:35] LABS: Creatinine* 0.5 mg/dL (0.5-1.5); Est. Creatinine Clearance* 28.37; Estimated Glomerular Filt Rate 92 ml/min
[2023-12-10 07:36] LABS: Anion Gap 5 mEq/L (7-15); Blood Urea Nitrogen* 14 mg/dL (7-30); Calcium* 9.9 mg/dL (8.4-10.6); Carbon Dioxide* 29 mmol/L (20-32); Glucose* 75 mg/dL (60-115)
[2023-12-10] MEDS: SENNOSIDES/DOCUSATE TABLET 2 TAB PO ×2 (08:51→20:44)
[2023-12-10] MEDS: OMEPRAZOLE 20 MG CAPSULE DR 40 MG PO (08:51)
[2023-12-10] MEDS: GABAPENTIN 100 MG CAPSULE PO ×3 (08:52→20:45)
[2023-12-10] MEDS: ASPIRIN 81 MG TABLET EC PO (08:52)
[2023-12-10] MEDS: polyethylene glycoL 3350 17 GM PACK PO (09:04)
[2023-12-10] MEDS: PSYLLIUM HUSK (WITH SUGAR) 12 GM PACKET PO (09:04)
[2023-12-10] MEDS: AMLODIPINE 5 MG TABLET PO (09:04)
[2023-12-10] MEDS: MAGNESIUM CITRATE 300 ML SOLUTION PO (09:10)
[2023-12-10] MEDS: SODIUM CHLORIDE 1 GM TABLET PO ×3 (09:10→18:45)
[2023-12-10] MEDS: OXYCODONE 5 MG TABLET 2.5 MG PO (09:23)
[2023-12-10] MEDS: hydrOXYzine pamoate 25 MG CAPSULE PO (09:23)
[2023-12-10 11:00] VITALS: PULSE 81; RESP 20; O2SAT 90
[2023-12-10 15:00] VITALS: BP 125/65; PULSE 69; PULSE 80; RESP 20; TEMP 36.6; O2SAT 90
[2023-12-10] MEDS: bisacodyL 10 MG SUPP.RECT PR (15:52)
--- NOTE | 2023-12-10 16:38 | PM.IMPN1 ---
Progress Note: A&P Assessment and plan (1) Hyponatremia: Problem details: Acute on chronic. Increase sodium tablets. Restrict fluid intake. Status: Acute (2) Acute back pain: Problem details: Imaging does not show an acute new fracture but severe stable old T12 fracture. PT to evaluate Status: Acute (3) Constipation: Problem details: Acute on chronic. Acute on chronic laxative for treatment Status: Acute (4) Osteoporosis: Problem details: Bone density 2016. Since then has had fragility fractures. On calcium and vitamin-D. She was apparently treated with Fosamax but is not continuing it. She was apparently treated with intravenous bisphosphonate? I recommend reconsidering this. She is interested in minimizing medical interventions but I indicated that it may be worth considering as a way of avoiding disability without adding too many side effects or toxicities. Status: Acute (5) Severe back pain: Problem details: Patient is intolerant of opioids though getting some relief with less side effects when given with hydroxyzine. Continue to optimize pain control and mobility. Patient still has goal of going home. Status: Acute Plan Continue in-hospital to address severe pain and associated disability as well as monitor for complications and treat and monitor hyponatremia. Time Spent With Patient Total time spent: Total time spent today is 40 minutes in evaluation management Subjective Date Seen: 12/10/23 Interval history: Astrid Fields is a 83 year old female admitted with acute on chronic back pain and constipation. Patient has known osteoporosis and had a severe T12 compression fracture a few years ago. 2 days ago she had marked increase in her back pain at about the T12 level. There was no new injury. She did live a heavy suitcase on Tuesday but was not aware of any injury at that time. She has no bowel or bladder incontinence. No pain shooting into her legs or new numbness or weakness in her legs. She also notes that she has recently been having increasing low abdominal pain and is been struggling to have a bowel movement. She had a small hard stool couple days ago. She does have a history of chronic constipation. She has been taking psyllium every other day alternating with MiraLax but without good results. She is not on any chronic opioids and she poorly tolerates them due to nausea. She reports a chronically poor appetite which has been worse recently. She has not had any vomiting. 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 She does not have diabetes. Along with this she has poor balance. She has never been prescribed a walker but uses her 's walker sometimes in the middle of the night when she is up to the bathroom. His walker poorly fits her. She has chronic hyponatremia and is on sodium tablets for this. December 09: Patient reports her pain might be a little better. She has received oxycodone 2.5 mg last night which made her quite nauseated. She received did with hydroxyzine today and she had less nausea and had some more relief of her pain. She has been able to eat. She has not had a bowel movement yet despite aggressive laxative therapy. No fever. No shortness of breath. She was able to get up and walk with therapy. Exam Narrative: Exam Narrative: She is alert and appears in no distress. She is oriented to her circumstances. Respirations are clear to auscultation. She continues to have tenderness in her low thoracic spine consistent with her old T12 compression fracture. That same area is quite tender today. Cardiovascular: S1, S2, regular rate and rhythm. Abdomen is soft without tenderness. Extremities without edema. She moves her lower extremities well with intact strength sensation and pulses Const: Vital Signs, click to edit/add: Vital Signs - 24 hr 12/09/23 19:20 12/09/23 22:56 12/09/23 23:05 Temperature 97.4 F L 97.5 F L Pulse Rate [Pulse Oximeter] 71 73 Respiratory Rate 18 24 24 Blood Pressure [Le ft Arm] 145/58 H 119/44 L Pulse Oximetry 92 92 [facility] 12/09/23 23:44 12/10/23 04:33 12/10/23 07:00 Temperature 98.1 F 98.1 F 97.8 F Pulse Rate [Pulse Oximeter] 74 70 73 Respiratory Rate 24 20 20 Blood Pressure [Le ft Arm] 128/46 L 132/47 L 134/90 H Pulse Oximetry 90 89 [facility] Room Air 12/10/23 07:00 12/10/23 11:00 12/10/23 15:00 Temperature Pulse Rate [Pulse Oximeter] 73 81 69 Respiratory Rate 20 20 20 Blood Pressure [Le ft Arm] Pulse Oximetry 90 [facility] 12/10/23 15:00 Temperature 98 F Pulse Rate [Pulse Oximeter] 80 Respiratory Rate 20 Blood Pressure [Le ft Arm] 125/65 Pulse Oximetry 90 Oxygen Delivery Me thod Room Air Documenting provider has reviewed patient's vital signs: yes Labs Labs: Laboratory Results - last 24 hr 12/10/23 05:46 WBC 7.66 RBC 3.00 L Hgb 9.4 L Hct 29.3 L MCV 98 MCH 31 MCHC 32 RDW Coeff of [place] 13.1 Plt Count 288 Neut % (Auto) 71.7 Lymph % (Auto) 12.8 L [place] % (Auto) 12.8 H Eos % (Auto) 1.6 Baso % (Auto) 0.7 Neut # (Auto) 5.50 Lymph # (Auto) 1.00 [place] # (Auto) 1.00 H Eos # (Auto) 0.12 Baso # (Auto) 0.05 Abs Immat Gran (auto) 0.03 Imm/Tot Granulo (auto) 0.4 Sodium 126 L Potassium 4.7 Chloride 92 L Carbon Dioxide 29 Anion Gap 5 L BUN 14 Creatinine 0.5 Estimated Creat Clear 28.37 Estimated GFR 92 Glucose 75 Calcium 9.9
[2023-12-10] MEDS: SODIUM CHLORIDE 0.9 % (FLUSH) 10 ML SYRINGE 5 ML IVF (20:45)
[2023-12-10] MEDS: ONDANSETRON 2 MG/ML inj 4 MG IVP (20:53)
[2023-12-10 22:22] VITALS: BP 126/48; PULSE 67; RESP 20; TEMP 36.6; O2SAT 89
[2023-12-10 23:11] VITALS: BP 125/39; PULSE 71; RESP 20; TEMP 36.4; O2SAT 88
--- NOTE | 2023-12-11 06:31 | PC.NURSE ---
End of shift [id number] ? Pt alert, oriented, cooperative. Pt continent of bladder, incontinent of bowels during shift due to urgency/frequency. Pt noted to have several liquid BMs during shift related to constipation relief medications given during previous shift. Barrier cream used to protect pt from moisture exposure. Pt reported pain in back as 7/10 with an increase in pain with ambulation. Pt experienced one instance of emesis during shift, anti-nausea medication given per MAR with pt reporting resolution of nausea. Pt up with standby assistance and walker/gait belt, tolerating RA and fluid restriction. ?
[2023-12-11 07:00] VITALS: BP 135/61; PULSE 91; RESP 18; TEMP 37.1; O2SAT 86
[2023-12-11 07:09] LABS: Basophils Percent Auto 0.2 % (0.0-3.0); Eosinophils Percent Auto 0.1 % (0.0-7.0); Hematocrit 30.1 % (33.0-51.0); Hemoglobin* 9.5 gm/dL (12.0-16.0); Immature Granulocytes Pct Auto 0.4 %; Lymphocytes Percent Auto 5.2 % (20-44); Mean Corpuscular HGB Conc 32 gm/dL (32-36); Mean Corpuscular Hemoglobin 31 pg (26-34); Mean Corpuscular Volume 99 fL (80-100); Monocytes Percent Auto 6.7 % (0.0-11.0); Neutrophils Percent Auto 87.4 % (42.0-72.0); Platelet Count* 330 K/uL (140-440); Red Blood Count 3.04 m/uL (4.00-5.20); White Blood Count* 16.28 K/uL (4.50-11.00)
[2023-12-11 07:11] LABS: Slide Review Reflex No
[2023-12-11 07:17] LABS: Chloride* 92 mmol/L (96-114); Potassium* 4.4 mmol/L (3.6-5.1); Sodium* 129 mmol/L (135-149)
[2023-12-11 07:20] LABS: Anion Gap 2 mEq/L (7-15); Blood Urea Nitrogen* 24 mg/dL (7-30); Calcium* 10.1 mg/dL (8.4-10.6); Carbon Dioxide* 35 mmol/L (20-32); Creatinine* 0.5 mg/dL (0.5-1.5); Est. Creatinine Clearance* 27.59; Estimated Glomerular Filt Rate 92 ml/min; Glucose* 102 mg/dL (60-115)
[2023-12-11] MEDS: SODIUM CHLORIDE 1 GM TABLET PO ×3 (07:58→18:02)
[2023-12-11 08:43] LABS: NT Pro B Type NatriureticPept* 340 pg/mL
[2023-12-11] MEDS: OMEPRAZOLE 20 MG CAPSULE DR 40 MG PO (09:18)
[2023-12-11] MEDS: AMLODIPINE 5 MG TABLET PO (09:18)
[2023-12-11] MEDS: GABAPENTIN 100 MG CAPSULE PO ×3 (09:18→20:17)
[2023-12-11] MEDS: ASPIRIN 81 MG TABLET EC PO (09:18)
[2023-12-11] MEDS: SODIUM CHLORIDE 0.9 % (FLUSH) 10 ML SYRINGE 5 ML IVF ×2 (09:19→20:18)
--- NOTE | 2023-12-11 09:20 | CRLHL7_ITS ---
For Patients: As a result of the Century Cures Act, medical imaging exams and procedure reports are released immediately into your electronic medical record. You may view this report before your referring provider. If you have questions, please contact your health care provider. INDICATION: Hypoxia COMPARISON: 05/23/2021. reference made to a prior report dated 05/20/2022. TECHNIQUE: CT pulmonary angiography with 95 cc of Isovue 370 intravenous contrast. Please note that all CT scans at this facility use dose modulation, iterative reconstruction, and/or weight-based dosing when appropriate to reduce radiation dose to as low as reasonably achievable. FINDINGS: Pulmonary Arterial Vasculature: Opacification of the pulmonary arterial tree is adequate. No intraluminal pulmonary arterial filling defect is identified to indicate a pulmonary embolism. Visualized Lower Neck: No lower cervical adenopathy. Mediastinum: Thoracic aorta and pulmonary trunk are normal in caliber. Moderate atherosclerotic coronary artery calcifications. Mild cardiomegaly. TAVR. Moderate hiatus hernia. Two adjacent oval hyperdense finding is within the lumen of the herniated stomach adjacent to 1 another (see coronal series 6; image 153) are consistent with ingested material, pills for example. There is no mediastinal lymphadenopathy. Lungs and Pleura: Increased lung volumes consistent with chronic obstructive airways disease. There are multifocal subsegmental endobronchial nodular opacities in the right upper and middle lobes ranging in size between 2 and 5 mm (series 5; images 52, 70 and 109). These findings most likely represent small mucous plugs. Bibasilar subpleural reticular opacities. Inferior lingular segment pleural-based band opacity. These findings are consistent with nonspecific fibrosis. The finding in the lingula is associated with subsegmental traction bronchiectasis also consistent with fibrosis. No significant pleural effusion. No pneumothorax. Skeleton: Chronic severe T12 compression deformity. T8 vertebroplasty, new in the interval since 05/23/2021. Thoracic soft tissues: Unremarkable. No axillary adenopathy. Visualized Upper Abdomen: Severe atherosclerotic abdominal aortic mural calcification. Uncomplicated exophytic left lower pole renal cortical cyst. Uncomplicated interpolar right renal cortical cyst. IMPRESSION: 1. No evidence of pulmonary embolism. 2. No imaging findings to explain hypoxia. 3. Increased lung volumes consistent with chronic obstructive airways disease. 4. Incidental findings consistent with multilobar right pulmonary subsegmental endobronchial mucous plugs. No associated significant atelectasis. 5. Atherosclerotic coronary artery disease. 6. Moderate hiatus hernia. Please note that all CT scans at this facility use dose modulation, iterative reconstruction, and/or weight-based dosing when appropriate to reduce radiation dose to as low as reasonably achievable. Dictated by Terrance Sosa MD @ 12/11/2023 11:15:23 AM (Electronically Signed)
[2023-12-11] MEDS: fentaNYL 100 MCG/2 ML inj 25 MCG IVP (10:07)
[2023-12-11] MEDS: ONDANSETRON 2 MG/ML inj 4 MG IVP (10:07)
[2023-12-11 11:03] VITALS: BP 130/50; PULSE 92; RESP 18; TEMP 37.1; O2SAT 92
--- NOTE | 2023-12-11 11:36 | P.IMPN_ITS ---
Progress Note: A&P Assessment and plan (1) Hyponatremia: Problem details: Acute on chronic. Increase sodium tablets. Restrict fluid intake. Improving Status: Acute (2) Acute back pain: Problem details: Imaging does not show an acute new fracture but severe stable old T12 fracture. Ongoing fairly severe and disabling pain. Poorly tolerant of opioids due to nausea and vomiting and constipation. PT to evaluate and treat. Status: Acute (3) Constipation: Problem details: Acute on chronic. Acute on chronic laxative for treatment. Status: Acute (4) Osteoporosis: Problem details: Bone density 2016. Since then has had fragility fractures. On calcium and vitamin-D. She was apparently treated with Fosamax but is not continuing it. She was apparently treated with intravenous bisphosphonate? I recommend reconsidering this. She is interested in minimizing medical interventions but I indicated that it may be worth considering as a way of avoiding disability without adding too many side effects or toxicities. Status: Acute (5) Severe back pain: Problem details: Patient is intolerant of opioids though getting some relief with less side effects when given with hydroxyzine. Continue to optimize pain control and mobility. Patient still has goal of going home. Status: Acute (6) Mucus plugging of bronchi: Problem details: Patient has back pain associated with coughing and deep breathing. This is likely contributing to mucus plugging which is likely contributing to her hypoxia. Respiratory therapy to evaluate and treat. Improved pain control so that she can tolerate coughing and clearing her secretions Status: Acute Plan Continue in hospital for management of hypoxia, hyponatremia, back pain.. Time Spent With Patient Total time spent: Total time spent today is 45 minutes in evaluation management Subjective Date Seen: 12/11/23 Interval history: Astrid Fields is a 83 year old female admitted with acute on chronic back pain and constipation. Patient has known osteoporosis and had a severe T12 compression fracture a few years ago. 2 days ago she had marked increase in her back pain at about the T12 level. There was no new injury. She did live a heavy suitcase on Tuesday but was not aware of any injury at that time. She has no bowel or bladder incontinence. No pain shooting into her legs or new numbness or weakness in her legs. She also notes that she has recently been having increasing low abdominal pain and is been struggling to have a bowel movement. She had a small hard stool couple days ago. She does have a history of chronic constipation. She has been taking psyllium every other day alternating with MiraLax but without good results. She is not on any chronic opioids and she poorly tolerates them due to nausea. She reports a chronically poor appetite which has been worse recently. She has not had any vomiting. 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 She does not have diabetes. Along with this she has poor balance. She has never been prescribed a walker but uses her 's walker sometimes in the middle of the night when she is up to the bathroom. His walker poorly fits her. She has chronic hyponatremia and is on sodium tablets for this. December 09: Patient reports her pain might be a little better. She has received oxycodone 2.5 mg last night which made her quite nauseated. She received did with hydroxyzine today and she had less nausea and had some more relief of her pain. She has been able to eat. She has not had a bowel movement yet despite aggressive laxative therapy. No fever. No shortness of breath. She was able to get up and walk with therapy. December 10: Patient reports that she slept poorly last night. She had diarrhea secondary to aggressive laxative treatment for constipation. This morning she reports increasing right lower rib area pain. This is a new problem for her. This is lateral to the area in her back where she has had her fairly severe spinal pain. Nursing staff note that she was also hypoxic in the mid 80s. Patient reports no dyspnea or cough. She is having that right lateral chest marisela n but no other chest pain. She is not have any fever. Exam Narrative: Exam Narrative: She is alert and appears in no distress. Respirations are clear to auscultation without wheezing rales or rhonchi. Cardiovascular: S1, S2, regular rate and rhythm. Abdomen: Bowel sounds active. Abdomen is soft without tenderness. Palpation over chest wall shows some tenderness with her right lateral chest and moderate tenderness in her low thoracic spine. No external signs of rash trauma bruising. Const: Vital Signs, click to edit/add: Vital Signs - 24 hr 12/10/23 15:00 12/10/23 15:00 12/10/23 22:22 Temperature 98 F 97.8 F Pulse Rate [Pulse Oximeter] 69 80 67 Respiratory Rate 20 20 20 Blood Pressure [Le ft Arm] 125/65 126/48 L Pulse Oximetry 90 89 Oxygen Delivery Me thod Room Air Room Air 12/10/23 23:11 12/11/23 07:00 12/11/23 07:00 Temperature 97.6 F 98.8 F Pulse Rate [Pulse Oximeter] 71 91 91 Respiratory Rate 20 18 18 Blood Pressure [Le ft Arm] 125/39 L 135/61 Pulse Oximetry 88 86 L Oxygen Delivery Me thod Room Air Room Air 12/11/23 11:03 Temperature 98.7 F Pulse Rate [Pulse Oximeter] 92 Respiratory Rate 18 Blood Pressure [Le ft Arm] 130/50 L Pulse Oximetry 92 Oxygen Delivery Me thod Room Air Documenting provider has reviewed patient's vital signs: yes Labs Labs: Laboratory Results - last 24 hr 12/11/23 12/11/23 12/11/23 05:36 07:58 08:14 WBC 16.28 H RBC 3.04 L Hgb 9.5 L Hct 30.1 L MCV 99 MCH 31 MCHC 32 RDW Coeff of [place] 13.0 Plt Count 330 Neut % (Auto) 87.4 H Lymph % (Auto) 5.2 L [place] % (Auto) 6.7 Eos % (Auto) 0.1 Baso % (Auto) 0.2 Neut # (Auto) 14.20 H Lymph # (Auto) 0.80 L [place] # (Auto) 1.10 H Eos # (Auto) 0.00 Baso # (Auto) 0.00 Abs Immat Gran (auto) 0.10 Imm/Tot Granulo (auto) 0.4 D-Dimer Quant (PE/DVT) 2.10 H Sodium 129 L Potassium 4.4 Chloride 92 L Carbon Dioxide 35 H Anion Gap 2 L BUN 24 Creatinine 0.5 Estimated Creat Clear 27.59 Estimated GFR 92 Glucose 102 Calcium 10.1 NT-Pro-B Natriuret Pep 340 Lab Acknowledgement Test Added Imaging CT scan - chest: Radiologist's impression: INDICATION: Hypoxia COMPARISON: 05/23/2021. reference made to a prior report dated 05/20/2022. TECHNIQUE: CT pulmonary angiography with 95 cc of Isovue 370 intravenous contrast. Please note that all CT scans at this facility use dose modulation, iterative reconstruction, and/or weight-based dosing when appropriate to reduce radiation dose to as low as reasonably achievable. FINDINGS: Pulmonary Arterial Vasculature: Opacification of the pulmonary arterial tree is adequate. No intraluminal pulmonary arterial filling defect is identified to indicate a pulmonary embolism. Visualized Lower Neck: No lower cervical adenopathy. Mediastinum: Thoracic aorta and pulmonary trunk are normal in caliber. Moderate atherosclerotic coronary artery calcifications. Mild cardiomegaly. TAVR. Moderate hiatus hernia. Two adjacent oval hyperdense finding is within the lumen of the herniated stomach adjacent to 1 another (see coronal series 6; image 153) are consistent with ingested material, pills for example. There is no mediastinal lymphadenopathy. Lungs and Pleura: Increased lung volumes consistent with chronic obstructive airways disease. There are multifocal subsegmental endobronchial nodular opacities in the right upper and middle lobes ranging in size between 2 and 5 mm (series 5; images 52, 70 and 109). These findings most likely represent small mucous plugs. Bibasilar subpleural reticular opacities. Inferior lingular segment pleural-based band opacity. These findings are consistent with nonspecific fibrosis. The finding in the lingula is associated with subsegmental traction bronchiectasis also consistent with fibrosis. No significant pleural effusion. No pneumothorax. Skeleton: Chronic severe T12 compression deformity. T8 vertebroplasty, new in the interval since 05/23/2021. Thoracic soft tissues: Unremarkable. No axillary adenopathy. Visualized Upper Abdomen: Severe atherosclerotic abdominal aortic mural calcification. Uncomplicated exophytic left lower pole renal cortical cyst. Uncomplicated interpolar right renal cortical cyst. IMPRESSION: 1. No evidence of pulmonary embolism. 2. No imaging findings to explain hypoxia. 3. Increased lung volumes consistent with chronic obstructive airways disease. 4. Incidental findings consistent with multilobar right pulmonary subsegmental endobronchial mucous plugs. No associated significant atelectasis. 5. Atherosclerotic coronary artery disease. 6. Moderate hiatus hernia.
--- NOTE | 2023-12-11 13:35 | RESP.RT ---
Pt seen for some pulmonary hygiene. Difficult to position pt for optimum treatment secondary to Back pain, and kyphosis. However she did not complain of back pain, just needed to adjust to it, per pt. She did well with aerobika, deep breathing and coughing on command. Cough is just fair. It sounds dry. SPO2 on RA 94%. PT reports that she does move around at home during the day. Instructed pt to use Aerobika indefinitely upon DC 4 times a day for 20 breaths.
[2023-12-11 13:39] VITALS: O2SAT 94
--- NOTE | 2023-12-11 14:51 | PC.NURSE ---
End of Shift: Patient pleasant and cooperative, A&O. Patient was slightly hypoxic this morning, MD notified, CT scan complete. All other vitals stable. Patient rated her pain on her back a 5 this shift, patient was also concerned about laying on the table for the CT scan managed with IV fentanyl per MD. Patient denies nausea this shift. SBA with walker and gait belt. 1200ml fluid restriction.
[2023-12-11 15:00] VITALS: BP 141/62; PULSE 95; RESP 18; TEMP 37.6; O2SAT 87
[2023-12-11] MEDS: ACETAMINOPHEN 325 MG TABLET 650 MG PO ×2 (16:07→20:17)
[2023-12-11] MEDS: FAMOTIDINE 20 MG TABLET 40 MG PO (18:01)
[2023-12-11 18:07] VITALS: TEMP 37.3
[2023-12-11] MEDS: SENNOSIDES/DOCUSATE TABLET 2 TAB PO (20:17)
[2023-12-11 20:39] VITALS: BP 126/49; PULSE 89; RESP 20; TEMP 37.3; O2SAT 85
[2023-12-12] VITALS (10 sets, daily range): BP systolic 122–132; BP diastolic 47–78; PULSE 81–105; RESP 16–24; TEMP 36.1–37.8; O2SAT 85–91
[2023-12-12] MEDS: ACETAMINOPHEN 325 MG TABLET 650 MG PO ×4 (05:24→20:45)
--- NOTE | 2023-12-12 06:28 | PC.NURSE ---
End of shift [id number] ? Pt alert, oriented, cooperative. Pt continent of bladder during shift. Pt reported pain in back as 7/10 with an increase in pain with ambulation, managed with medication per MAR and ice pack. Pt noted to RN that her pain has improved during her stay, but is curious how she will be able to manage at home. Pt afebrile during shift. Up with standby assistance and walker/gait belt, tolerating RA and fluid restriction.?Observed to sleep during shift, appears to be resting comfortably at end of shift with call light within reach. ?
[2023-12-12 06:30] LABS: Basophils Percent Auto 0.4 % (0.0-3.0); Hematocrit 28.6 % (33.0-51.0); Hemoglobin* 9.1 gm/dL (12.0-16.0); Immature Granulocytes Pct Auto 0.4 %; Mean Corpuscular HGB Conc 32 gm/dL (32-36); Mean Corpuscular Hemoglobin 32 pg (26-34); Mean Corpuscular Volume 99 fL (80-100); Monocytes Percent Auto 8.7 % (0.0-11.0); Neutrophils Percent Auto 81.5 % (42.0-72.0); Platelet Count* 321 K/uL (140-440); RDW Coefficient of Variation % 13.4 % (11.5-15.5); Red Blood Count 2.89 m/uL (4.00-5.20); White Blood Count* 11.32 K/uL (4.50-11.00)
[2023-12-12 06:44] LABS: Chloride* 93 mmol/L (96-114); Potassium* 4.3 mmol/L (3.6-5.1); Sodium* 128 mmol/L (135-149)
[2023-12-12 06:47] LABS: Anion Gap 2 mEq/L (7-15); Blood Urea Nitrogen* 19 mg/dL (7-30); Carbon Dioxide* 33 mmol/L (20-32); Creatinine* 0.6 mg/dL (0.5-1.5); Est. Creatinine Clearance* 27.59; Estimated Glomerular Filt Rate 88 ml/min; Glucose* 84 mg/dL (60-115)
[2023-12-12 06:48] LABS: Calcium* 9.4 mg/dL (8.4-10.6)
[2023-12-12 07:02] LABS: Slide Review Reflex No
[2023-12-12] MEDS: FERROUS SULFATE 325 MG TABLET PO (09:37)
[2023-12-12] MEDS: SODIUM CHLORIDE 1 GM TABLET PO ×2 (09:37→18:24)
[2023-12-12] MEDS: OMEPRAZOLE 20 MG CAPSULE DR 40 MG PO (09:37)
[2023-12-12] MEDS: ASPIRIN 81 MG TABLET EC PO (09:37)
[2023-12-12] MEDS: AMLODIPINE 5 MG TABLET PO (09:37)
[2023-12-12] MEDS: SENNOSIDES/DOCUSATE TABLET 2 TAB PO ×2 (09:38→20:46)
[2023-12-12] MEDS: LIDOCAINE 5% PATCH 1 PATCH TRANSDERMA (09:38)
[2023-12-12] MEDS: SODIUM CHLORIDE 0.9 % (FLUSH) 10 ML SYRINGE 5 ML IVF ×2 (09:39→20:46)
--- NOTE | 2023-12-12 14:28 | CRLHL7_ITS ---
For Patients: As a result of the Cures Act, medical imaging exams and procedure reports are released immediately into your electronic medical record. You may view this report before your referring provider. If you have questions, please contact your health care provider. INDICATION: Hypoxia, fever TECHNIQUE: Chest 1 view COMPARISON: CT 12/11/2023 FINDINGS: Cardiomegaly. Hiatal hernia. Postprocedural changes thoracic spine. Aortic valve repair. Bilateral atelectasis. No consolidative density. No CHF or pneumothorax. IMPRESSION: No acute findings. Dictated by Max Pardo MD @ 12/12/2023 2:54:06 PM (Electronically Signed)
--- NOTE | 2023-12-12 14:58 | P.IMPN_ITS ---
Progress Note: A&P Assessment and plan (1) Hyponatremia: Problem details: Acute on chronic. Increase sodium tablets. Restrict fluid intake. Stable Status: Acute (2) Acute back pain: Problem details: Imaging does not show an acute new fracture but severe stable old T12 fracture. Ongoing fairly severe and disabling pain. Poorly tolerant of opioids due to nausea and vomiting and constipation. PT to evaluate and treat. Consider MRI if persistent fever/worsening pain Status: Acute (3) Constipation: Problem details: Acute on chronic. Acute on chronic laxative for treatment. Status: Acute (4) Osteoporosis: Problem details: Bone density 2016. Since then has had fragility fractures. On calcium and vitamin-D. She was apparently treated with Fosamax but is not continuing it. She was apparently treated with intravenous bisphosphonate? I recommend reconsidering this. She is interested in minimizing medical interventions but I indicated that it may be worth considering as a way of avoiding disability without adding too many side effects or toxicities. Status: Acute (5) Severe back pain: Problem details: Patient is intolerant of opioids though getting some relief with less side effects when given with hydroxyzine. Continue to optimize pain control and mobility. Patient still has goal of going home. Consider MRI if worsening pain or new fever Status: Acute (6) Mucus plugging of bronchi: Problem details: Patient has back pain associated with coughing and deep breathing. This is likely contributing to mucus plugging which is likely contributing to her hypoxia. Respiratory therapy to evaluate and treat. Improved pain control so that she can tolerate coughing and clearing her secretions Status: Acute (7) Hypoxia: Problem details: O2 sats in the 80s without dyspnea. RT evaluating and treating. CT chest shows no PE and no acute abnormality except mucus plugging. Status: Acute (8) S/P TAVR (transcatheter aortic valve replacement): Problem details: Right transfemoral TAVR with a 23 mm Chantel S3 / ULTRA (if ) valve (+2cc, 3% oversized) Status: Acute (9) Discharge planning issues: Problem details: Unclear if patient can return to independent living. May need more assistance. 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 Status: Acute Plan Continue in-hospital to evaluate and treat hypoxia, back pain and now possible new fever. Time Spent With Patient Total time spent: Total time spent today is 40 minutes in coordination of care Subjective Date Seen: 12/12/23 Interval history: Astrid Fields is a 83 year old female admitted with acute on chronic back pain and constipation. Patient has known osteoporosis and had a severe T12 compression fracture a few years ago. 2 days ago she had marked increase in her back pain at about the T12 level. There was no new injury. She did live a heavy suitcase on Tuesday but was not aware of any injury at that time. She has no bowel or bladder incontinence. No pain shooting into her legs or new numbness or weakness in her legs. She also notes that she has recently been having increasing low abdominal pain and is been struggling to have a bowel movement. She had a small hard stool couple days ago. She does have a history of chronic constipation. She has been taking psyllium every other day alternating with MiraLax but without good results. She is not on any chronic opioids and she poorly tolerates them due to nausea. She reports a chronically poor appetite which has been worse recently. She has not had any vomiting. 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 She does not have diabetes. Along with this she has poor balance. She has never been prescribed a walker but uses her 's walker sometimes in the middle of the night when she is up to the bathroom. His walker poorly fits her. She has chronic hyponatremia and is on sodium tablets for this. December 09: Patient reports her pain might be a little better. She has received oxycodone 2.5 mg last night which made her quite nauseated. She received did with hydroxyzine today and she had less nausea and had some more relief of her pain. She has been able to eat. She has not had a bowel movement yet despite aggressive laxative therapy. No fever. No shortness of breath. She was able to get up and walk with therapy. December 10: Patient reports that she slept poorly last night. She had diarrhea secondary to aggressive laxative treatment for constipation. This morning she reports increasing right lower rib area pain. This is a new problem for her. This is lateral to the area in her back where she has had her fairly severe spinal pain. Nursing staff note that she was also hypoxic in the mid 80s. Patient reports no dyspnea or cough. She is having that right lateral chest pain but no other chest pain. She is not have any fever. December 11: Patient still feeling tired today. She is not having any dyspnea. Her back pain is about the same. The pain medicines have not been particularly effective for her. She has had no cough and reports otherwise feeling well. She has been able to eat. She has not had a bowel movement since the diarrhea of a day and a half ago. This afternoon she had a low-grade fever. Exam Narrative: Exam Narrative: She is alert and appears in no distress. She gives her own history. She ap pears comfortable. Respirations are clear to auscultation. No wheezing rales rhonchi. Cardiovascular: S1, S2, 2/6 systolic murmur. No gallop or rub. Abdomen: Bowel sounds active. Abdomen is soft without tenderness or mass. Palpation over her back shows moderate tenderness over the lower thoracic spine. Lower extremities without edema. She moves all 4 extremities well. Good perfusion in all extremities. Const: Vital Signs, click to edit/add: Vital Signs - 24 hr 12/11/23 15:00 12/11/23 15:00 12/11/23 18:07 Temperature 99.6 F 99.1 F Pulse Rate [Pulse Oximeter] 95 95 Respiratory Rate 18 18 Blood Pressure [Le ft Arm] Blood Pressure [Ri ght Arm] 141/62 H Pulse Oximetry 87 L Oxygen Delivery Me thod Room Air 12/11/23 20:39 12/12/23 03:00 12/12/23 08:57 Temperature 99.2 F 98.8 F 98.4 F Pulse Rate [Pulse Oximeter] 89 89 105 H Respiratory Rate 20 20 16 Blood Pressure [Le ft Arm] 129/78 Blood Pressure [Ri ght Arm] 126/49 L 122/47 L Pulse Oximetry 85 L 88 85 L Oxygen Delivery Me thod Room Air Room Air Room Air 12/12/23 12:00 12/12/23 14:33 Temperature 98.5 F 100.0 F H Pulse Rate [Pulse Oximeter] 87 Respiratory Rate 20 Blood Pressure [Le ft Arm] 130/61 Blood Pressure [Ri ght Arm] Pulse Oximetry 87 L Oxygen Delivery Me thod Room Air Documenting provider has reviewed patient's vital signs: yes Labs Labs: Laboratory Results - last 24 hr 12/12/23 06:05 WBC 11.32 H RBC 2.89 L Hgb 9.1 L Hct 28.6 L MCV 99 MCH 32 MCHC 32 RDW Coeff of [place] 13.4 Plt Count 321 Neut % (Auto) 81.5 H Lymph % (Auto) 8.0 L [place] % (Auto) 8.7 Eos % (Auto) 1.0 Baso % (Auto) 0.4 Neut # (Auto) 9.20 H Lymph # (Auto) 0.90 [place] # (Auto) 1.00 H Eos # (Auto) 0.10 Baso # (Auto) 0.00 Abs Immat Gran (auto) 0.00 Imm/Tot Granulo (auto) 0.4 Sodium 128 L Potassium 4.3 Chloride 93 L Carbon Dioxide 33 H Anion Gap 2 L BUN 19 Creatinine 0.6 Estimated Creat Clear 27.59 Estimated GFR 88 Glucose 84 Calcium 9.4
--- NOTE | 2023-12-12 15:45 | PC.SOCIAL ---
Addendum entered by GAL Ng 12/12/23 17:16: Discharge planning: [facility] requested a COVID test for the pt due to her WBC changes and elevated D Dimer. woodworker helper relayed this message to the charge nurse on duty. Social work to follow-up as needed. Original Note: Discharge planning: woodworker helper met with pt today to discuss discharge planning. Pt is being recommended for short-term rehab at a SNF. Pt is in observation status and understands that she will need to private pay, most likely $10,000.00 down. Pt would like to go to [facility], as she wants to stay in town. Pt did also state that she would prefer a private room. woodworker helper secure emailed pt's referral to Teresa at [facility]. Teresa sent the referral to nursing for review. They do have a private room/private bath available. Social work to follow-up as needed.
[2023-12-12] MEDS: FAMOTIDINE 20 MG TABLET 40 MG PO (18:24)
[2023-12-12] MEDS: CALCIUM CARBONATE 500 MG CHEW PO (18:36)
--- NOTE | 2023-12-12 18:39 | PC.NURSE ---
End of Shift: The patient is alert and orientated. BP and pulse stable, febrile this afternoon and hypoxic (83-87%) on RA, was notified. Per Dr Morales encourage walks and use of the Aerobika. This was completed throughout the shift... When the patient is upright her O2 is noted to be 87 or greater. This afternoon the patient was noted to still be hypoxic on RA, was notified order for O2 was obtained to maintain greater than 88%. The patients stats have remained stable as she is currently up. FR 1200... doing well with this. Appetite remains decreased, no Nausea medication given this shift. This evening the patient reported a mild upset stomach... order was obtained for Ca carbonate. The patient reports moderate pain in her medial back throughout the shift despite multiple medication and non pharmaceutical interventions of ice, aqua k pad and repositioning as well as a lidocaine patch. Call light within reach, SBA w/THAI and RW. Judith GOINS BSN
[2023-12-12 23:19] LABS: PCR FLU A Negative PCR FLU A (Negative); PCR FLU B Negative PCR FLU B (Negative); PCR RSV Negative PCR RSV (Negative); SARS PCR* Negative SARS-CoV-2 (Negative)
[2023-12-13] VITALS (9 sets, daily range): BP systolic 121–148; BP diastolic 57–99; PULSE 86–99; RESP 16–20; TEMP 36.7–37.2; O2SAT 90–95; BMI 18.5
[2023-12-13] MEDS: ACETAMINOPHEN 325 MG TABLET 650 MG PO ×4 (00:45→20:17)
[2023-12-13] MEDS: hydrOXYzine pamoate 25 MG CAPSULE PO (04:53)
[2023-12-13 06:28] LABS: Basophils Absolute Auto 0.05 K/uL (0.00-0.30); Basophils Percent Auto 0.6 % (0.0-3.0); Eosinophils Absolute Auto 0.19 K/uL (0.00-0.50); Eosinophils Percent Auto 2.2 % (0.0-7.0); Hematocrit 28.1 % (33.0-51.0); Immature Granulocytes Pct Auto 1.1 %; Lymphocytes Percent Auto 14.3 % (20-44); Mean Corpuscular HGB Conc 32 gm/dL (32-36); Mean Corpuscular Hemoglobin 31 pg (26-34); Mean Corpuscular Volume 98 fL (80-100); Monocytes Percent Auto 8.9 % (0.0-11.0); Neutrophils Percent Auto 72.9 % (42.0-72.0); Platelet Count* 352 K/uL (140-440); Red Blood Count 2.88 m/uL (4.00-5.20); White Blood Count* 8.75 K/uL (4.50-11.00)
[2023-12-13 06:34] LABS: Slide Review Reflex No
[2023-12-13 06:40] LABS: Chloride* 93 mmol/L (96-114); Potassium* 3.9 mmol/L (3.6-5.1); Sodium* 126 mmol/L (135-149)
[2023-12-13 06:43] LABS: Anion Gap 3 mEq/L (7-15); Blood Urea Nitrogen* 12 mg/dL (7-30); Carbon Dioxide* 30 mmol/L (20-32); Creatinine* 0.4 mg/dL (0.5-1.5); Est. Creatinine Clearance* 28.49; Estimated Glomerular Filt Rate 98 ml/min; Glucose* 86 mg/dL (60-115)
--- NOTE | 2023-12-13 06:49 | PC.NURSE ---
: PT A&O X3. Pt remained afebrile throughout the shift. Pt 02 sat maintained >90% on RA throughout the shift. Pt denies SOB, N/V/D, CP. Pt expressed severe back pain ranging 7-10. Pt was given PRN pain medication, see MAR. Pt was also given an ice pack, extra pillows, and repositioned. Pt is SBA w/ GB and RW. Uses call light appropriately. ?
[2023-12-13 08:50] LABS: C Reactive Protein* 7.8 mg/dL (0.5-1.0)
[2023-12-13 09:04] LABS: Procalcitonin* 0.11 ng/mL (<0.50)
[2023-12-13] MEDS: OMEPRAZOLE 20 MG CAPSULE DR 40 MG PO (09:25)
[2023-12-13] MEDS: TRAMADOL HCL 50 MG TABLET 25 MG PO ×2 (09:25→17:41)
[2023-12-13] MEDS: SENNOSIDES/DOCUSATE TABLET 2 TAB PO ×2 (09:25→20:18)
[2023-12-13] MEDS: ASPIRIN 81 MG TABLET EC PO (09:26)
[2023-12-13] MEDS: AMLODIPINE 5 MG TABLET PO (09:26)
[2023-12-13] MEDS: SODIUM CHLORIDE 1 GM TABLET PO ×3 (09:26→17:40)
[2023-12-13] MEDS: SODIUM CHLORIDE 0.9 % (FLUSH) 10 ML SYRINGE 5 ML IVF ×2 (09:26→20:19)
--- NOTE | 2023-12-13 10:38 | PC.SOCIAL ---
Addendum entered by GAL Ng 12/13/23 12:36: Discharge planning: Pt's son will be able to transport her to [facility] tomorrow. Pt was switched to inpatient status today due to a low sodium level. The provider on duty will look at labs and review in the AM if she is able to transport to [facility] on Tuesday. Social work to follow-up as needed. Original Note: Discharge planning: Pt has been accepted to [facility] for Tuesday(12/13) to a private room/shared bathroom for short-term rehab. Pt will accept the room. Social work to follow-up as needed.
--- NOTE | 2023-12-13 12:01 | PM.IMPN1 ---
Progress Note: A&P Assessment and plan (1) Hyponatremia: Problem details: Acute on chronic. Increase sodium tablets. Restrict fluid intake. Sodium is dropping again probably because of poor oral intake and pain. Status: Acute (2) Acute back pain: Problem details: Imaging does not show an acute new fracture but severe stable old T12 fracture. Ongoing fairly severe and disabling pain. Poorly tolerant of opioids due to nausea and vomiting and constipation. PT to evaluate and treat. Consider MRI if persistent fever/worsening pain Status: Acute (3) Constipation: Problem details: Acute on chronic. Acute on chronic laxative for treatment. Status: Acute (4) Osteoporosis: Problem details: Bone density 2016. Since then has had fragility fractures. On calcium and vitamin-D. She was apparently treated with Fosamax but is not continuing it. She was apparently treated with intravenous bisphosphonate? I recommend reconsidering this. She is interested in minimizing medical interventions but I indicated that it may be worth considering as a way of avoiding disability without adding too many side effects or toxicities. Status: Acute (5) Severe back pain: Problem details: Patient is intolerant of opioids though getting some relief with less side effects when given with hydroxyzine. Continue to optimize pain control and mobility. Low-dose gabapentin at bedtime, tramadol, lidocaine patch, calcitonin nasal spray. Status: Acute (6) Mucus plugging of bronchi: Problem details: Patient has back pain associated with coughing and deep breathing. This is likely contributing to mucus plugging which is likely contributing to her hypoxia. Respiratory therapy to evaluate and treat. Improved pain control so that she can tolerate coughing and clearing her secretions Status: Acute (7) Hypoxia: Problem details: O2 sats in the 80s without dyspnea. RT evaluating and treating. CT chest shows no PE and no acute abnormality except mucus plugging. Hypoxia improved today, December 12. Status: Acute (8) S/P TAVR (transcatheter aortic valve replacement): Problem details: Right transfemoral TAVR with a 23 mm Chantel S3 / ULTRA (if ) valve (+2cc, 3% oversized) Status: Acute (9) Discharge planning issues: Problem details: Unclear if patient can return to independent living. May need more assistance. 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 No obvious focus of infection or illness. Primarily back pain Status: Acute (11) Poor appetite: Problem details: Ongoing problem. Making correction of sodium difficult. Status: Acute (12) Drug intolerance: Problem details: Poorly tolerant of opioids due to nausea and vomiting. Will try tramadol Status: Acute Plan Patient is admitted to the hospital due to ongoing difficulties with managing hyponatremia, hypoxia, pain, nausea and anorexia. Continue to adjust medications to optimize management of pain and hyponatremia. Continue therapy to improve mobility. Continue to monitor hypoxia. Time Spent With Patient Total time spent: Total time spent today is 55 minutes in evaluation management discussing with patient other providers ongoing plan of care Subjective Date Seen: 12/13/23 Interval history: Astrid Fields is a 83 year old female admitted with acute on chronic back pain and constipation. Patient has known osteoporosis and had a severe T12 compression fracture a few years ago. 2 days ago she had marked increase in her back pain at about the T12 level. There was no new injury. She did live a heavy suitcase on Tuesday but was not aware of any injury at that time. She has no bowel or bladder incontinence. No pain shooting into her legs or new numbness or weakness in her legs. She also notes that she has recently been having increasing low abdominal pain and is been struggling to have a bowel movement. She had a small hard stool couple days ago. She does have a history of chronic constipation. She has been taking psyllium every other day alternating with MiraLax but without good results. She is not on any chronic opioids and she poorly tolerates them due to nausea. She reports a chronically poor appetite which has been worse recently. She has not had any vomiting. 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 She does not have diabetes. Along with this she has poor balance. She has never been prescribed a walker but uses her 's walker sometimes in the middle of the night when she is up to the bathroom. His walker poorly fits her. She has chronic hyponatremia and is on sodium tablets for this. December 09: Patient reports her pain might be a little better. She has received oxycodone 2.5 mg last night which made her quite nauseated. She received did with hydroxyzine today and she had less nausea and had some more relief of her pain. She has been able to eat. She has not had a bowel movement yet despite aggressive laxative therapy. No fever. No shortness of breath. She was able to get up and walk with therapy. December 10: Patient reports that she slept poorly last night. She had diarrhea secondary to aggressive laxative treatment for constipation. This morning she reports increasing right lower rib area pain. This is a new problem for her. This is lateral to the area in her back where she has had her fairly severe spinal pain. Nursing staff note that she was also hypoxic in the mid 80s. Patient reports no dyspnea or cough. She is having that right lateral chest pain but no other chest pain. She is not have any fever. December 11: Patient still feeling tired today. She is not having any dyspnea. Her back pain is about the same. The pain medicines have not been particularly effective for her. She has had no cough and reports otherwise feeling well. She has been able to eat. She has not had a bowel movement since the diarrhea of a day and a half ago. This afternoon she had a low-grade fever. December 12: Patient reports poorly controlled pain. She reports she did not sleep well last night due to her back pain. She had oxycodone available but did not use it due to severe nausea. She reports ongoing poor appetite and has been eating little food. She had a low-grade fever, temp 100.0? F, yesterday but no recurrent fever. Exam Narrative: Exam Narrative: She is alert and appears in no distress. Respirations are clear to auscultation. indigo vat tender cloth over her lower thoracic spine. No rash or trauma. Cardiovascular: S1, S2, regular rate and rhythm. Abdomen: Bowel sounds are present. Abdomen is soft without tenderness or mass. She moves all 4 extremities well. No edema. Const: Vital Signs, click to edit/add: Vital Signs - 24 hr 12/12/23 14:33 12/12/23 15:00 12/12/23 15:35 Temperature 100.0 F H 98.9 F Pulse Rate [Pulse Oximeter] 81 Respiratory Rate 20 Blood Pressure [Le ft Arm] Blood Pressure [Ri ght Arm] 122/49 L Pulse Oximetry 87 L 87 L Oxygen Delivery Me thod Room Air Room Air Oxygen Flow Rate 12/12/23 16:00 12/12/23 17:30 12/12/23 19:00 Temperature 97 F L Pulse Rate [Pulse Oximeter] 92 Respiratory Rate 24 Blood Pressure [Le ft Arm] Blood Pressure [Ri ght Arm] 132/66 Pulse Oximetry 90 91 90 Oxygen Delivery Me thod Nasal Cannula Room Air Room Air Oxygen Flow Rate 0.5 12/12/23 22:42 12/12/23 22:42 12/13/23 02:39 Temperature 98.9 F 98.3 F Pulse Rate [Pulse Oximeter] 86 99 Respiratory Rate 22 20 Blood Pressure [Le ft Arm] Blood Pressure [Ri ght Arm] 129/58 L 145/99 H Pulse Oximetry 91 93 Oxygen Delivery Me thod Room Air Room Air Room Air Oxygen Flow Rate 0 12/13/23 09:17 12/13/23 09:30 12/13/23 11:06 Temperature 98.0 F Pulse Rate [Pulse Oximeter] 90 95 Respiratory Rate 20 20 18 Blood Pressure [Le ft Arm] 148/70 H 136/73 Blood Pressure [Ri ght Arm] Pulse Oximetry 93 92 95 Oxygen Delivery Me thod Room Air Room Air Room Air Oxygen Flow Rate Documenting provider has reviewed patient's vital signs: yes Labs Labs: Laboratory Results - last 24 hr 12/12/23 12/13/23 12/13/23 22:25 06:02 08:23 WBC 8.75 RBC 2.88 L Hgb 9.0 L Hct 28.1 L MCV 98 MCH 31 MCHC 32 RDW Coeff of [place] 13.0 Plt Count 352 Neut % (Auto) 72.9 H Lymph % (Auto) 14.3 L [place] % (Auto) 8.9 Eos % (Auto) 2.2 Baso % (Auto) 0.6 Neut # (Auto) 6.40 Lymph # (Auto) 1.30 [place] # (Auto) 0.80 Eos # (Auto) 0.19 Baso # (Auto) 0.05 Abs Immat Gran (auto) 0.10 Imm/Tot Granulo (auto) 1.1 Sodium 126 L Potassium 3.9 Chloride 93 L Carbon Dioxide 30 Anion Gap 3 L BUN 12 Creatinine 0.4 L Estimated Creat Clear 28.49 Estimated GFR 98 Glucose 86 Calcium 9.0 C-Reactive Protein 7.8 H Procalcitonin 0.11 SARS-CoV-2 (PCR) Negative SARS-CoV-2 Influenza Type A (PCR) Negative PCR FLU A Influenza Type B (PCR) Negative PCR FLU B RSV (PCR) Negative PCR RSV Lab Acknowledgement Test Added
[2023-12-13 13:04] LABS: Iron* 33 ug/dL (37-170)
[2023-12-13 13:13] LABS: Percent Iron Saturation 12 % (20-50); Total Iron Binding Capacity 278 ug/dL (265-497)
[2023-12-13 13:20] LABS: Vitamin D 25 Hydroxy* 66 ng/mL (30-80)
[2023-12-13 13:53] LABS: Vitamin B12* 992 pg/mL (243-894)
[2023-12-13] MEDS: IRON SUCROSE COMPLEX 200 MG in 0.9 % SODIUM CHLORIDE 100 ml 440 MG IVPB (13:54)
[2023-12-13] MEDS: FAMOTIDINE 20 MG TABLET 40 MG PO (17:40)
--- NOTE | 2023-12-13 19:34 | PC.NURSE ---
End of Shift: The patient is alert and orientated..... PRN tramadol was tried this AM with adequate pain relief. Ice pack also offering relief. The patient showered today with OT. IV iron was infused this shift was found to be low. SBA w/ RW to bathroom... BM today as well. Calls appropriately. [facility] tomorrow transport by son. Judith GOINS BSN
[2023-12-13] MEDS: CALCITONIN SALMON NASAL SPRAY 200 UNIT 1 SPRAY NOSTRIL-B (20:19)
[2023-12-14 03:00] VITALS: BP 134/54; PULSE 96; RESP 18; TEMP 36.9; O2SAT 91
[2023-12-14 06:19] LABS: Basophils Absolute Auto 0.05 K/uL (0.00-0.30); Basophils Percent Auto 0.6 % (0.0-3.0); Eosinophils Absolute Auto 0.25 K/uL (0.00-0.50); Eosinophils Percent Auto 3.1 % (0.0-7.0); Hemoglobin* 8.8 gm/dL (12.0-16.0); Immature Granulocytes Abs Auto 0.07 K/uL (0.00-0.30); Immature Granulocytes Pct Auto 0.9 %; Lymphocytes Percent Auto 13.9 % (20-44); Mean Corpuscular HGB Conc 33 gm/dL (32-36); Mean Corpuscular Hemoglobin 31 pg (26-34); Mean Corpuscular Volume 96 fL (80-100); Monocytes Percent Auto 10.6 % (0.0-11.0); Neutrophils Absolute Auto 5.73 K/uL (1.7-7.0); Neutrophils Percent Auto 70.9 % (42.0-72.0); Platelet Count* 378 K/uL (140-440); RDW Coefficient of Variation % 12.8 % (11.5-15.5); White Blood Count* 8.08 K/uL (4.50-11.00)
[2023-12-14 06:23] LABS: Slide Review Reflex No
--- NOTE | 2023-12-14 06:30 | PC.NURSE ---
End of shift note [id number]: Pt alert & oriented x 4 and able make needs known. Moderate lower back pain treated with PRN pain medication, ice, rest and repositioning. VSS. Pt has been afebrile and on RA throughout the shift. Continent of bladder with no BM noted this shift. IV to L wrist patent and SL. Pt remains on 1200 mL daily FR. She transfers/ambulates with SBA using FWW and gait belt.
[2023-12-14 06:32] LABS: Chloride* 95 mmol/L (96-114); Potassium* 3.8 mmol/L (3.6-5.1); Sodium* 126 mmol/L (135-149)
[2023-12-14 06:35] LABS: Anion Gap 3 mEq/L (7-15); Blood Urea Nitrogen* 10 mg/dL (7-30); Carbon Dioxide* 28 mmol/L (20-32); Creatinine* 0.4 mg/dL (0.5-1.5); Est. Creatinine Clearance* 28.97; Estimated Glomerular Filt Rate 98 ml/min
[2023-12-14 06:36] LABS: Calcium* 8.9 mg/dL (8.4-10.6); Glucose* 81 mg/dL (60-115)
[2023-12-14 07:00] VITALS: BP 144/71; PULSE 100; RESP 18; TEMP 37.1; O2SAT 94
[2023-12-14 07:30] LABS: Erythrocyte SedimentationRate* 55 mm/hr (2-20)
[2023-12-14] MEDS: SODIUM CHLORIDE 1 GM TABLET PO ×2 (07:46→12:19)
[2023-12-14 08:07] VITALS: RESP 18; O2SAT 94
[2023-12-14 08:08] VITALS: PULSE 100; RESP 18
[2023-12-14] MEDS: polyethylene glycoL 3350 17 GM PACK PO (08:30)
[2023-12-14] MEDS: OMEPRAZOLE 20 MG CAPSULE DR 40 MG PO (08:31)
[2023-12-14] MEDS: ACETAMINOPHEN 325 MG TABLET 650 MG PO (08:31)
[2023-12-14] MEDS: SENNOSIDES/DOCUSATE TABLET 2 TAB PO (08:31)
[2023-12-14] MEDS: AMLODIPINE 5 MG TABLET PO (08:31)
[2023-12-14] MEDS: ASPIRIN 81 MG TABLET EC PO (08:31)
[2023-12-14] MEDS: SODIUM CHLORIDE 0.9 % (FLUSH) 10 ML SYRINGE 5 ML IVF (08:32)
[2023-12-14] MEDS: LIDOCAINE 5% PATCH 1 PATCH TRANSDERMA (09:22)
[2023-12-14 12:32] VITALS: BP 137/61; PULSE 92; RESP 20; TEMP 36.7; O2SAT 98
--- NOTE | 2023-12-14 13:00 | PC.NURSE ---
Discharge: Patient pleasant and cooperative, A&O. VSS, afebrile. SpO2 maintained above 90% on RA. Patient reports pain on her back this shift, managed with PRN medication, see MAR. Tolerating regular diet. Discharge instructions provided, all questions answered. IV removed with tip intact. Discharged to [facility] with son at 1250.
--- NOTE | 2023-12-14 15:38 | PC.SOCIAL ---
Discharge planning: Pt went to [facility] today for short-term rehab. Pt's son transported her. Discharge orders were secure emailed to Teresa at [facility] and the pre-admission screening number was sent to Teresa via secure email. [phone]. Pt went to a private room with a shared bathroom and was private pay. Before discharge, pt was hesitant about going to [facility] due to originally being told that she would get a private room with a private bathroom. However, yesterday [facility] stated that they only had a private room with a shared bathroom available for the pt. bridge gang worker explained to the pt that [facility] gets a lot of referrals and they decide who gets which room and that she could discuss that more in depth with them when she arrived at the facility. Pt was happy with that plan and still planned to go to [facility] today. Pt was provided a copy of The Important Message from Medicare form before her discharge. Pt had no plans to appeal her discharge. Social work to follow-up as needed.
--- NOTE | 2023-12-24 19:23 | P.DS_ITS ---
DS: Providers Provider Date Seen: 01/14/24 Date of admission: 12/13/23 10:58 Primary care physician: Liz Moseley DO Admitting Clinician: Andreas Morales MD Attending Physician on discharge: Andreas Morales MD Date of Discharge: 12/14/23 DS: Diagnosis Discharge Diagnosis (1) Hyponatremia: Status: Acute Problem details: Acute on chronic. Increased sodium tablets. Acute decline due to acute pain and poor oral intake. (2) Acute back pain: Status: Acute Problem details: Imaging does not show an acute new fracture but severe stable old T12 fracture. Ongoing fairly severe and disabling pain. Poorly tolerant of opioids due to nausea and vomiting and constipation. Pain gradually improved during hospital stay. (3) Constipation: Status: Acute Problem details: Acute on chronic. Acute on chronic laxative for treatment. (4) Osteoporosis: Status: Acute Problem details: Bone density 2016. Since then has had fragility fractures. On calcium and vitamin-D. She was apparently treated with Fosamax but is not continuing it. She was apparently treated with intravenous bisphosphonate? I recommend reconsidering this. She is interested in minimizing medical interventions but I indicated that it may be worth considering as a way of avoiding disability wi thout adding too many side effects or toxicities. (5) Severe back pain: Status: Acute Problem details: Patient is intolerant of opioids though getting some relief with less side effects when given with hydroxyzine. Continue to optimize pain control and mobility. Low-dose gabapentin at bedtime, tramadol, lidocaine patch, calcitonin nasal spray. (6) Mucus plugging of bronchi: Status: Resolved Problem details: Patient has back pain associated with coughing and deep breathing. This is likely contributing to mucus plugging which is likely contributing to her hypoxia. Respiratory therapy to evaluate and treat. Improved pain control so that she can tolerate coughing and clearing her secretions (7) Hypoxia: Status: Resolved Problem details: O2 sats in the 80s without dyspnea. RT evaluating and treating. CT chest shows no PE and no acute abnormality except mucus plugging. Hypoxia improved before d ischarge. (8) S/P TAVR (transcatheter aortic valve replacement): Status: Inactive Problem details: Right transfemoral TAVR with a 23 mm Chantel S3 / ULTRA (if ) valve (+2cc, 3% oversized) (9) Fever: Status: Resolved Problem details: Low-grade fever December 11. No obvious focus of infection or illness. (10) Poor appetite: Status: Acute Problem details: Ongoing problem. Making correction of sodium difficult. (11) Drug intolerance: Status: Acute Problem details: Poorly tolerant of opioids due to nausea and vomiting. Will try tramadol DS: Summary Hospital Course Hospital Course: Astrid Fields is a 83 year old female admitted with acute on chronic back pain and constipation. Patient has known osteoporosis and had a severe T12 comp ression fracture a few years ago. 2 days ago she had marked increase in her back pain at about the T12 level. There was no new injury. She did live a heavy suitcase on Tuesday but was not aware of any injury at that time. She has no bowel or bladder incontinence. No pain shooting into her legs or new numbness or weakness in her legs. She also notes that she has recently been having increasing low abdominal pain and is been struggling to have a bowel movement. She had a small hard stool couple days ago. She does have a history of chronic constipation. She has been taking psyllium every other day alternating with MiraLax but without good results. She is not on any chronic opioids and she poorly tolerates them due to nausea. She reports a chronically poor appetite which has been worse recently. She has not had any vomiting. 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 She does not have diabetes. Along with this she has poor balance. She has never been prescribed a walker but uses her 's walker sometimes in the middle of the night when she is up to the bathroom. His walker poorly fits her. She has chronic hyponatremia and is on sodium tablets for this. December 09: Patient reports her pain might be a little better. She has received oxycodone 2.5 mg last night which made her quite nauseated. She received did with hydroxyzine today and she had less nausea and had some more relief of her pain. She has been able to eat. She has not had a bowel movement yet despite aggressive laxative therapy. No fever. No shortness of breath. She was able to get up and walk with therapy. December 10: Patient reports that she slept poorly last night. She had diarrhea secondary to aggressive laxative treatment for constipation. This morning she reports increasing right lower rib area pain. This is a new problem for her. This is lateral to the area in her back where she has had her fairly severe spinal pain. Nursing staff note that she was also hypoxic in the mid 80s. Patient reports no dyspnea or cough. She is having that right lateral chest pain but no other chest pain. She is not have any fever. December 11: Patient still feeling tired today. She is not having any dyspnea. Her back pain is about the same. The pain medicines have not been particularly effective for her. She has had no cough and reports otherwise feeling well. She has been able to eat. She has not had a bowel movement since the diarrhea of a day and a half ago. This afternoon she had a low-grade fever. December 12: Patient reports poorly controlled pain. She reports she did not sleep well last night due to her back pain. She had oxycodone available but did not use it due to severe nausea. She reports ongoing poor appetite and has been eating little food. She had a low-grade fever, temp 100.0? F, yesterday but no recurrent fever. December 13: Pain improved. Appetite improved. No fever. No hypoxia. Status at Discharge Functional status at discharge: uses cane/walker Overall status at discharge: patient is progressing back to baseline Time Spent with Patient Time attestation: Total time spent providing and/or coordinating discharge services: Time spent: Greater than 30 minutes Exam Narrative: Exam Narrative: She is alert and appears in no distress. She is oriented to her circumstances. She moves fairly well and repositioning herself in bed. Respirations are clear to auscultation. Breathing is unlabored. Discharge Plan Discharge Disposition: [facility] Date of Admission: 12/13/23 10:58 Attending Provider on Discharge: Andreas Morales Primary Care Provider: Liz Moseley Condition: Stable Discharge Medications: New calcitonin (salmon) 200 unit/actuation Lissie,Non-Aerosol 1 spray intranasal HS Qty: 1 0RF bisacodyl 10 mg Suppository 10 mg IN DAILY PRNQty: 12 0RF polyethylene glycol 3350 [Miralax] 17 gram Powder In Packet 17 g PO DAILY Qty: 476 0RF sennosides-docusate sodium [Stool Softener-Laxative] 8.6-50 mg Tablet 2 tab PO BID Qty: 120 0RF sodium chloride 1,000 mg Tablet,Soluble 1,000 mg PO TIDWM Qty: 90 0RF tramadol 50 mg Tablet 25 mg PO Q6H PRNQty: 30 0RF Continued amlodipine 5 mg tablet 5 mg PO DAILY omeprazole 40 mg capsule,delayed release(DR/EC) 40 mg PO DAILY carboxymethylcellulose sodium [Refresh Plus] 0.5 % dropperette 1 drp ophthalmic (eye-left) QID PRN cholecalciferol (vitamin D3) 25 mcg (1,000 unit) capsule 25 mcg PO DAILY multivitamin [Multiple Vitamins] Tablet 1 tab PO DAILY aspirin 81 mg capsule 81 mg PO DAILY estradiol 0.01 % (0.1 mg/gram) cream 1 appful VAGINAL DAILY PRN (Reason: vaginal dryness) famotidine 40 mg tablet 40 mg PO QPM ferrous sulfate 325 mg (65 mg iron) tablet,delayed release (DR/EC) 325 mg PO MOTH Patient Comments: take one tablet by mouth Tuesday and calcium carbonate-vitamin D3 [Calcium 600 + D(3)] 600 mg-10 mcg (400 unit) tablet 1 tab PO DAILY polyethylene glycol 3350 [Miralax] 17 gram/dose powder 17 g PO Q48H Rx Instructions: ALTERNATES WITH SENNA Changed acetaminophen 500 mg tablet 1,000 mg PO TID PRN (Reason: Back Pain) Qty: 100 0RF Discontinued sennosides [Nisa-rosangela] 8.6 mg tablet 8.6 mg PO Q48H sodium chloride 1 gram tablet 1,000 mg PO DAILY Discharge Orders: Discharge Order (Routine); Ordered 12/14/23 Ordered By: Andreas Morales Activity Level: Activity as Tolerated, Up with assist and Use Walker Discharge Diet: Regular Follow Up Appointments: Liz Moseley DO [Primary Care Provider] - Forms: [facility] Info Instructions Admit to: SNF Discharge Potential: Fair Length of Stay: <30 days Can use facility standing orders?: Yes Code Status: DNR TEDs: Bilateral Knee Rehab Potential: Fair Therapy: Physical Therapy and Occupational Therapy Therapy Orders: Evaluate and Treat Oxygen: Yes Oxygen Delivery Method: Nasal Cannula Oxygen Flow Rate: Oxygen at 2 L per nasal cannula as needed to keep O2 sats at 90% or higher Urinary Catheter: No Lab Orders: Check serum sodium in 5 days.
== END 2023-12-14 12:50 | DRG 641 ==
LOC: ED 17:00 → MEDSURG 18:03
PROVIDERS: Family Medicine; Admitting Provider Family Medicine; Emergency Provider Family Medicine; PCP Family Medicine; Visit Provider Family Medicine
DX: E87.1 Hypo-osmolality and hyponatremia (principal); Z68.1 Body mass index [BMI] 19.9 or less, adult; T17.590A Other foreign object in bronchus causing asphyxiation, initial encounter; R64 Cachexia; M81.0 Age-related osteoporosis without current pathological fracture; K21.9 Gastro-esophageal reflux disease without esophagitis; K59.00 Constipation, unspecified; R50.9 Fever, unspecified; R63.0 Anorexia; G89.29 Other chronic pain; M54.6 Pain in thoracic spine; M54.50 Low back pain, unspecified; Z95.2 Presence of prosthetic heart valve; Z86.73 Personal history of transient ischemic attack (TIA), and cerebral infarction without residual deficits; I35.0 Nonrheumatic aortic (valve) stenosis
CPT/HCPCS: 36415; 71045; 71275; 72131; 74177; 80048; 80053; 81001; 82306; 82565; 82607; 83540; 83550; 83605; 83880; 84145; 85025; 85379; 85651; 86140; 87086; 87631; 94664; 94761; 97110; 97116; 97161; 97165; 97530; 97535; 99284; 99285; A9270; G0378; J1756; J2405; J3010; J7050; Q9967

== ENCOUNTER 2025-03-18 15:45 | Outpatient (CLI) | payer MEDICARE, BC, SELFPAY | END 2025-03-18 15:46 | disposition home or self-care (01) | LOC: AMB 03-20 09:44 | PROVIDERS: PCP Family Medicine; Visit Provider Family Medicine | DX: R10.9 Unspecified abdominal pain (principal); R55 Syncope and collapse | CPT/HCPCS: A0425; A0427 ==

== ENCOUNTER 2025-03-18 16:14 | Inpatient (IN) | payer MEDICARE, BC, SELFPAY ==
[2025-03-18] VITALS (7 sets, daily range): BP systolic 108–123; BP diastolic 43–57; PULSE 90–99; RESP 18–48; TEMP 36.6–37.2; O2SAT 93–99; BMI 19.5; BMI 18.1; BMI 18.2
--- OUTSIDE RECORDS SUMMARY | 2025-03-18 16:16 | XMS_ITS | Clinical Summary ---
Author Organization [employer] [facility] Address [address] [place] [id number] Care Team Providers Care Production Recorder Name Role Phone Liz Moseley Primary Care Provider [phone] Allergies Active Allergy Reactions Criticality Noted Date Comments Latex Rash 08/11/2009 Lisinopril Cough 06/13/2019 Sulfa (Sulfonamide Antibiotics) Rash 03/24 Medications cholecalciferol (VITAMIN D3) 1,000 unit capsule Take 1 capsule by mouth once daily. 0 12/16/19 16 Active multivitamin (MVI) tablet Take 1 Tablet by mouth once daily. 05/27/19 22 Active polyethylene glycoL (MIRALAX) 17 gram/dose powder Mix 1 scoop (17 g) in liquid then take by mouth 2 times daily if needed for Constipation. 05/27/19 22 Active Carboxymethylcellu lose Sodium 0.25 % ophthalmic solution Place into the eye(s) 4 times daily if needed. 0 05/28/19 22 Active acetaminophen (TYLENOL EXTRA STRGTH) 500 mg tablet Take 500-1,000 mg by mouth at bedtime. Max acetaminophen dose: 4000mg in 24 hrs. Active aspirin chewable 81 mg chewable tabletIndications: Severe aortic stenosis Chew 1 Tablet (81 mg) by mouth once daily with a meal. 90 Tablet 3 07/09/19 23 Active calcium carbonate (CALTRATE) 600 mg calcium (1,500 mg) tablet Take 1 Tablet (600 mg) by mouth two times daily with meals. 180 Tablet 3 08/10/19 23 Active estradioL (ESTRACE) 0.01% (0.1 mg/g) vaginal creamIndications:U rethral caruncle APPLY A FINGERTIP AMOUNT TO THE CARUNCLE DAILY FOR TWO WEEKS, THEN TWICE WEEKLY FOR 2 TO 3 MONTHS 42.5 g 5 01/03/20 23 Active amLODIPine (NORVASC) 5 mg tabletIndications: HTN (hypertension) Take 1 Tablet (5 mg) by mouth once daily in the evening. 90 Tablet 3 03/27/20 24 Active famotidine (PEPCID) 40 mg tabletIndications: Gastric reflux Take 1 Tablet (40 mg) by mouth once daily. 90 Tablet 3 03/27/20 24 Active omeprazole (PRILOSEC) 40 mg Delayed-Release capsuleIndications :Gastric reflux Take 1 Capsule (40 mg) by mouth once daily before a meal. 90 Capsule 3 03/27/20 24 Active sennosides-docusat e (SENOKOT S) (8.6-50 mg) tabletIndications: Chronic constipation Take 1 Tablet by mouth once daily. 2 tablets nightly. 90 Tablet 3 04/25/20 24 Active Additional Information Patient taking differently:1 Tablet Oral DAILY,2 tablets nightly PRN, Reported on 10/16/2024 diclofenac topical (VOLTAREN) 1 % gelIndications:Ost eoarthritis of thoracic spine, unspecified spinal osteoarthritis complication status Apply 2-4 g topically to affected area(s) four times daily. As needed for pain 250 g 07/10/19 25 Active nystatin powder powderIndications: Yeast dermatitis Apply twice daily as needed 60 g 2 10/17/19 25 Active sodium chloride 1,000 mg soluble tabletIndications: Hyponatremia Take 1 Tablet (1,000 mg) by mouth three times daily with meals. 270 Tablet 12/20/19 25 Active gabapentin (NEURONTIN) 100 mg capsuleIndications :Neuropathy Take 2 Capsules (200 mg) by mouth at bedtime. 180 Capsule 3 01/23/20 25 Active Hospital, Clinic, or Other Facility Administered Medication Ordered Dose Route Frequency Start Date End Date Status ferumoxytoL (FERAHEME) 510 mg/17 mL (30 mg/mL) injection 510 mgIndications:Mild chronic anemia 510 mg IV ONE TIME PRN 02/25/2025 01/21/2026 Active Active Problems Problem Noted Date Diagnosed Date PAD (peripheral artery disease) 01/12/2024 Primary biliary cholangitis 09/20/2022 Depression, recurrent 09/20/2022 SOB (shortness of breath) 05/27/2022 Severe aortic stenosis 05/27/2022 Moderate to severe aortic stenosis 12/15/2021 Cachexia 07/01/2021 Iron deficiency anemia 12/13/2018 Overview (06/13/2019): 11/2018: Mild anemia since 2015. Had EGD and colonoscopy back in 2015. Lab evaluation done 11/2018 c/w likely iron def anemia, no evidence bone marrow disorder. Iron started. Recheck Hemoglobin in Feb 2019 and was normal. Chronic superficial gastritis without bleeding 0 2016 Overview (2016): EGD 01/2016 gastritis Osteoporosis 08/12/2015 Overview (08/12/2015): Bone density 08/08/15. Start fosamax, vitamin D and calcium. Recheck in 2 years Gastroesophageal reflux disease without esophagi tis 07/31/2015 Cholelithiasis 08/11/2012 Colon polyp 06/26/2010 Overview (06/26/2015): Colonoscopy 05/2010 polyp repeat in 5 years Colonoscopy 06/2015 diverticulosis, no follow up needed Encounters Date Type Department Care Team Description 03/18/2025 2:15 PM CDT Ancillary Procedure [facility] [address] [place] [address] Arrived 03/18/2025 2:00 PM CDT Ancillary Procedure [facility] [address] [place] [address] Arrived 03/18/2025 1:40 PM CDT Office Visit [facility] [address] [place] [address] Roni Navas MD Musculoskeletal Problem (Consult back pain, compression fracture in 2020, and last November 2023) 03/18/2025 Travel 03/11/2025 Telephone [facility] [address] [place] [address] Liz Moseley, Error-please disregard 01/23/2025 Telephone [facility] [address] [facility] [address] Liz Moseley DO Appointment (Schedule Feraheme infusions x 2) 01/22/2025 9:35 AM CDT Office Visit [facility] [address] [facility] [address] Liz Moseley DO Lab (follow up ); Back Pain (Follow up in alot of pain ) 01/22/2025 Travel 01/15/2025 9:30 AM CDT Orders Only [facility] [address] [place] [address] [place] Lab 01/15/2025 Travel 12/18/2024 Refill [facility] [address] [facility] [address] Liz Moseley DO Refill Request (Sodium Chloride) from Last 3 Months Immunizations Immunization Administration Dates Next Due AMB INFLUENZA IIV3 (AGE 65+ YRS) PF (Flu Clinic Only) 03/27/2018 COVID-19 VACCINE SPIKEVAX (M ODERNA 50MCG/0.5ML) 12YO+ PFS 10/16/2024 COVID-19 vaccine (Moderna 100mcg/0.5mL) PF, MDV 07/13/2020,06/15/2020 COVID-19 vaccine (Pfizer-Bio NTech 30mcg/0.3mL) 12YO+ BIVALENT PF, MDV 08/09/2022 COVID-19 vaccine (Pfizer-Bio NTech 30mcg/0.3mL) 12YO+ PASQUALE-SUCROSE PF, MDV 10/27/2021 COVID-19 vaccine (Pfizer-Bio NTech 30mcg/0.3mL) PF, MDV 04/20/2021 Influenza, High-dose Inactivated 03/20/2015 Influenza, Inactivated AIIV4 (Age 65+ Years) Preserv Free 02/08/2023,02/22/2022,02/25/2021,2019 Influenza, Inactivated IIV3 (Age 65+ Years) Preserv Free 02/23/2024,03/22/2019,02/10/2017 Pneumococcal Poly,23-Valent (Pneumovax) 07/05/2008 Pneumococcal conj 13-Valent (Prevnar 13) 07/03/2015 Td, Preservative Free (age > = 7 Years) 07/05/2008 Family History Medical History Relation Name Comments Other Father unknown ca Other Mother lymphoma Cancer-breast Sister Relation Name Status Comments Father Mother Sister Social History Tobacco Use Types Packs/Day Years Used Date Smoking Tobacco: Former Cigarettes 1 20 1 956 - 05/23/1975 Smokeless Tobacco: Never Tobacco Cessation:Counseling Given: Yes Alcohol Use Standard Drinks/Week Comments No 0 (1 standard drink = 0.6 oz pur e alcohol) PHQ-2 Answer Date Recorded PHQ-2 TOTAL SCORE 2 03/24/2022 Social Connections Answer Date Recorded Do you often feel lonely or isolated from those around you? 0 02/23/2024 Financial Resource Strain Answer Date R ecorded Difficulty of Paying Living Expenses 3 02/23/2024 Difficulty of Paying Living Expenses Not on file 02/23/2024 Food Insecurity Answer Date Recorded Do you worry your food will run out before you are able to buy more? 1 02/23/2024 Transportation Needs Answer Date Record ed Does lack of transportation keep you from medica l appointments? 1 02/23/2024 Does lack of transportation keep you from work, meetings or getting things that you need? 1 02/23/2024 Housing Stability Answer Date Recorded What is your housing situation today? 1 02/23/2024 Utilities Answer Date Recorded Do you have trouble paying f or utilities (for example, heat, electricity, water, phone)? 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 Gender Identity Not on file Sexual Orientation Not on file Obstetrics History Para Term AB IAB SAB Ectopic Multiple Livin g Live Births 4 4 4 0 0 0 0 0 0 4 4 Date Outcome GA Total Labor Labor/2nd/3rd Weight Sex Type Anes PTL Nayla A1 A5 Name Clin Term Vag Living Term Vag Living Term Vag Living Term Vag Living Last Filed Vital Signs Vital Sign Reading Time Taken Comments Blood Pressure 121/58 03/18/2025 3:28 PM CDT Pulse 85 03/18/2025 3:28 PM CDT Temperature 36.3 C (97.4 F) 03/18/2025 1:54 PM CDT Respiratory Rate 16 07/09/2022 7:50 AM ORAL SURGEON Oxygen Saturation 100% 03/18/2025 3:28 PM CDT Inhaled Oxygen Concentration - - Weight 41.1 kg (90 lb 11.2 oz) 01/22/2025 9:45 A M CDT Height 144.8 cm (4' 9) 03/18/2025 1:54 PM CDT Body Mass Index 18.32 08/13/2022 3:10 PM CDT Plan of Treatment Upcoming Encounters Date Type Department Care Team (Late st Contact Info) Description 03/19/2025 9:15 AM CDT Orders Only [facility] [address] [place] [address] [place] 03/19/2025 9:30 AM CDT Nurse/Clinic Staff Only [facility] [address] [place] [address] 03/26/2025 9:30 AM ORAL SURGEON Nurse/Clinic Staff Only [facility] [address] [place] [address] Health Maintenance Due Date Last Done Comments Zoster (shingles) series for age 50+ (1 of 2) 1989 Medicare Wellness for age 65+ 02/17/2004 RSV vaccine for adults or (1 - 1-dose 75+ series) 2014 Tetanus booster 07/05/2018 07/05/2008 Depression screening for age 12+ 03/24/2023 03/24/2022, 09/08/2020, 03/22/2019, Additional history exists BMI (ht and wt on same day) for age 18+ 08/14/2023 08/13/2022, 06/30/2022, 05/27/2022, Additional history exists Influenza Vaccine (#1) 2025 , 02/08/2023, 02/22/2022, Additional history exists Pneumococcal series for age 50+ Completed 07/03/2015, 07/05/2008 DEXA/DXA scan for age 65+ Completed 2023, 09/24/2021, 08/08/2015 Hepatitis B series for 19+ Aged Out N o longer eligible based on patient's age to complete this topic Medical Devices Implanted Type Area Popcorn Attendant Device Identifier Shelf Expiration Date Model / Serial / Lot Mesh Prolift Plus M Post - [id number] Implanted:Qty: 1 on 08/25/2009 at [facility] [employer] [id number] / / [id number] Mesh Prolift Plus M Ant - [id number] Implanted:Qty: 1 on 08/24/2010 at [facility] [employer] / [employer]ro [id number] / / [id number] Procedures Procedure Name Priority Date/Time Associated Diagnosis Comments HEMOGLOBIN Routine 01/15/2025 9:32 AM CDT Iron deficiency anemia, unspecified iron deficiency anemia type FERRITIN Routine 01/15/2025 9:32 AM CDT Iron deficiency anemia, unspecified iron deficiency anemia type VITAMIN D 25 (DEFICIENCY) Routine 01/15/2025 9:32 AM CDT High vitamin D level XR DXA BONE DENSITY 2 SITES AXIAL Routine 03/15/2024 3:27 PM CDT Osteoporosis, unspecified osteoporosis type, unspecified pathological fracture presence from Last 3 Months or Most Recently Relevant to Health Maintenance Results * VITAMIN D 25 (DEFICIENCY) (01/15/2025 9:32 AM CDT) VITAMIN D,25-OH,TOTAL,IA 79 30 - 100 ng/mL 01/16/2025 4:35 AM CDT [email or web address] Comment: Vitamin D Status 25-OH Vitamin D: Deficiency: <20 ng/mL Insufficiency: 20 - 29 ng/mL Optimal: > or = 30 ng/mL For 25-OH Vitamin D testing on patients on D2-supplementation and patients for whom quantitation of D2 and D3 fractions is required, the [employer]ure[employer]() 25-OH VIT D, (D2,D3), LC/MS/MS is recommended: order code [id number] (patients >2yrs). See Note 1 Note 1 For additional information, please refer to [email or web address] (This link is being provided for informational/ educational purposes only.) Blood BLOOD SPECIMEN / Unknown [facility] / Unknown 01/15/2025 9:32 AM CDT 01/15/2025 9:33 AM CDT us Liz Moseley DO SEND OUTS Final Resu lt Performing Organization Address [facility]/ZIP Co de Phone Number [facility] [address] [place] [id number], [place] [phone] * (ABNORMAL) HEMOGLOBIN (01/15/2025 9:32 AM CDT) HEMOGLOBIN 9.8(L) 11.7 - 15.5 g/dL 01/16/2025 3:22 AM CDT [facility] Blood BLOOD SPECIMEN / Unknown [facility] / Unknown 01/15/2025 9:32 AM CDT 01/15/2025 9:33 AM CDT us Liz Moseley DO HEMATOLOGY Final Resu lt Performing Organization Address [facility] Co de Phone Number [facility] [address] [address], [place] [phone] * FERRITIN (01/15/2025 9:32 AM CDT) FERRITIN 37 16 - 288 ng/mL 01/16/2025 4:35 AM CDT [facility] Blood BLOOD SPECIMEN / Unknown [facility] / Unknown 01/15/2025 9:32 AM CDT 01/15/2025 9:33 AM CDT us Liz Moseley DO CHEMISTRY Final Resu lt Performing Organization Address [facility]/ZIP Co de Phone Number [facility] [address] [place] [address], [place] [phone] * (ABNORMAL) XR DXA BONE DENSITY 2 SITES AXIAL (03/15/2024 3:27 PM CDT) Anatomical Region Laterality Modality Spine, HIPS, HIPL, HIPR Other Impressions 03/16/2024 4:19 PM CDT Osteoporosis. RECOMMENDATIONS: The National Osteoporosis Foundation recommends pharmacologic treatment for patients with T-scores of -2.5 or less, patients with prior history of fragility fractures, or patients with 10-year probability of greater than 3% at hips or greater than 20% of suffering major osteoporotic fractures. Recommend continued optimization of calcium and vitamin D intake through dietary means and/or supplementation and regular exercise. Consider pharmacologic therapy for osteoporosis. Follow-up bone density reading in 2 years if therapy initiated to assess therapeutic efficacy. Pamela Ghotra PA-C [facility] 03/16/2024 Narrative 03/16/2024 4:19 PM CDT For Patients: Results are automatically released to your [facility] account once available, in compliance with federal regulations. This means that you may see your results before your provider has had a chance to review them. Please allow 2-3 business days for your provider to comment on the results. XR DXA Bone Mineral Density (BMD) EXAM LOCATION: [facility] [address] [facility] [address] PATIENT NAME: Astrid Fields DATE OF : 1940 EXAM DATE: 03/15/2024 REQUESTING PROVIDER: Liz Moseley DO GENDER AT : female HEIGHT: 4' 11 (08/13/2022) WEIGHT: 89 lb 3.2 oz (02/23/2024) MENOPAUSAL STATUS: Postmenopausal RACE/ETHNICITY: White RISK FACTORS: Family History of Osteoporosis, Height Loss (2 inches or more), Smoking (prior), Weight < 127 lbs., and White Race CURRENT MEDICATION FOR BONE LOSS: NONE INDICATION: Follow-up of existing osteoporosis COMPARISON DATE(S): 2021 DXA scans are compared to prior studies for a patient only when the two (or more) studies were performed on the same scanner. It is not possible to compare data generated on one scanner to data from another because there are not standards in DXA equipment. This applies even if the two scanners are made by the same orthotic assistant. PROCEDURE: Dual-energy x-ray absorptiometry performed with routine technique. Reporting is completed in the form of a T-score. The T-score represents the standard deviation from peak bone mass based on young healthy adult. A Z-score is used for diagnosis in premenopausal women, and for men under the age of 50. FINDINGS: RESULT LUMBAR SPINE L1 - L4 BMD: 0.733 g/cm2 T-Score: - 3.7 Z-Score: - 1.0 Change from prior in 2021: Increase 11.3%. RESULTS FEMUR Left femoral neck BMD: 0.633 g/cm2 T-Score: - 2.9 Z-Score: + 0.0 Change from prior in 2021: Increase 3.6%. Right femoral neck BMD: 0.588 g/cm2 T-Score: - 3.2 Z-Score: - 0.3 Change from prior in 2021: Decrease 4.9%. Left hip BMD: 0.635 g/cm2 T-Score: - 3.0 Z-Score: - 0.1 Change from prior in 2021: Increase 3.6%. Right hip BMD: 0.619 g/cm2 T-Score: - 3.1 Z-Score: - 0.2 Change from prior in 2021: Decrease 5.6%. WHO criteria: Normal: T-score at or above -1 SD Osteopenia: T-score between -1.1 and -2.4 SD Osteoporosis: T-score at or below -2.5 SD Liz Moseley DO DEXA Final Resu lt from Last 3 Months or Most Recently Relevant to Health Maintenance Insurance MEDICARE PB ONLY MEDICARE PART A HB ONLY MEDICARE PART B HB ONLY [facility] Advance Directives * Full Code (Latest Code Status on File) Date Activated Date Inactivated Comments 07/08/2022 7:18 AM 07/09/2022 3:10 PM Question Answer Comments Code Status Discussion: Unable to Assess Preferences, Provider to review later * Full Code Date Activated Date Inactivated Comments 08/24/2010 8:47 AM 08/25/2010 4:30 PM * Full Code Date Activated Date Inactivated Comments 08/25/2009 8:15 AM 08/26/2009 5:51 PM Care Teams Production Recorder Relationship Specialty Start Date End Date Liz Moseley DO [address] [place] [address] PCP - General Family Practice 05/07/15
--- NOTE | 2025-03-18 17:35 | ED.SYNCOPE ---
HPI - Syncope General Chief Complaint: Syncope/Fainted Stated Complaint: Fainting Time Seen by Provider: 03/18/25 16:55 History of Present Illness HPI narrative: This 85-year-old female with chronic back pain was in to see Dr. Rosales in the spine clinic. During this visit she grew lightheaded and had brief loss of consciousness. A caregiver was with her at the time but currently family members are with her and were not present at the time of this episode but state that she had similar lightheaded experience several days ago. The patient has chronic back pain and states that she feels back to normal now. She states that she has been having some constipation but more recently has had diarrhea after taking MiraLax. She does take a blood pressure medicine. She is also getting iron infusions for anemia. Related Data Home Medications ?Medication ?Instructions ?Recorded ?Confirmed aspirin 81 mg capsule 81 mg PO DAILY 07/11/22 12/09/23 calcium 600 mg (as 1 tab PO DAILY 07/11/22 12/09/23 carbonate)-vitamin D3 10 mcg (400 unit) tablet (Calcium 600 + D(3)) estradiol 0.01% (0.1 mg/gram) 1 appful vaginal DAILY PRN vaginal 07/11/22 12/09/23 vaginal cream dryness famotidine 40 mg tablet 40 mg PO QPM 07/11/22 12/10/23 ferrous sulfate 325 mg (65 mg 325 mg PO MOTH 07/11/22 12/10/23 iron) tablet,delayed release polyethylene glycol 3350 17 17 g PO Q48H 07/11/22 12/10/23 gram/dose oral powder (Miralax) amlodipine 5 mg tablet 5 mg PO DAILY 12/09/23 12/09/23 omeprazole 40 mg capsule,delayed 40 mg PO DAILY 12/09/23 12/09/23 release carboxymethylcellulose sodium 0.5 1 drp ophthalmic (eye-left) QID PRN 12/10/23 12/10/23 % eye drops in a dropperette (Refresh Plus) cholecalciferol (vitamin D3) 25 25 mcg PO DAILY 12/10/23 12/10/23 mcg (1,000 unit) capsule multivitamin (Multiple Vitamins 1 tab PO DAILY 12/10/23 12/10/23 tablet) Previous Rx's ?Medication ?Instructions ?Recorded acetaminophen 500 mg tablet 1,000 mg (2 x 500 mg) PO TID PRN 12/14/23 Back Pain #100 tabs bisacodyl 10 mg rectal suppository 10 mg [place] DAILY PRN #12 ea 12/14/23 calcitonin (salmon) 200 1 spray intranasal HS #1 mL 12/14/23 unit/actuation nasal spray polyethylene glycol 3350 17 gram 17 g PO DAILY #476 ea 12/14/23 oral powder packet (Miralax) sennosides 8.6 mg-docusate sodium 2 tab PO BID #120 tabs 12/14/23 50 mg tablet (Stool Softener-Laxative) sodium chloride 1,000 mg soluble 1,000 mg PO TIDWM #90 tabs 12/14/23 tablet tramadol 50 mg tablet 25 mg (1/2 x 50 mg) PO Q6H PRN #30 12/14/23 tabs Allergies Allergy/AdvReac Type Severity Reaction Status Date / Time latex Allergy Mild Rash Verified 12/11/23 10:04 Sulfa (Sulfonamide Allergy Mild Rash Verified 12/11/23 10:04 Antibiotics) lisinopril AdvReac Mild Cough Verified 12/11/23 10:04 Review of Systems Status of ROS: Reports: 10 or more systems reviewed and unremarkable except as noted in History and below Narrative: Constitutional: No fevers, no weight gain or loss. Eyes: No discharge. No vision changes. HENT: No congestion, no sore throat, no ear pain. Cardiovascular: No chest pain, no palpitations. Respiratory: No shortness of breath, no wheezes, no cough. Gastrointestinal: No abdominal pain, no vomiting, no diarrhea. Genitourinary: No dysuria, no hematuria. Musculoskeletal: Chronic back pain. Skin: No rashes, no pruritis. Neurological: No weakness, sensory change, speech change. Endo/Heme/Allergies: No bruising or bleeding. No polydipsia. Pysch: no suicidality, no anxiety, no insomnia. All other systems reviewed and are negative. [facility] Medical History (Updated 03/18/25 @ 18:49 by Chris Tejada MD) Stroke ?I63.9 - Cerebral infarction, unspecified (ICD-10) H/O echocardiogram ?Z92.89 - Personal history of other medical treatment (ICD-10) Chronic hyponatremia ?E87.1 - Hypo-osmolality and hyponatremia (ICD-10) Cachexia ?R64 - Cachexia (ICD-10) Iron deficiency anemia ?D50.9 - Iron deficiency anemia, unspecified (ICD-10) Chronic superficial gastritis without bleeding ?K29.30 - Chronic superficial gastritis without bleeding (ICD-10) Osteoporosis ?M81.0 - Age-related osteoporosis without current pathological fracture (ICD-10) GERD (gastroesophageal reflux disease) ?K21.9 - Gastro-esophageal reflux disease without esophagitis (ICD-10) Colon polyp ?K63.5 - Polyp of colon (ICD-10) Severe aortic stenosis ?I35.0 - Nonrheumatic aortic (valve) stenosis (ICD-10) Surgical History (Updated 12/22/23 @ 00:01 by Niko Lott) 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) ?Z95.2 - Presence of prosthetic heart valve (ICD-10) H/O rectocele repair (08/24/10) ?Z98.890 - Other specified postprocedural states (ICD-10) H/O rectocele repair (08/25/09) ?Z98.890 - Other specified postprocedural states (ICD-10) Hx laparoscopic cholecystectomy (08/28/12) ?Z90.49 - Acquired absence of other specified parts of digestive tract (ICD-10) H/O tubal ligation (~1974) ?Z98.51 - Tubal ligation status (ICD-10) Hx of esophagogastroduodenoscopy (02/12/16) ?Z98.890 - Other specified postprocedural states (ICD-10) Hx of colonoscopy ?Z98.890 - Other specified postprocedural states (ICD-10) History of arthroscopy of left shoulder (~2008) ?Z98.890 - Other specified postprocedural states (ICD-10) Family History Sister Breast cancer Father Cancer Mother Lymphoma Social History (Updated 12/09/23 @ 23:44 by Andreas Morales MD) Narrative: Living independently. 2 years ago. He had dementia with behavioral disturbances and she says she is still not over his decline and . Smoked, 20 pack years, quit 50 years ago. Nonsmoker.. DNR. She reports that she was quite unhappy with skilled nursing placement when she had her T12 compression fracture about 3 years ago. She said she would rather than return to a skilled nursing. She is more afraid of disability than . What is your current living situation?: I presently have a place to live Problems where you live: no known problems Problems where you live details: n/a In the past 12 months, utilities in danger of being shut off: no In past 12 months, lack of transportation kept you from medical appts, meetings, work, or getting things needed for daily living: no In the past 12 mos, have been you worried that your food would run out before you had money to buy more?: never true In the past 12 mos, the food you bought just didn't last and you didn't have money to buy more?: never true Highest level of school completed/degree received: high school graduate Smoking Status: Former smoker Do you use any of these nicotine containing products: None How often do you have a drink containing alcohol: never How often do you have six or more drinks on one occasion: Never AUDIT-C Alcohol total score: 0 Non-prescribed substance use: denies use Caffeine: Yes (2 cups of coffee) How often does anyone, including family, friends and others, physically hurt you: never How often does anyone, including family, friends and others, insult or talk down to you: never How often does anyone, including family, friends and others, threaten you with harm: never How often does anyone, including family, friends and others, scream or curse at you: never service: No Exam Narrative: Exam Narrative: Constitutional: Well-developed, well-nourished, no acute distress. HEENT: Normocephalic, atraumatic. Neck: Normal range of motion. Nontender. Supple. Heart: Regular. No murmurs. Normal rate. Intact distal pulses. Lungs: Clear to auscultation. No chest discomfort. No wheezes, rhonchi, or rales. Abdomen: Normal bowel sounds. Nontender. No rebound tenderness. Genitalia: Deferred. Extremities: Normal range of motion. No injury. Skin: Intact. No rash. Warm. No erythema or pallor. Neurologic: No altered sensation. No weakness. Alert and oriented. Psychiatric: No suicidality. No anxiety or depression. No insomnia. Nursing notes and vitals signs are reviewed. Const: Vital Signs, click to edit/add: Vital Signs - 24 hr 03/18/25 16:41 Temperature 97.9 F Pulse Rate [Right Pulse Oximeter] 90 Respiratory Rate 48 H Blood Pressure [Ri ght Upper Arm] 123/57 L Pulse Oximetry 99 Oxygen Delivery Me thod Room Air Course Vital Signs Vital signs: Initial Vital Signs Temperature 97.9 F 03/18/25 16:41 Temperature Source Temporal Artery Scan 03/18/25 16:41 Pulse Rate 90 03/18/25 16:41 Respiratory Rate 48 H 03/18/25 16:41 Blood Pressure 123/57 L 03/18/25 16:41 Blood Pressure Mean 79 03/18/25 16:41 Blood Pressure Position Sitting 03/18/25 16:41 Pulse Oximetry 99 03/18/25 16:41 Oxygen Delivery Method Room Air 03/18/25 16:41 Vital Signs Temperature 97.9 F 03/18/25 16:41 Pulse Rate 90 03/18/25 16:41 Respiratory Rate 48 H 03/18/25 16:41 Blood Pressure 123/57 L 03/18/25 16:41 Pulse Oximetry 99 03/18/25 16:41 Oxygen Delivery Method Room Air 03/18/25 16:41 Temperature 97.9 F 03/18/25 16:41 Pulse Rate 90 03/18/25 16:41 Respiratory Rate 48 H 03/18/25 16:41 Blood Pressure 123/57 L 03/18/25 16:41 Pulse Oximetry 99 03/18/25 16:41 Oxygen Delivery Method Room Air 03/18/25 16:41 Medications Administered Medications: Discontinued Medications Generic Name Dose Route Start Last Admin Trade Name Freq PRN Reason Stop Dose Admin Sodium Chloride 500 mls @ 500 mls/hr 03/18/25 17:32 03/18/25 17:59 0.9 % Sodium Chloride 500 Ml IV 03/18/25 18:31 500 mls/hr .Q1H ONE Administration MDM - Syncope MDM Narrative Medical decision making narrative: this patient comes in with report of a syncopal event. She has been having some lightheadedness recently. She does have a history of chronic anemia with hemoglobins around 8 or 9 and also is taking iron infusions. An IV was established where she received half a L of normal saline. Labs are acquired and some notable findings include hemoglobin at 4.4 and sodium at 125. Looking in recent records her last hemoglobin 2 months ago was 9.8. The patient does not report any significant blood loss in her history. She states that occasionally she does have some dark red in the toilet. I did place an order for 2 units of packed red blood cells and spoke with the hospitalist on-call who agrees to her admission to attend to her sodium and hemoglobin levels. Lab Data Labs: Lab Results 03/18/25 Range/Units 17:50 WBC 12.08 H (4.50-11.00) K/uL RBC 1.76 L (4.00-5.20) m/uL Hgb 4.4 L* (12.0-16.0) gm/dL Hct 15.1 L (33.0-51.0) % MCV 86 (80-100) fL MCH 25 L (26-34) pg MCHC 29 L (32-36) gm/dL RDW Coeff of [place] 14.7 (11.5-15.5) % Plt Count 377 (140-440) K/uL Neut % (Auto) 89.4 H (42.0-72.0) % Lymph % (Auto) 4.6 L (20-44) % [place] % (Auto) 4.2 (0.0-11.0) % Eos % (Auto) 0.7 (0.0-7.0) % Baso % (Auto) 0.4 (0.0-3.0) % Neut # (Auto) 10.80 H (1.7-7.0) K/uL Lymph # (Auto) 0.60 L (0.90-2.90) K/uL [place] # (Auto) 0.50 (0.00-0.90) K/UL Eos # (Auto) 0.10 (0.00-0.50) K/uL Baso # (Auto) 0.00 (0.00-0.30) K/uL Abs Immat Gran (auto) 0.10 (0.00-0.30) K/uL Imm/Tot Granulo (auto) 0.7 % Sodium 125 L (135-149) mmol/L Potassium 4.2 (3.6-5.1) mmol/L Chloride 93 L (96-114) mmol/L Carbon Dioxide 23 (20-32) mmol/L Anion Gap 9 (7-15) mEq/L BUN 27 (7-30) mg/dL Creatinine 0.8 (0.5-1.5) mg/dL Estimated Creat Clear 26.02 Estimated GFR 72 ml/min Glucose 112 (60-115) mg/dL Calcium 9.3 (8.4-10.6) mg/dL ECG Data Attestation: I personally reviewed and interpreted this ECG as follows: Interpretation: Normal sinus rhythm. Rate is 91 beats per minute. There are no ST or T-wave abnormalities. Discharge Plan Discharge Clinical Impression: Hyponatremia, Anemia Patient Disposition: Admitted As Observation Condition: Unchanged
[2025-03-18] MEDS: 0.9 % SODIUM CHLORIDE 500 ML 500 ML IV (17:59)
[2025-03-18 18:01] LABS: Hematocrit* 15.1 % (33.0-51.0); Immature Granulocytes Pct Auto 0.7 %; Mean Corpuscular HGB Conc 29 gm/dL (32-36); Mean Corpuscular Hemoglobin 25 pg (26-34); Mean Corpuscular Volume 86 fL (80-100); RDW Coefficient of Variation % 14.7 % (11.5-15.5); Red Blood Count* 1.76 m/uL (4.00-5.20); White Blood Count* 12.08 K/uL (4.50-11.00)
[2025-03-18 18:10] LABS: Chloride* 93 mmol/L (96-114)
[2025-03-18 18:11] LABS: Potassium* 4.2 mmol/L (3.6-5.1); Sodium* 125 mmol/L (135-149)
[2025-03-18 18:13] LABS: Blood Urea Nitrogen* 27 mg/dL (7-30); Creatinine* 0.8 mg/dL (0.5-1.5); Est. Creatinine Clearance* 26.02; Estimated Glomerular Filt Rate 72 ml/min; Immature Granulocytes Abs Auto 0.10 K/uL (0.00-0.30)
[2025-03-18 18:14] LABS: Anion Gap 9 mEq/L (7-15); Calcium* 9.3 mg/dL (8.4-10.6); Carbon Dioxide* 23 mmol/L (20-32); Glucose* 112 mg/dL (60-115); Hemoglobin* 4.4 gm/dL (12.0-16.0); Lymphocytes Absolute Auto 0.60 K/uL (0.90-2.90); Slide Review Reflex No
--- NOTE | 2025-03-18 20:23 | PM.IMHP1 ---
Assessment and Plan Assessment and plan (1) Anemia: Problem comment: - chronic anemia with acute worsening, suspect blood loss from upper GI bleed - hold aspirin, continue PPI - EGD in the morning Status: Acute (2) Iron deficiency anemia: Problem comment: History of iron deficiency anemia chronically, per [facility] records: - 2016: EGD/Colonoscopy reassuring - 2015: lab evaluation c/w iron deficiency anemia without evidence of bone marrow dysfunction, started oral iron --> Hgb 12.23 February 2019 - 2021: Hgb 10.0, further workup with [facility], reassuring EGD and declined colonoscopy - [id number]: Hgb 9.3-12.1 with baseline of 10 during this time - May 2024: Hgb 7.0 and treated with IV Iron x2, declined further workup - December 2024: Hgb 9.8 Status: Acute (3) Hyponatremia: Problem comment: - acute on chronic, likely worsened given poor po intake - already on salt tabs at home, will continue these Status: Acute (4) Cachexia: Problem comment: - chronically poor appetite by history - BMI 18-19; has lost 3 kg from last hospital stay in 2023 Status: Acute Plan - per above - son, daughters updated bedside, questions answered - requires inpatient stay given severity of anemia, need for multiple transfusions and close monitoring, hypotension and tachycardia Hospitalist- H&P: HPI History of Present Illness Date Seen: 03/18/25 Chief complaint: Fainting Narrative: Astrid Fields is a 85 year old female who presented to the ER after having a syncopal episode at the [facility] clinic today. She was attending an outpatient appointment for chronic back and hip pain when she had syncope. No seizure activity. History of presyncope and lightheadedness over the last week. No chest pain or palpitations. ER Course and findings: - Hgb 4.4 (was 9.8 01/15/25) - Na 125 (baseline 127-133) - BP lower than baseline with cesilia of 108/43, HR 90-100 Astrid is admitted the hospital for symptomatic anemia with hypotension, tachycardia, and need for multiple blood transfusions + further workup. History of iron deficiency anemia chronically, per [facility] records: - 2016: EGD/Colonoscopy reassuring - 2015: lab evaluation c/w iron deficiency anemia without evidence of bone marrow dysfunction, started oral iron --> Hgb 12.23 February 2019 - 2021: Hgb 10.0, further workup with [facility], reassuring EGD and declined colonoscopy - [id number]: Hgb 9.3-12.1 with baseline of 10 during this time - May 2024: Hgb 7.0 and treated with IV Iron x2, declined further workup - December 2024: Hgb 9.8 Endorses dark stools over the past few weeks. Notes feeling some nausea recently, has been taking Pepto-Bismol in addition to her omeprazole. Review of Systems Status of ROS: Reports: 10 or more systems reviewed and unremarkable except as noted in History and below Narrative: - no new pain, endorses her chronic pain in back and hips Medical Decision Making Medical Decision Making Code Status: DNR/DNI Has patient completed a Health Care Directive: Yes During This Stay, Who Would You Like To Make Decisions For You In The Event You Are Unable To Make Them For Yourself?: Daughter Nabila or son Augustine (POAs) Relevant situational information: Has had a TCU rehab stay in the past; states she would rather than return to a skilled nursing. 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) ?K74.3 - Primary biliary cirrhosis (ICD-10) PAD (peripheral artery disease) (01/12/24) ?I73.9 - Peripheral vascular disease, unspecified (ICD-10) Moderate to severe aortic stenosis (12/15/21) ?I35.0 - Nonrheumatic aortic (valve) stenosis (ICD-10) Cachexia (07/01/21) ?R64 - Cachexia (ICD-10) Stroke ?I63.9 - Cerebral infarction, unspecified (ICD-10) H/O echocardiogram ?Z92.89 - Personal history of other medical treatment (ICD-10) Chronic hyponatremia ?E87.1 - Hypo-osmolality and hyponatremia (ICD-10) Cachexia ?R64 - Cachexia (ICD-10) Iron deficiency anemia ?D50.9 - Iron deficiency anemia, unspecified (ICD-10) Chronic superficial gastritis without bleeding ?K29.30 - Chronic superficial gastritis without bleeding (ICD-10) Osteoporosis ?M81.0 - Age-related osteoporosis without current pathological fracture (ICD-10) GERD (gastroesophageal reflux disease) ?K21.9 - Gastro-esophageal reflux disease without esophagitis (ICD-10) Colon polyp ?K63.5 - Polyp of colon (ICD-10) Severe aortic stenosis ?I35.0 - Nonrheumatic aortic (valve) stenosis (ICD-10) Surgical History (Updated 12/22/23 @ 00:01 by Niko Lott) 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) ?Z95.2 - Presence of prosthetic heart valve (ICD-10) H/O rectocele repair (08/24/10) ?Z98.890 - Other specified postprocedural states (ICD-10) H/O rectocele repair (08/25/09) ?Z98.890 - Other specified postprocedural states (ICD-10) Hx laparoscopic cholecystectomy (08/28/12) ?Z90.49 - Acquired absence of other specified parts of digestive tract (ICD-10) H/O tubal ligation (~1974) ?Z98.51 - Tubal ligation status (ICD-10) Hx of esophagogastroduodenoscopy (02/12/16) ?Z98.890 - Other specified postprocedural states (ICD-10) Hx of colonoscopy ?Z98.890 - Other specified postprocedural states (ICD-10) History of arthroscopy of left shoulder (~2008) ?Z98.890 - Other specified postprocedural states (ICD-10) Family History Sister Breast cancer Father Cancer Mother Lymphoma Social History (Updated 03/18/25 @ 21:15 by Leanna Quiñones MD) Narrative: Living independently, . Smoked 20 pack years, quit 50 years ago. Son Augustine and Daughter Nabila share POA duties. DNR/DNI. What is your current living situation?: I presently have a place to live Problems where you live: no known problems Problems where you live details: n/a In the past 12 months, utilities in danger of being shut off: no In past 12 months, lack of transportation kept you from medical appts, meetings, work, or getting things needed for daily living: no In the past 12 mos, have been you worried that your food would run out before you had money to buy more?: never true In the past 12 mos, the food you bought just didn't last and you didn't have money to buy more?: never true Highest level of school completed/degree received: high school graduate Smoking Status: Former smoker Do you use any of these nicotine containing products: None How often do you have a drink containing alcohol: never How often do you have six or more drinks on one occasion: Never AUDIT-C Alcohol total score: 0 Non-prescribed substance use: denies use Caffeine: Yes (2 cups of coffee) How often does anyone, including family, friends and others, physically hurt you: never How often does anyone, including family, friends and others, insult or talk down to you: never How often does anyone, including family, friends and others, threaten you with harm: never How often does anyone, including family, friends and others, scream or curse at you: never service: No Meds Home Medications and Allergies Home Medications ?Medication ?Instructions ?Recorded ?Confirmed ?Type aspirin 81 mg capsule 81 mg PO DAILY 07/11/22 12/09/23 History calcium 600 mg (as 1 tab PO DAILY 07/11/22 12/09/23 History carbonate)-vitamin D3 10 mcg (400 unit) tablet (Calcium 600 + D(3)) estradiol 0.01% (0.1 mg/gram) 1 appful vaginal DAILY PRN vaginal 07/11/22 12/09/23 History vaginal cream dryness famotidine 40 mg tablet 40 mg PO QPM 07/11/22 12/10/23 History ferrous sulfate 325 mg (65 mg 325 mg PO MOTH 07/11/22 12/10/23 History iron) tablet,delayed release polyethylene glycol 3350 17 17 g PO Q48H 07/11/22 12/10/23 History gram/dose oral powder (Miralax) amlodipine 5 mg tablet 5 mg PO DAILY 12/09/23 12/09/23 History omeprazole 40 mg capsule,delayed 40 mg PO DAILY 12/09/23 12/09/23 History release carboxymethylcellulose sodium 0.5 1 drp ophthalmic (eye-left) QID PRN 12/10/23 12/10/23 History % eye drops in a dropperette (Refresh Plus) cholecalciferol (vitamin D3) 25 25 mcg PO DAILY 12/10/23 12/10/23 History mcg (1,000 unit) capsule multivitamin (Multiple Vitamins 1 tab PO DAILY 12/10/23 12/10/23 History tablet) acetaminophen 500 mg tablet 1,000 mg (2 x 500 mg) PO TID PRN 12/14/23 12/10/23 Rx Back Pain #100 tabs bisacodyl 10 mg rectal suppository 10 mg [place] DAILY PRN #12 ea 12/14/23 Rx calcitonin (salmon) 200 1 spray intranasal HS #1 mL 12/14/23 Rx unit/actuation nasal spray polyethylene glycol 3350 17 gram 17 g PO DAILY #476 ea 12/14/23 Rx oral powder packet (Miralax) sennosides 8.6 mg-docusate sodium 2 tab PO BID #120 tabs 12/14/23 Rx 50 mg tablet (Stool Softener-Laxative) sodium chloride 1,000 mg soluble 1,000 mg PO TIDWM #90 tabs 12/14/23 Rx tablet tramadol 50 mg tablet 25 mg (1/2 x 50 mg) PO Q6H PRN #30 12/14/23 Rx tabs Home Medication Comments: Has been taking her daily ASA, and daily PPI. Also on iron. Allergies Allergy/AdvReac Type Severity Reaction Status Date / Time latex Allergy Mild Rash Verified 12/11/23 10:04 Sulfa (Sulfonamide Allergy Mild Rash Verified 12/11/23 10:04 Antibiotics) lisinopril AdvReac Mild Cough Verified 12/11/23 10:04 Exam Narrative: Exam Narrative: GEN: Alert and oriented, laying in bed comfortably, cachectic HEENT: + conjunctival pallor CV: Tachycardic with rate 100s during my exam, + early heard best left sternal border R: LCTA bilaterally without concerning wheezing Ext: wwp, no concerning edema Skin: No concerning skin lesions or rashes on exposed skin Neuro: No focal deficits Psych: Appropriate Const: Vital Signs, click to edit/add: Vital Signs - 24 hr 03/18/25 16:41 03/18/25 19:54 Temperature 97.9 F Pulse Rate [Right Pulse Oximeter] 90 Respiratory Rate 48 H 20 Blood Pressure [Ri ght Upper Arm] 123/57 L 108/43 L Pulse Oximetry 99 Oxygen Delivery Me thod Room Air Hospitalist - H&P: Result Labs Labs: Short CBC 03/18/25 Range/Units 17:50 WBC 12.08 H (4.50-11.00) K/uL Hgb 4.4 L* (12.0-16.0) gm/dL Hct 15.1 L (33.0-51.0) % Plt Count 377 (140-440) K/uL BMP 03/18/25 17:50 Sodium 125 L Potassium 4.2 Chloride 93 L Carbon Dioxide 23 BUN 27 Creatinine 0.8 Glucose 112 Calcium 9.3
[2025-03-18] MEDS: ACETAMINOPHEN 500 MG TABLET 1000 MG PO (21:54)
[2025-03-19] VITALS (15 sets, daily range): BP systolic 104–143; BP diastolic 44–66; PULSE 72–99; RESP 16–20; TEMP 36.4–37.2; O2SAT 92–99; BMI 18.2
[2025-03-19] MEDS: ACETAMINOPHEN 325 MG TABLET 975 MG PO (01:56)
[2025-03-19] MEDS: FUROSEMIDE 10 MG/ML inj 20 MG IV (02:41)
[2025-03-19] MEDS: SODIUM CHLORIDE 0.9 % (FLUSH) 10 ML SYRINGE 5 ML IVF ×2 (02:46→09:52)
[2025-03-19 03:27] LABS: Hematocrit* 24.2 % (33.0-51.0); Immature Granulocytes Pct Auto 0.4 %; Mean Corpuscular HGB Conc 32 gm/dL (32-36); Mean Corpuscular Hemoglobin 27 pg (26-34); Mean Corpuscular Volume 86 fL (80-100); RDW Coefficient of Variation % 14.4 % (11.5-15.5); Red Blood Count* 2.83 m/uL (4.00-5.20); White Blood Count* 12.33 K/uL (4.50-11.00)
[2025-03-19 03:36] LABS: Immature Granulocytes Abs Auto 0.00 K/uL (0.00-0.30)
[2025-03-19 03:37] LABS: Hemoglobin* 7.7 gm/dL (12.0-16.0); Lymphocytes Absolute Auto 1.00 K/uL (0.90-2.90); Slide Review Reflex No
[2025-03-19 03:40] LABS: Albumin* 3.5 g/dL (3.3-5.0); Chloride* 100 mmol/L (96-114); Potassium* 4.2 mmol/L (3.6-5.1); Sodium* 130 mmol/L (135-149)
[2025-03-19 03:43] LABS: Alanine Aminotransferase* 13 U/L (4-35); Alkaline Phosphatase* 94 U/L (40-150); Anion Gap 7 mEq/L (7-15); Aspartate Amino Transferase* 33 U/L (12-35); Bilirubin Total* 1.4 mg/dL (0.1-1.5); Blood Urea Nitrogen* 19 mg/dL (7-30); Calcium* 8.8 mg/dL (8.4-10.6); Carbon Dioxide* 23 mmol/L (20-32); Creatinine* 0.6 mg/dL (0.5-1.5); Est. Creatinine Clearance* 26.02; Estimated Glomerular Filt Rate 87 ml/min; Glucose* 79 mg/dL (60-115); Total Protein* 6.4 g/dL (6.0-8.3)
--- NOTE | 2025-03-19 05:03 | PC.NURSE ---
Shift note: Pt. AOx4. VSS. Afebrile. Pt denies SOB, dizziness, and GERONIMO. Pt reports chronic lower back pain. Pain med given and active ice applied; see EMAR. Pt up to BR w/ GB &?walker, SBA. Kyphotic. ?No adverse reactions noted throughout transfusion. NPO since midnight.?2 units of blood given, lab re-checked, Hgb increased. ?
[2025-03-19 06:38] LABS: Hemoglobin* 7.3 gm/dL (12.0-16.0)
--- NOTE | 2025-03-19 09:17 | P.ANES_ITS ---
Anesthesia Charges Start Date/Time Anesthesia Start Date: 03/19/25 Anesthesia Start Time: 08:56 Stop Date/Time Anesthesia Stop Date: 03/19/25 Anesthesia Stop Time: 09:09 Summary Extremes of Age - Over 70 or under 1: MDA Coding CPT Codes CPT Codes: ANES UPR GI NDSC PX NOS - 81010 ([id number]) P4 - PT W/SEV SYS DIS THREAT LIFE, QK - CLINICAL TRIAL ASSOCIATE 2-4 CNCRNT ANES PROC, QX - ELECTRICAL CONSTRUCTION PROJECT MANAGER SVC W/ MD MED DIRECTION Additional Codes: Summary - Extremes of Age - Over 70 or under 1: MDA ([id number])
--- NOTE | 2025-03-19 09:17 | P.ANES_ITS ---
Anesthesia Charges Start Date/Time Anesthesia Start Date: 03/19/25 Anesthesia Start Time: 08:56 Stop Date/Time Anesthesia Stop Date: 03/19/25 Anesthesia Stop Time: 09:09 Summary Extremes of Age - Over 70 or under 1: WELDER SETTER ELECTRON BEAM MACHINE Coding CPT Codes CPT Codes: ANES UPR GI NDSC PX NOS - 56321 ([id number]) P4 - PT W/SEV SYS DIS THREAT LIFE, QK - AIRFREIGHT LOADING SUPERVISOR 2-4 CNCRNT ANES PROC, QX - WELDER SETTER ELECTRON BEAM MACHINE SVC W/ MD MED DIRECTION Additional Codes: Summary - Extremes of Age - Over 70 or under 1: WELDER SETTER ELECTRON BEAM MACHINE ([id number]) Summary - Emergency: [id number] 1 W.PMRACHELLE 1 1 W.GAURANG
--- NOTE | 2025-03-19 09:17 | W.ANESCHARGE ---
Anesthesia Charges Start Date/Time Anesthesia Start Date: 03/19/25 Anesthesia Start Time: 08:56 Stop Date/Time Anesthesia Stop Date: 03/19/25 Anesthesia Stop Time: 09:09 Summary Extremes of Age - Over 70 or under 1: MDA Coding CPT Codes CPT Codes: ANES UPR GI NDSC PX NOS - 59027 ([id number]) P4 - PT W/SEV SYS DIS THREAT LIFE, QK - HEALTHCARE SCIENCE SPECIALIST 2-4 CNCRNT ANES PROC, QX - HOUSEMAID SVC W/ MD MED DIRECTION Additional Codes: Summary - Extremes of Age - Over 70 or under 1: MDA ([id number])
--- NOTE | 2025-03-19 09:17 | W.ANESCHARGE ---
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
[2025-03-19] MEDS: SODIUM CHLORIDE 1 GM TABLET PO ×3 (09:52→17:54)
[2025-03-19] MEDS: OMEPRAZOLE 20 MG CAPSULE DR 40 MG PO (09:52)
--- NOTE | 2025-03-19 10:25 | W.PC.NUTR.HO ---
Hospital Nutrition Assessment Patient Data Patient Gender: Female Patient Age: 85 Height: 149.86 cm Weight: 41.022 kg Body Mass Index: 18.2 Weight Calculations [place] Body Weight (lbs): 95.00 [place] Body Weight (kg): 43.09 Percent of [place] Body Weight: 95 Adjusted Body Weight (lbs): 93.86 Adjusted Body Weight (kg): 42.57 Basal Energy Expenditure (BEE): 922.50 Basal Energy Expenditure (BEE) Adjusted Weight: 937.30 Activity/Stress Factors Injury Factor/Activity Factor Value: 1.3 Total Energy Requirements Kcal requirements (current wt): 1199.250 Kcal requirements (adj wt): 1218.490 Protein Need (current wt): 1.2 Total Protein (current wt): 49.226 Protein Need (adj wt): 1.2 Total Protein (adj wt): 51.084 Fluid Need (current wt): 30 Total Fluid (current wt): 1230.660 Fluid Need (adj wt): 30 Total Fluid (adj wt): 1277.10 Nutrition Assessment Diet Order: NPO Allergies: NKFA Appetite Prior to Admission: Poor Hx Weight Loss: Yes (No significant, insidious loss since November 2023 of 3 kg) Hx Weight Gain: No Nausea: No Vomiting: No Diarrhea: No Hx Constipation: No Chewing Difficulty: No Swallowing Difficulty: No Diagnosis/Symptom or Procedure: Syncope, Anemia Clinical History: Medical history includes but not limited to PAD (peripheral artery disease) (01/12/24), Moderate to severe aortic stenosis (12/15/21), Cachexia (07/01/21), Stroke, Chronic hyponatremia, Iron deficiency anemia, Osteoporosis, GERD (gastroesophageal reflux disease), and Severe aortic stenosis. Current Living Situation: Lives at home independently with family support. Medications Medications: reviewed. Lab Results Lab Results: reviewed. Education Topic Comment: Of note, patient received iron-deficiency anemia and high protein, high calorie diet education in November 2023 related to anemia and low appetite. Assessment/Plan PES Statement: Underweight BMI related to low appetite and intakes, 3 kg loss since November 2023 as evidenced by BMI of 18.3 kg/m2. Nutritional Assessment Summary: RDN with Md consult for anemia. RDN attempted to visit with patient x3, however patient was not available today. Will continue to attempt visit at later date.
--- NOTE | 2025-03-19 10:32 | PM.IMPN1 ---
Assessment and Plan Assessment and plan (1) Acute blood loss anemia (ABLA): Problem comment: -likely from acute UGI bleed. -EGD shows erythema in gastric antrum but no active bleeding. bx pending. -already on H2 bernard and PPI. will continue. No nsaids. consider holding aspirin. already getting IV iron (was supposed to get infusion today 03/19/25) Status: Acute (2) Hyponatremia: Problem comment: - acute on chronic, likely worsened given poor po intake - already on salt tabs at home, will continue these 03/19 up to 130. Status: Acute (3) Chronic iron deficiency anemia: Problem comment: History of iron deficiency anemia chronically, per [facility] records: - 2016: EGD/Colonoscopy reassuring - 2015: lab evaluation c/w iron deficiency anemia without evidence of bone marrow dysfunction, started oral iron --> Hgb 12.23 February 2019 - 2021: Hgb 10.0, further workup with [facility], reassuring EGD and declined colonoscopy - [id number]: Hgb 9.3-12.1 with baseline of 10 during this time - May 2024: Hgb 7.0 and treated with IV Iron x2, declined further workup - December 2024: Hgb 9.8 - Feb/Mar 2025: Feraheme infusions scheduled (03/19/25 at 9:30 am and 03/26/25 at 9:30 am.) - February 2025: syncope, hgb 4.4 (2 units transfused) Status: Acute (4) Cachexia: Problem comment: - chronically poor appetite by history - BMI 18-19; has lost 3 kg from last hospital stay in 2023 Status: Acute (5) Severe aortic stenosis: Problem comment: - symptomatic with SOB - TAVR 07/09/22 Status: Acute (6) PAD (peripheral artery disease): Status: Acute Subjective Date Seen: 03/19/25 Interval history: Daily Progress Note - Hospital Medicine #: 2 CC: Acute severe anemia. Syncope. Likely ABLA + iron deficiency. 24 HOUR UPDATE: EGD: Completed 03/19/2025: Normal esophagus, small hiatal hernia, erythematous mucosa in the antrum. Normal duodenum. Biopsies pending. Patient is tired. She walked with PT this am. no presyncope or syncope. Notable Labs, Micro, Rads, Interventions: 107/45. Afebrile. Pulse 84. Respiratory rate 16. Pulse ox 95% on room air. Weight 41 kilos, BMI 18 Hemoglobin increased from 4.4-7.7 with 2 units of packed red blood cells on 03/18. Equilibrated to 7.3 this morning. CBC also reveals no change in her WBC count; 12 K PMN predominance of 82.6% Platelets are normal at 281 Sodium is up to 130 from 125. It would appear baseline seems to be in high 120s. The rest of her electrolytes and renal function are the same/normal/baseline. No imaging at admission. No micro at admission Objective: frail elderly but mentating normally Vitals: see above Lungs: Clear. Cardiac: S1S2. Abdomen: soft. non-tender. Disposition/Potential discharge - Likely home to tomorrow with family. Home Health order complete. Today I spent 50minutes seeing the patient, reviewing Expanse and EPIC notes/diagnostics, discussing the care plan with our care time that includes social work, PT/OT, pharmacy, RT, long-term and documenting my impressions and plan in the medical record. hospitalization and explained the difference between palliative care and hospice care. I described the likelihood of returning to previous functioning and what the options are going forward for care. Exam Const: Vital Signs, click to edit/add: Vital Signs - 24 hr 03/18/25 16:41 03/18/25 19:54 03/18/25 20:40 Temperature 97.9 F 99.0 F Pulse Rate Pulse Rate [Right Pulse Oximeter] 90 99 Respiratory Rate 48 H 20 18 Blood Pressure Blood Pressure [Ri ght Arm] 114/47 L Blood Pressure [Ri ght Upper Arm] 123/57 L 108/43 L Pulse Oximetry 99 93 Oxygen Delivery Me thod Room Air Room Air 03/18/25 20:40 03/18/25 21:33 03/18/25 22:05 Temperature 98.7 F 98.8 F Pulse Rate 99 96 Pulse Rate [Right Pulse Oximeter] Respiratory Rate 18 20 20 Blood Pressure 110/46 L 113/47 L Blood Pressure [Ri ght Arm] Blood Pressure [Ri ght Upper Arm] Pulse Oximetry 93 96 Oxygen Delivery Me thod Room Air Room Air Room Air 03/18/25 22:06 03/18/25 23:05 03/18/25 23:05 Temperature 98.8 F 98.7 F Pulse Rate 92 92 Pulse Rate [Right Pulse Oximeter] Respiratory Rate 18 18 18 Blood Pressure 110/47 L 110/44 L Blood Pressure [Ri ght Arm] Blood Pressure [Ri ght Upper Arm] Pulse Oximetry 94 95 Oxygen Delivery Me thod Room Air 03/18/25 23:05 03/19/25 00:33 03/19/25 00:50 Temperature 98.7 F 98 F 98.4 F Pulse Rate 89 87 Pulse Rate [Right Pulse Oximeter] 92 Respiratory Rate 18 18 18 Blood Pressure 104/45 L 105/44 L Blood Pressure [Ri ght Arm] 114/44 L Blood Pressure [Ri ght Upper Arm] Pulse Oximetry 93 92 95 Oxygen Delivery Me thod Room Air Room Air Room Air 03/19/25 01:16 03/19/25 01:27 03/19/25 01:46 Temperature 98.0 F 98.2 F Pulse Rate 87 85 86 Pulse Rate [Right Pulse Oximeter] Respiratory Rate 18 18 Blood Pressure 105/51 L 108/62 Blood Pressure [Ri ght Arm] Blood Pressure [Ri ght Upper Arm] Pulse Oximetry 94 96 Oxygen Delivery Me thod Room Air 03/19/25 02:45 03/19/25 02:45 03/19/25 03:45 Temperature 98.1 F 98.1 F 98.1 F Pulse Rate 80 89 Pulse Rate [Right Pulse Oximeter] 80 Respiratory Rate 18 18 20 Blood Pressure 130/56 L 125/49 L Blood Pressure [Ri ght Arm] 130/56 L Blood Pressure [Ri ght Upper Arm] Pulse Oximetry 94 94 92 Oxygen Delivery Me thod Room Air Room Air Room Air 03/19/25 07:00 03/19/25 07:30 03/19/25 07:35 Temperature 98.1 F Pulse Rate 84 Pulse Rate [Right Pulse Oximeter] 84 84 Respiratory Rate 16 16 Blood Pressure Blood Pressure [Ri ght Arm] 107/45 L Blood Pressure [Ri ght Upper Arm] Pulse Oximetry 95 Oxygen Delivery Me thod Room Air Labs Labs: Laboratory Results - last 24 hr 03/18/25 03/18/25 03/19/25 17:50 19:19 03:20 WBC 12.08 H 12.33 H RBC 1.76 L 2.83 L Hgb 4.4 L* 7.7 L* Hct 15.1 L 24.2 L MCV 86 86 MCH 25 L 27 MCHC 29 L 32 RDW Coeff of [place] 14.7 14.4 Plt Count 377 281 Neut % (Auto) 89.4 H 82.6 H Lymph % (Auto) 4.6 L 7.9 L [place] % (Auto) 4.2 8.5 Eos % (Auto) 0.7 0.4 Baso % (Auto) 0.4 0.2 Neut # (Auto) 10.80 H 10.20 H Lymph # (Auto) 0.60 L 1.00 [place] # (Auto) 0.50 1.00 H Eos # (Auto) 0.10 0.00 Baso # (Auto) 0.00 0.00 Abs Immat Gran (auto) 0.10 0.00 Imm/Tot Granulo (auto) 0.7 0.4 Sodium 125 L 130 L Potassium 4.2 4.2 Chloride 93 L 100 Carbon Dioxide 23 23 Anion Gap 9 7 BUN 27 19 Creatinine 0.8 0.6 Estimated Creat Clear 26.02 26.02 Estimated GFR 72 87 Glucose 112 79 Calcium 9.3 8.8 Total Bilirubin 1.4 AST 33 ALT 13 Alkaline Phosphatase 94 Total Protein 6.4 Albumin 3.5 Blood Type O Positive Antibody Screen NEGATIVE Crossmatch ([facility]) See Detail 03/19/25 06:00 WBC RBC Hgb 7.3 L* Hct MCV MCH MCHC RDW Coeff of [place] Plt Count Neut % (Auto) Lymph % (Auto) [place] % (Auto) Eos % (Auto) Baso % (Auto) Neut # (Auto) Lymph # (Auto) [place] # (Auto) Eos # (Auto) Baso # (Auto) Abs Immat Gran (auto) Imm/Tot Granulo (auto) Sodium Potassium Chloride Carbon Dioxide Anion Gap BUN Creatinine Estimated Creat Clear Estimated GFR Glucose Calcium Total Bilirubin AST ALT Alkaline Phosphatase Total Protein Albumin Blood Type Antibody Screen Crossmatch ([facility] [place])
--- NOTE | 2025-03-19 12:51 | PC.SOCIAL ---
Discharge planning: plastics worker met with the pt and her daughter, Denice, to discuss discharge planning. plastics worker explained to the pt and her daughter that the pt is being recommended for home care PT/OT. The pt is open to this and would like this worker to send a referral to [facility] since her PCP, Dr. Moseley, is through [facility] in [place]. plastics worker faxed the referral to [facility] at fax number #[phone]. Social work to follow-up as needed.
[2025-03-19] MEDS: FAMOTIDINE 20 MG TABLET 40 MG PO (17:54)
--- NOTE | 2025-03-19 18:20 | PC.NURSE ---
End of Shift: Patient pleasant and cooperative, A&O. VSS, afebrile. Pt denies pain this shift. EGD complete this shift, no BM. SBA with walker and gait belt. Tolerating regular diet, denies nausea. Pt appears to be resting comfortably, call light within reach.
[2025-03-19 18:24] LABS: Hemoglobin* 8.3 gm/dL (12.0-16.0)
[2025-03-19 19:13] LABS: Sodium* 130 mmol/L (135-149)
[2025-03-19] MEDS: GABAPENTIN 100 MG CAPSULE 200 MG PO (20:46)
[2025-03-19] MEDS: ACETAMINOPHEN 500 MG TABLET 1000 MG PO (20:47)
[2025-03-20] VITALS (10 sets, daily range): BP systolic 113–160; BP diastolic 60–85; PULSE 84–101; RESP 16–18; TEMP 36.7–37.2; O2SAT 93–98; BMI 18.1
[2025-03-20 06:25] LABS: Hematocrit* 22.6 % (33.0-51.0); Mean Corpuscular HGB Conc 32 gm/dL (32-36); Mean Corpuscular Hemoglobin 27 pg (26-34); Mean Corpuscular Volume 85 fL (80-100); Red Blood Count* 2.66 m/uL (4.00-5.20); White Blood Count* 6.85 K/uL (4.50-11.00)
[2025-03-20 06:34] LABS: Chloride* 102 mmol/L (96-114); Hemoglobin* 7.3 gm/dL (12.0-16.0); Potassium* 3.5 mmol/L (3.6-5.1); Slide Review Reflex No; Sodium* 132 mmol/L (135-149)
[2025-03-20 06:37] LABS: Blood Urea Nitrogen* 16 mg/dL (7-30); Creatinine* 0.6 mg/dL (0.5-1.5); Est. Creatinine Clearance* 25.99; Estimated Glomerular Filt Rate 87 ml/min
[2025-03-20 06:38] LABS: Anion Gap 3 mEq/L (7-15); Calcium* 8.5 mg/dL (8.4-10.6); Carbon Dioxide* 27 mmol/L (20-32); Glucose* 82 mg/dL (60-115)
[2025-03-20] MEDS: SODIUM CHLORIDE 1 GM TABLET PO ×2 (08:26→13:26)
[2025-03-20] MEDS: SODIUM CHLORIDE 0.9 % (FLUSH) 10 ML SYRINGE 5 ML IVF ×2 (08:26)
[2025-03-20] MEDS: OMEPRAZOLE 20 MG CAPSULE DR 40 MG PO (08:26)
--- NOTE | 2025-03-20 09:43 | P.NUTASMT_ITS ---
Hospital Nutrition Assessment Patient Data Patient Gender: Female Patient Age: 85 Height: 149.86 cm Weight: 40.77 kg Body Mass Index: 18.1 Weight Calculations [place] Body Weight (lbs): 95.00 [place] Body Weight (kg): 43.09 Percent of [place] Body Weight: 95 Adjusted Body Weight (lbs): 93.72 Adjusted Body Weight (kg): 42.51 Basal Energy Expenditure (BEE): 920.09 Basal Energy Expenditure (BEE) Adjusted Weight: 936.73 Activity/Stress Factors Injury Factor/Activity Factor Value: 1.3 Total Energy Requirements Kcal requirements (current wt): 1196.117 Kcal requirements (adj wt): 1217.749 Protein Need (current wt): 1.2 Total Protein (current wt): 48.924 Protein Need (adj wt): 1.2 Total Protein (adj wt): 51.012 Fluid Need (current wt): 30 Total Fluid (current wt): 1223.100 Fluid Need (adj wt): 30 Total Fluid (adj wt): 1275.30 Nutrition Assessment Diet Order: Regular Allergies: NKFA Appetite Prior to Admission: Poor Appetite and Intake: 75% x2 03/19 Hx Appetite Changes: No (Has been poor for long time, per pt) Hx Weight Loss: Yes (No significant, insidious loss since November 2023 of 3 kg) Hx Weight Gain: No Nausea: No Vomiting: No Diarrhea: No Hx Constipation: No Chewing Difficulty: No Swallowing Difficulty: No Diagnosis/Symptom or Procedure: Syncope, Anemia Clinical History: Medical history includes but not limited to PAD (peripheral artery disease) (01/12/24), Moderate to severe aortic stenosis (12/15/21), Cachexia (07/01/21), Stroke, Chronic hyponatremia, Iron deficiency anemia, Osteoporosis, GERD (gastroesophageal reflux disease), and Severe aortic stenosis. Current Living Situation: Lives at home independently with family support. Medications Medications: reviewed. Lab Results Lab Results: reviewed. Education Topic Comment: Offered diet education related to anemia and poor appetite/underweight BMI. Patient declined education and handouts. Of note, patient received iron-deficiency anemia and high protein, high calorie diet education in November 2023 related to anemia and low appetite. Assessment/Plan PES Statement: Underweight BMI related to low appetite and intakes, 3 kg loss since November 2023 as evidenced by BMI of 18.3 kg/m2. Nutritional Assessment Summary: RDN with Md consult for anemia. RDN attempted to visited with patient whom reports a low appetite for a long time. She does not think she has lost weight recently, however her BMI is underweight. Offered nutrition supplements, she declined a this time. Offered diet education, however she declined at this time. Meal intakes yesterday were adequate at 75%. She was eating breakfast during visit. Concern for malnutrition with history of underweight BMI, low appetite, and cachexia. Discharge Plan-Living Situation: Home with family support. Goals: Adequate oral intakes of 50%+ meals. Plan/Recommendation: Diet order per MD order. Can offer nutrition supplements if patient desires. She declined scheduled supplements at this time. RDN will continue to monitor and follow-up prn. Malnutrition Assessment Current Energy Intake: Less Than 75% Estimated Timeframe Of Energy Intake: Greater Than Or Equal To 3 Months Weight Changes: None (loss of 3 kg in 1 year. No weight history since November 2023. ) Recommended Malnutrition Diagnosis: Further Physical Evaluation Required By MD To Determine Based On: Inadequate Energy Intakes
--- NOTE | 2025-03-20 10:01 | PC.SOCIAL ---
Addendum entered by GAL Ng 03/20/25 12:38: Discharge planning: chamber worker spoke to the pt this afternoon and informed her that [facility] can open her for home care services and can see her as early as 03/22/25. Social work to follow-up as needed. Original Note: Discharge planning: [facility] able to accept the pt for home care services and they can see her as soon as 03/22/25. They will connect with the pt to schedule the intake appointment for 03/22. They will also follow-up with this worker to verify the pt's discharge date. Social work to follow-up as needed.
--- NOTE | 2025-03-20 10:06 | P.DS_ITS ---
DS: Providers Provider Date Seen: 03/20/25 Date of admission: 03/18/25 20:57 Primary care physician: Liz Moseley DO Admitting Clinician: Leanna Quiñones MD Consults: 03/18/25 20:58 Consult to Nutrition [CONS] Routine Comment: Reason for consult:: Miscellaneous Comment: anemia Consult to Physical Therapy [CONS] Routine Comment: Reason(s) for PT Consult:: Evaluate and Treat Any Restrictions?:: No Restrictions Consult to Short Story Writer [CONS] Routine Comment: Reason for Consult:: Discharge Planning Needs 03/18/25 20:59 Consult to Occupational Therapy [CONS] Routine Comment: Reason(s) for OT Consult:: Evaluate and Treat Any Restrictions?:: No Restrictions Attending Physician on discharge: ARIELLE Bell, PA-C [facility] Hospitalist Date of Discharge: 03/20/25 DS: Diagnosis Discharge Diagnosis (1) Chronic iron deficiency anemia: Status: Acute Problem details: History of iron deficiency anemia chronically, per the medical center records: - 2015: EGD/Colonoscopy reassuring - 2015: lab evaluation c/w iron deficiency anemia without evidence of bone marrow dysfunction, started oral iron --> Hgb 12.23 February 2019 - 2021: Hgb 10.0, further workup with [facility], reassuring EGD and declined colonoscopy - [id number]: Hgb 9.3-12.1 with baseline of 10 during this time - May 2024: Hgb 7.0 and treated with IV Iron x2, declined further workup - December 2024: Hgb 9.8 - Mar 2025: Feraheme infusions scheduled (03/19/25 at 9:30 am and 03/26/25 at 9:30 am.) - February 2025: syncope, hgb 4.4 (2 units transfused). Total of 3 units PRBC transfused prior to discharge, last transfusion on 03/20/25. Repeat hemoglobin on day of discharge was []. Patient is scheduled for close outpatient follow-up with PCP, Dr. Hernandez, tomorrow 03/21 at 1:30 p.m.. (2) Acute blood loss anemia (ABLA): Status: Ruled-out Problem details: On admission, hemoglobin 4.4, symptomatic with syncope. Concern was for an acute upper GI bleed. EGD showing erythema in gastric antrum but no active bl eeding. Biopsies were obtained and pending at time of discharge. In reviewing EMR, patient has declined colonoscopy for further workup to rule out further source of bleed. UGI bleed ruled out during this admission. Patient will continue on H2 bernard and PPI. No NSAIDs. Scheduled for Feraheme (iron transfusion) on 03/19/25. Discussed with permanent mold supervisor at [facility] who will discuss rescheduling with her PCP, Dr. Moseley. TBD in outpatient follow up. (3) Hyponatremia: Status: Acute Problem details: Acute on chronic, likely worsened given poor po intake. Baseline 129-132. Continued on home salt tabs. Improved to 132 prior to discharge. (4) Cachexia: Status: Acute Problem details: Chronically poor appetite by history. BMI 18-19; has lost 3 kg from last hospital stay in 2023 (5) Severe aortic stenosis: Status: Acute Problem details: - symptomatic with SOB - TAVR 07/09/22 (6) PAD (peripheral artery disease): Status: Acute Problem details: -chronic DS: Summary Hospital Course Hospital Course: Course of care and details as noted above. Admitted to hospital with symptomatic anemia, hemoglobin 4.4. Received a total of 3 units PRBC. Discharge with close follow-up and repeat hemoglobin is scheduled for 03/21/25. Feraheme infusion to be rescheduled in outpatient setting. Discussed with reference investigator at [facility] (03/20) who will take care of this after discussing with Dr. Moseley. Remainder of chronic medical comorbidities were monitored and managed with home medications. Status at Discharge Functional status at discharge: independent ambulation Overall status at discharge: patient is back to baseline Time Spent with Patient Time attestation: Total time spent providing and/or coordinating discharge services: Time spent: Greater than 30 minutes Exam Narrative: Exam Narrative: PHYSICAL EXAM General: Pleasant, conversant, NAD Cardiovascular: RRR Pulmonary: No dyspnea Neurological: Alert, answering questions appropriately Skin: Warm, dry. Const: Vital Signs, click to edit/add: Vital Signs - 24 hr 03/19/25 11:00 03/19/25 15:00 03/19/25 15:00 Temperature 97.6 F 98.0 F Pulse Rate 84 Pulse Rate [Right Pulse Oximeter] 72 86 Pulse Rate [orthos tatic lying Pulse Oximeter] Pulse Rate [orthos tatic sitting] Pulse Rate [orthos tatic standing] Respiratory Rate 18 18 Blood Pressure [Ri ght Arm] 119/55 L 129/54 L Blood Pressure [or thostatic lying Ri ght Arm] Blood Pressure [or thostatic sitting] Blood Pressure [or thostatic standing ] Pulse Oximetry 99 98 Oxygen Delivery Me thod Room Air Room Air 03/19/25 15:00 03/19/25 15:21 03/19/25 19:00 Temperature 98.2 F Pulse Rate Pulse Rate [Right Pulse Oximeter] 86 81 Pulse Rate [orthos tatic lying Pulse Oximeter] 86 Pulse Rate [orthos tatic sitting] 99 Pulse Rate [orthos tatic standing] 89 Respiratory Rate 18 18 Blood Pressure [Ri ght Arm] 118/62 Blood Pressure [or thostatic lying Ri ght Arm] 129/54 L Blood Pressure [or thostatic sitting] 136/60 Blood Pressure [or thostatic standing ] 143/63 H Pulse Oximetry 98 Oxygen Delivery Me thod Room Air 03/19/25 23:00 03/19/25 23:00 03/19/25 23:00 Temperature 98.9 F Pulse Rate 79 Pulse Rate [Right Pulse Oximeter] 81 88 Pulse Rate [orthos tatic lying Pulse Oximeter] Pulse Rate [orthos tatic sitting] Pulse Rate [orthos tatic standing] Respiratory Rate 18 16 Blood Pressure [Ri ght Arm] 121/66 Blood Pressure [or thostatic lying Ri ght Arm] Blood Pressure [or thostatic sitting] Blood Pressure [or thostatic standing ] Pulse Oximetry 96 Oxygen Delivery Me thod Room Air 03/20/25 02:47 03/20/25 08:24 03/20/25 08:34 Temperature 99 F 98.4 F Pulse Rate 101 H Pulse Rate [Right Pulse Oximeter] 84 91 Pulse Rate [orthos tatic lying Pulse Oximeter] Pulse Rate [orthos tatic sitting] Pulse Rate [orthos tatic standing] Respiratory Rate 16 16 Blood Pressure [Ri ght Arm] 118/66 113/61 Blood Pressure [or thostatic lying Ri ght Arm] Blood Pressure [or thostatic sitting] Blood Pressure [or thostatic standing ] Pulse Oximetry 93 95 Oxygen Delivery Me thod Room Air Room Air DS: Data Data Completed and Pending Labs on day of discharge: Labs from last 24 hours 03/20/25 03/19/25 03/18/25 05:40 16:18 19:19 WBC 6.85 RBC 2.66 L Hgb 7.3 L* 8.3 L Hct 22.6 L MCV 85 MCH 27 MCHC 32 Plt Count 282 Sodium 132 L 130 L Potassium 3.5 L Chloride 102 Carbon Dioxide 27 Anion Gap 3 L BUN 16 Creatinine 0.6 Estimated Creat Clear 25.99 Estimated GFR 87 Glucose 82 Calcium 8.5 Blood Type O Positive Antibody Screen NEGATIVE Crossmatch ([facility]) See Detail Discharge Plan Discharge Disposition: Home, Self-Care Date of Admission: 03/18/25 20:57 Attending Provider on Discharge: Mona Merlos Primary Care Provider: Liz Moseley Condition: Unchanged Anticipated Discharge Date/Time: 03/20/25 14:00 Discharge Medications: Continued amlodipine 5 mg tablet 5 mg PO DAILY omeprazole 40 mg capsule,delayed release(DR/EC) 40 mg PO DAILY carboxymethylcellulose sodium [Refresh Plus] 0.5 % dropperette 1 drp ophthalmic (eye-left) QID PRN cholecalciferol (vitamin D3) 25 mcg (1,000 unit) capsule 25 mcg PO DAILY multivitamin [Multiple Vitamins] Tablet 1 tab PO DAILY sodium chloride 1,000 mg Tablet,Soluble 1,000 mg PO TIDWM Qty: 90 0RF acetaminophen 500 mg tablet 1,000 mg PO TID PRN (Reason: Back Pain) Qty: 100 0RF gabapentin 100 mg capsule 200 mg PO HS diclofenac sodium 1 % gel 4 g TOPICAL QID PRN Rx Instructions: Apply 2-4 g topically to affected area(s) four times daily. As needed for pain polyethylene glycol 3350 [Miralax] 17 gram Powder In Packet 17 g PO BID PRN sennosides-docusate sodium [Stool Softener-Laxative] 8.6-50 mg Tablet 1 tab-cap PO DAILY aspirin 81 mg capsule 81 mg PO DAILY estradiol 0.01 % (0.1 mg/gram) cream 1 appful VAGINAL DAILY PRN (Reason: vaginal dryness) famotidine 40 mg tablet 40 mg PO QPM calcium carbonate-vitamin D3 [Calcium 600 + D(3)] 600 mg-10 mcg (400 unit) tablet 1 tab PO DAILY Additional Instructions: RESUME HOME CARES. YOU HAVE RECEIVED A TOTAL OF 3 UNITS PRBC. YOU WILL NEED TO RESCHEDULE YOUR IRON INFUSION DURING YOUR OUTPATIENT FOLLOW-UP. YOUR UGI DID NOT SHOW AN ACTIVE BLEED. BIOPSIES ARE PENDING. CONSIDER COLONOSCOPY IN OUTPATIENT SETTING. CONTINUE TO TAKE YOUR OMEPRAZOLE AND FAMOTIDINE. DO NOT TAKE ANY NSAIDS - IBUPROFEN, ADVIL, NAPROXEN, NAPROSYN PRODUCTS. YOU HAVE A FOLLOW-UP APPOINTMENT WITH DR. HERNANDEZ AND REPEAT HEMOGLOBIN TOMORROW, 03/21/2025 - MAKE SURE A FAMILY MEMBER ATTENDS THIS WITH YOU. Activity Level: Activity as Tolerated Discharge Diet: Regular Follow Up Appointments: Liz Moseley DO [Primary Care Provider, Family Practice] - 03/21/25 1:30 pm Referral Note: [facility] for hospital follow-up, please have a family member with you at this appointment. Will have a hgb check as well. Forms: [employer] Info Instructions
[2025-03-20] MEDS: 0.9 % SODIUM CHLORIDE 500 ML 250 ML IV (10:44)
--- NOTE | 2025-03-20 10:53 | P.DS_ITS ---
DS: Providers Provider Date of admission: 03/18/25 20:57 Primary care physician: Liz Moesley DO Admitting Clinician: Leanna Quiñones MD Consults: 03/18/25 20:58 Consult to Nutrition [CONS] Routine Comment: Reason for consult:: Miscellaneous Comment: anemia Consult to Physical Therapy [CONS] Routine Comment: Reason(s) for PT Consult:: Evaluate and Treat Any Restrictions?:: No Restrictions Consult to Speech Therapy Director [CONS] Routine Comment: Reason for Consult:: Discharge Planning Needs 03/18/25 20:59 Consult to Occupational Therapy [CONS] Routine Comment: Reason(s) for OT Consult:: Evaluate and Treat Any Restrictions?:: No Restrictions Attending Physician on discharge: Leanna Quiñones MD DS: Summary Hospital Course Hospital Course: Course of care and details as noted above. Admitted to hospital with symptomatic anemia, hemoglobin 4.4. Received a total of 3 units PRBC. Discharge with close follow-up and repeat hemoglobin within 24-48 hours. Feraheme infusion to be rescheduled. Discussed with silver recovery operator at [facility] (03/20) who will take care of this after discussing with Dr. Moseley. Remainder of chronic medical comorbidities were monitored and managed with home medications. Time Spent with Patient Time attestation: Total time spent providing and/or coordinating discharge services: Exam Const: Vital Signs, click to edit/add: Vital Signs - 24 hr 03/19/25 11:00 03/19/25 15:00 03/19/25 15:00 Temperature 97.6 F 98.0 F Pulse Rate 84 Pulse Rate [Right Pulse Oximeter] 72 86 Pulse Rate [orthos tatic lying Pulse Oximeter] Pulse Rate [orthos tatic sitting] Pulse Rate [orthos tatic standing] Respiratory Rate 18 18 Blood Pressure Blood Pressure [Ri ght Arm] 119/55 L 129/54 L Blood Pressure [or thostatic lying Ri ght Arm] Blood Pressure [or thostatic sitting] Blood Pressure [or thostatic standing ] Pulse Oximetry 99 98 Oxygen Delivery Me thod Room Air Room Air 03/19/25 15:00 03/19/25 15:21 03/19/25 19:00 Temperature 98.2 F Pulse Rate Pulse Rate [Right Pulse Oximeter] 86 81 Pulse Rate [orthos tatic lying Pulse Oximeter] 86 Pulse Rate [orthos tatic sitting] 99 Pulse Rate [orthos tatic standing] 89 Respiratory Rate 18 18 Blood Pressure Blood Pressure [Ri ght Arm] 118/62 Blood Pressure [or thostatic lying Ri ght Arm] 129/54 L Blood Pressure [or thostatic sitting] 136/60 Blood Pressure [or thostatic standing ] 143/63 H Pulse Oximetry 98 Oxygen Delivery Me thod Room Air 03/19/25 23:00 03/19/25 23:00 03/19/25 23:00 Temperature 98.9 F Pulse Rate 79 Pulse Rate [Right Pulse Oximeter] 81 88 Pulse Rate [orthos tatic lying Pulse Oximeter] Pulse Rate [orthos tatic sitting] Pulse Rate [orthos tatic standing] Respiratory Rate 18 16 Blood Pressure Blood Pressure [Ri ght Arm] 121/66 Blood Pressure [or thostatic lying Ri ght Arm] Blood Pressure [or thostatic sitting] Blood Pressure [or thostatic standing ] Pulse Oximetry 96 Oxygen Delivery Me thod Room Air 03/20/25 02:47 03/20/25 08:24 03/20/25 08:34 Temperature 99 F 98.4 F Pulse Rate 101 H Pulse Rate [Right Pulse Oximeter] 84 91 Pulse Rate [orthos tatic lying Pulse Oximeter] Pulse Rate [orthos tatic sitting] Pulse Rate [orthos tatic standing] Respiratory Rate 16 16 Blood Pressure Blood Pressure [Ri ght Arm] 118/66 113/61 Blood Pressure [or thostatic lying Ri ght Arm] Blood Pressure [or thostatic sitting] Blood Pressure [or thostatic standing ] Pulse Oximetry 93 95 Oxygen Delivery Me thod Room Air Room Air 03/20/25 10:38 Temperature 98.3 F Pulse Rate 89 Pulse Rate [Right Pulse Oximeter] Pulse Rate [orthos tatic lying Pulse Oximeter] Pulse Rate [orthos tatic sitting] Pulse Rate [orthos tatic standing] Respiratory Rate 16 Blood Pressure 140/60 H Blood Pressure [Ri ght Arm] Blood Pressure [or thostatic lying Ri ght Arm] Blood Pressure [or thostatic sitting] Blood Pressure [or thostatic standing ] Pulse Oximetry 98 Oxygen Delivery Me thod Room Air DS: Data Data Completed and Pending Labs on day of discharge: Labs from last 24 hours 03/20/25 03/19/25 03/18/25 05:40 16:18 19:19 WBC 6.85 RBC 2.66 L Hgb 7.3 L* 8.3 L Hct 22.6 L MCV 85 MCH 27 MCHC 32 Plt Count 282 Sodium 132 L 130 L Potassium 3.5 L Chloride 102 Carbon Dioxide 27 Anion Gap 3 L BUN 16 Creatinine 0.6 Estimated Creat Clear 25.99 Estimated GFR 87 Glucose 82 Calcium 8.5 Blood Type O Positive Antibody Screen NEGATIVE Crossmatch (AHG) See Detail Discharge Plan Discharge Disposition: Home, Self-Care Date of Admission: 03/18/25 20:57 Attending Provider on Discharge: Mona Merlos Primary Care Provider: Liz Moseley Condition: Unchanged Anticipated Discharge Date/Time: 03/20/25 14:00 Discharge Medications: Continued amlodipine 5 mg tablet 5 mg PO DAILY omeprazole 40 mg capsule,delayed release(DR/EC) 40 mg PO DAILY carboxymethylcellulose sodium [Refresh Plus] 0.5 % dropperette 1 drp ophthalmic (eye-left) QID PRN cholecalciferol (vitamin D3) 25 mcg (1,000 unit) capsule 25 mcg PO DAILY multivitamin [Multiple Vitamins] Tablet 1 tab PO DAILY sodium chloride 1,000 mg Tablet,Soluble 1,000 mg PO TIDWM Qty: 90 0RF acetaminophen 500 mg tablet 1,000 mg PO TID PRN (Reason: Back Pain) Qty: 100 0RF gabapentin 100 mg capsule 200 mg PO HS diclofenac sodium 1 % gel 4 g TOPICAL QID PRN Rx Instructions: Apply 2-4 g topically to affected area(s) four times daily. As needed for pain polyethylene glycol 3350 [Miralax] 17 gram Powder In Packet 17 g PO BID PRN sennosides-docusate sodium [Stool Softener-Laxative] 8.6-50 mg Tablet 1 tab-cap PO DAILY aspirin 81 mg capsule 81 mg PO DAILY estradiol 0.01 % (0.1 mg/gram) cream 1 appful VAGINAL DAILY PRN (Reason: vaginal dryness) famotidine 40 mg tablet 40 mg PO QPM calcium carbonate-vitamin D3 [Calcium 600 + D(3)] 600 mg-10 mcg (400 unit) tablet 1 tab PO DAILY Additional Instructions: RESUME HOME CARES. YOU WILL NEED A REPEAT HEMOGLOBIN IN THE NEXT 1-2 DAYS. THIS CAN BE DONE AT THE [facility]. Activity Level: Activity as Tolerated Discharge Diet: Regular Follow Up Appointments: Liz Moseley DO [Primary Care Provider, Family Practice] Referral Note: 1-2 days if able. She will need a hgb check as well Forms: [employer] Info Instructions
[2025-03-20 14:11] LABS: Hemoglobin* 10.4 gm/dL (12.0-16.0)
== END 2025-03-20 15:00 | disposition home or self-care (01) | DRG 812 ==
LOC: ED 19:30 → MEDSURG 19:50
PROVIDERS: Family Medicine; Physician Assistant; Admitting Provider Family Medicine; Emergency Provider Emergency Medicine Emergency Medical Services; PCP Family Medicine; Visit Provider Family Medicine
DX: D62 Acute posthemorrhagic anemia (principal); R64 Cachexia; Z68.1 Body mass index [BMI] 19.9 or less, adult; E87.1 Hypo-osmolality and hyponatremia; K29.70 Gastritis, unspecified, without bleeding; K44.9 Diaphragmatic hernia without obstruction or gangrene; K21.9 Gastro-esophageal reflux disease without esophagitis; I73.9 Peripheral vascular disease, unspecified; G89.29 Other chronic pain; M54.9 Dorsalgia, unspecified; Z79.82 Long term (current) use of aspirin; I35.0 Nonrheumatic aortic (valve) stenosis; Z95.2 Presence of prosthetic heart valve; Z86.0100 Personal history of colon polyps, unspecified
CPT/HCPCS: 00731; 36415; 36430; 43239; 80048; 80053; 84295; 85018; 85025; 85027; 86850; 86900; 86901; 86922; 88305; 88341; 88342; 93005; 97116; 97161; 97165; 97535; 99100; 99285; A9270; J1938; J2704; J3490; J7030; P9016